=== PATIENT | male | born 1955 | race Caucasian/White ===

== ENCOUNTER 2019-10-07 18:09 | Emergency (ER) | payer MEDICARE, SELFPAY ==
[2019-10-07 18:10] VITALS: BP 146/77; PULSE 85; RESP 17; TEMP 36.9; O2SAT 100; BMI 33.9
--- NOTE | 2019-10-07 19:15 | CT_ITS ---
STUDY: CT ABDOMEN AND PELVIS WITHOUT CONTRAST REASON FOR EXAM: Male, 63 years old. RT FLANK/GROIN PAIN -- PRIOR CHOLECYSTECTOMY,HERNIA REPAIR -- HX:HTN RADIATION DOSAGE (If Supplied By Facility): CTDIvol = ( 14.45 ) mGy, DLP = ( 736.47 ) mGycm TECHNIQUE: Transaxial images were obtained from the dome of the diaphragm to the symphysis pubis without oral contrast, and without intravenous contrast. Sagittal and coronal images were reconstructed. Individualized dose optimization techniques were used for this CT. COMPARISON: 09/20/2015 FINDINGS: The visualized lung bases are unremarkable. The visualized portions of the heart are within normal limits. Normal liver. There is non-visualization of the gallbladder, which may be secondary to either contraction or a prior cholecystectomy. Normal spleen. Normal pancreas. Normal bilateral adrenal glands. Normal right kidney. Normal left kidney. There is a small hiatal hernia. Normal small intestine. There are multiple colonic diverticula consistent with diverticulosis. The appendix is visualized and appears normal. There is diffuse atherosclerotic calcification of the abdominal aorta, without a demonstrated aneurysm. Normal inferior vena cava. Normal retroperitoneum. Normal urinary bladder. There are prostatic calcifications. Small bilateral fat-containing inguinal hernias. Increased degenerative change as compared to exam from 2014 CT/Abdomen/Pelvis without Cont IMPRESSION: No acute findings. Unremarkable appendix. Mild chronic diverticulosis without evidence of acute diverticulitis. Electronically Signed: Charli Morgan DO at 20:23 EST Tel , Service support ,
[2019-10-07 19:34] LABS: Bacteria 0 SEEN /hpf (None Seen); Mucous, Urine 0 SEEN /hpf (<or=2+); Red Blood Cells-Urine 0 SEEN /hpf (0-5); White Blood Cells 0 SEEN /hpf (0-5)
[2019-10-07 19:36] LABS: Color, Urine Yellow (Yellow); Glucose, Dipstick Normal (Normal); Ketone-Dipstick Negative (Negative); Leukocyte Esterase-Dipstick Negative /ul (Negative); Nitrite-Dipstick Negative (Negative); Occult Blood-Urine Negative /ul (Negative); Protein-Dipstick Negative (Negative); Urine Bilirubin Dipstick Negative (Negative); Urine Clarity Sl. Cloudy (Clear); Urine Urobilinogen Normal (Normal)
[2019-10-07] MEDS: 0.9% Normal Saline 1,000 ML 1000 ML IV (19:44)
[2019-10-07] MEDS: Ketorolac 30 MG/ML Syringe IV (19:45)
[2019-10-07] MEDS: Ondansetron 4 MG/2 ML Vial IV (19:45)
[2019-10-07 19:46] LABS: Absolute Lymphocyte Count 1.39 X10^3/uL (0.83-4.51); Absolute Neutrophil Count 6.5 X10^3/uL (2.0-7.7); Basophil# 0.04 X10^3/uL; Basophil% 0.5 % (0-1); Eosinophils% 1.1 % (0-5); Hematocrit 36.8 % (40-54); Hemoglobin 12.7 g/dL (13.0-16.5); Lymphocyte # 1.39 X10^3/ul (4.0); Lymphocyte % 15.9 % (19-41); Mean Corp Hgb Conc 34.5 g/dL (32-36); Mean Corpuscular Hgb 31.8 pg (27.0-32.0); Monocyte# 0.62 X10^3/uL; Monocyte% 7.1 % (0-10); NRBC Flagged by Analyzer 0 % (0-5); Neutrophil # 6.54 X10^3/uL (2.7-7.7); Neutrophil % 75.1 % (47-70); Platelet Count 144 K/mm3 (150-450); RBC Distribution Width CV 11.9 % (11.6-14.6); RBC Distribution Width SD 40.4 fl (35.1-43.9); White Blood Count 8.7 K/mm3 (4.4-11.0)
[2019-10-07 19:59] LABS: Anion Gap 7 (5-15); BUN 28 mg/dL (7-18); Chloride 106 mmol/L (98-107); Creatinine, Serum 1.75 mg/dL (0.70-1.30); EST Glomerular Filtration Rate 42 mL/min (>60); Est Glom Filt Rate - Afr Amer 51 mL/min (>60); Estimated Creatinine Clearance 42.64 ml/min; Glucose 95 mg/dL (74-106); Potassium 3.9 mmol/L (3.5-5.1); Sodium Level 140 mmol/L (136-145)
[2019-10-07 20:08] LABS: Squamous Epithelial Cells - UA 0-5 SEEN /hpf (0-5)
--- NOTE | 2019-10-07 20:42 | ED.VISSUMM ---
- ER Visit Summary Date of Service: 10/07/19 Chief Complaint: Back pain History of Present Illness: The patient is a 63 M with right-sided back pain. The pain is in his lower back and radiates down into his groin. Nothing seemed to bring this on or set this off. It is worse with moving and sitting. Nothing seems to make it better. No associated symptoms like GI or symptoms. No fever or systemic symptoms. No history of this in the past. History of hernia surgery, cholecystectomy, and rectal abscess. Physical Examination: Afebrile and vital signs unremarkable. Heart regular. Lungs clear. Right lower quadrant tender to palpation. No guarding or rebound. Right CVA tender to palpation. Testicular exam unremarkable. Remainder of his exam is unremarkable. Normal testicular exam. No mass or hernia. No lesions. Normal cremasteric reflex. Normal lie. Nontender. Test Results: Hemoglobin 12.7 and platelets 144. BUN 28 and creatinine 1.75. Urinalysis normal. CT showed normal appendix and nothing acute. Emergency Department Course and Treatment: Patient was treated with fluids, Zofran, Toradol. He did have improvement of his symptoms. His work-up was unremarkable. I suspect this is myofascial pain. Will prescribe pain medicine and muscle relaxers. Follow-up with primary care for a recheck of symptoms and labs. Return for any new or worsening issues. Treatment Plan: As above Disposition: Discharge Impression: 1. Right flank pain This note was generated with [employer] dictation software. It may contain incorrect words, spelling, and punctuation that were not noted in review of the chart prior to signing ED Disposition - Plan for ED Patient: Instructions: FLANK PAIN, Uncertain Cause Prescriptions: cycloBENZAPRine HCl [Flexeril] 10 mg PO TID PRN #20 tab PRN Reason: Muscle Spasm Prescription Printed Naproxen [Naprosyn] 500 mg PO BID PRN #20 tab Prescription Printed Referrals: Valerio Babin III, MD [Primary Care Provider] -
--- NOTE | 2019-10-07 20:44 | ED.DEP ---
ED Disposition - Plan for ED Patient: Instructions: FLANK PAIN, Uncertain Cause Prescriptions: cycloBENZAPRine HCl [Flexeril] 10 mg PO TID PRN #20 tab PRN Reason: Muscle Spasm Prescription Printed Naproxen [Naprosyn] 500 mg PO BID PRN #20 tab Prescription Printed Referrals: Valerio Babin III, MD [Primary Care Provider] -
[2019-10-07 21:05] VITALS: BP 141/63; PULSE 80; RESP 19; O2SAT 98
== END 2019-10-07 21:06 | disposition home or self-care (01) ==
LOC: ED 19:41
PROVIDERS: Emergency Provider Emergency Medicine; Family Provider Family Medicine; PCP Family Medicine
DX: M54.5 Low back pain (principal); I10 Essential (primary) hypertension; Z90.49 Acquired absence of other specified parts of digestive tract; Z79.899 Other long term (current) drug therapy; F17.200 Nicotine dependence, unspecified, uncomplicated
CPT/HCPCS: 74176; 80048; 81001; 85025; 96361; 96374; 96375; 99282; J7030; A4216; J2405

== ENCOUNTER 2020-05-26 19:10 | Observation (INO) | payer MEDICARE, SELFPAY ==
[2020-05-26 19:11] VITALS: BP 138/88; PULSE 89; RESP 18; TEMP 36.7; O2SAT 97; BMI 32.7
--- NOTE | 2020-05-26 20:03 | EKG12_ITS ---
Test Reason : NUMB/TINGLING Blood Pressure : / mmHG Vent. Rate : 067 BPM Atrial Rate : 067 BPM P-R Int : 180 ms QRS Dur : 102 ms QT Int : 398 ms P-R-T Axes : 078 030 040 degrees QTc Int : 420 ms Normal sinus rhythm with sinus arrhythmia Normal ECG Confirmed by SHADI GARCIA, JOSE LUIS ([id number]), legal editor BHASKAR PEREZ ([id number]) on 06/03/2020 11:18:59 A M Referred By: JORJE Confirmed By:HARIKA HSU MD
--- NOTE | 2020-05-26 20:05 | CT_ITS ---
STUDY: CTA HEAD AND NECK WITH CONTRAST REASON FOR EXAM: Male, 64 years old. DIZZINESS,GAIT ISSUES AND NUMBNESS TO RT HAND WHEN LAYING DOWN X FEW WEEKS -- HX:HTN RADIATION DOSAGE (If Supplied By Facility): CTDIvol = ( 32.35 ) mGy, DLP = ( 1588.05 ) mGycm TECHNIQUE: CT angiography was performed with a multi-detector CT scanner. Data acquisition was obtained from the skull base through the vertex following intravenous administration of IV 100mL [id number]-370. MIP images were reconstructed from the axial data set. Post-processing of the angiographic images was performed, with multiplanar reformation and 3D reconstruction. Individualized dose optimization techniques were used for this CT. COMPARISON: No relevant priors. FINDINGS: Normal bilateral petrous carotid arteries. Normal right cavernous carotid artery with a normal supraclinoid bifurcation. Normal left cavernous carotid artery with a normal supraclinoid bifurcation. There is hypoplastic development of the right A1 segment of the anterior cerebral arteries with an atretic but intact artery. Normal left A1 segments of the anterior cerebral artery. Normal intact anterior communicating artery (ACOM). Normal bilateral A2 segments of the anterior cerebral arteries. Normal right M1 and M2 segments of the middle cerebral arteries, with a normal M1 bifurcation. Normal left M1 and M2 segments of the middle cerebral arteries, with a normal M1 bifurcation. Normal right posterior communicating artery (PCOM). There is non-visualization of the left posterior communicating artery (PCOM). Normal bilateral vertebral arteries. Normal basilar artery with a normal basilar bifurcation. The visualized bilateral superior cerebellar (SCA) arteries are normal. Normal bilateral P1, P2 and visualized P3 segments of the posterior cerebral arteries. There is no demonstrated aneurysm of the [place]. There is left occipital craniotomy with focal volume loss. There is cervical spondylosis. AORTIC ARCH: Normal visualized aortic arch. Normal origins of the brachiocephalic, left common carotid, and left subclavian arteries. RIGHT CAROTID ARTERIES: Normal right common carotid artery (CCA). Normal right common carotid bulb. Normal origin of the right internal carotid (ICA) artery without a hemodynamically significant stenosis. Normal visualized cervical portion of the right internal carotid artery. Normal origin of the right external carotid artery (ECA). LEFT CAROTID ARTERIES: Normal left common carotid artery (CCA). Normal left common carotid bulb. There is mild atherosclerotic plaque formation of the origin of the left internal carotid artery with less than 50% cross sectional diameter stenosis. Normal visualized cervical portion of the left internal carotid artery. Normal origin of the left external carotid artery (ECA). VERTEBRAL ARTERIES: Normal bilateral vertebral arteries. CT/CTA Head AND Neck W/ Contrast IMPRESSION: No aneurysm or high-grade narrowing. Electronically Signed: Jose Miguel Lombardi MD at 21:39 EDT , Service support ,
--- NOTE | 2020-05-26 20:10 | ED.DCSUM_ITS ---
History of Present Illness Chief Complaint: Numb/Ting Informant: Patient Onset: Weeks Current Severity: Mild Maximum Severity: Moderate Narrative: Patient presents secondary to intermittent tingling in his right hand and dragging of his right leg. He states he is noted his right hand will intermittently go numb affecting his thumb, index, long, and ring fingers. He states this usually happens when he is laying down. He is also noted problems with fine motor control such as writing and painting. He does also state that he has been intermittently dragging his right leg for the past couple of weeks. Today he did not seem to have symptoms affecting his leg. - Past Medical History (1) Hypertension Status: Chronic Past Medical History - Allergies and Home Meds Allergies/Adverse Reactions: Allergies No Known Allergies Allergy (Verified 05/26/20 19:14) Primary Care Physician: Valerio Babin III, MD [Primary Care Provider] - Prior records reviewed: Yes Surgical History: cholecystectomy Smoking Status: Current every day smoker Review of Systems General: Denies: Chills, Fever Eyes: Denies: Visual changes - bilaterally ENT: Denies: Bilateral ear pain Cardiovascular: Denies: Chest pain Respiratory: Denies: Dyspnea, Cough Gastrointestinal: Denies: Abdominal pain, Nausea, Vomiting, Diarrhea Musculoskeletal: Denies: Extremity Pain Skin: Denies: Rash Neurological: Reports: Weakness, Parasthesia, Numbness Hematologic: Denies: Easy bruising, Easy bleeding Allergy: Denies: Uticaria Physical Exam Vital Signs/Narrative: Vital Signs Temp Pulse Resp BP Pulse Ox 05/26/20 19:11 98.1 F 89 18 138/88 H 97 Inital Vital Signs reviewed: Yes General: Well nourished, Well developed Head: Normocephalic ENT: Moist mucous membranes, Nasal congestion Cardiovascular: Regular rate, Regular rhythm Respiratory: No distress, CTA bilaterally Abdomen: Soft, Nontender Extremities: Nontender Skin: Normal color Neurological: Alert, Oriented x3, Normal Strength, Normal Sensation, - - NIH e quals 0 at time of exam Psychological: Normal affect Diagnostic/Tx/Re-eval Impressions Head/Neck CTA 05/26/20 20:05 IMPRESSION: No aneurysm or high-grade narrowing. Electronically Signed: Jose Miguel Lombardi MD at 21:39 EDT , Service support , 05/26/20 20:05 CTA Head AND Neck W/ Contrast [CT] Stat Laboratory Results 05/26/20 05/26/20 05/26/20 19:35 19:35 19:35 WBC 7.4 RBC 3.56 L Hgb 11.5 L Hct 34.0 L MCV 95.5 H MCH 32.3 H MCHC 33.8 RDW Std Deviation 43.3 RDW Coeff of [place] 12.6 Plt Count 169 MPV 10.6 Immature Gran % (Auto) 0.300 Neut % (Auto) 66.1 Lymph % (Auto) 22.5 [place] % (Auto) 8.7 Eos % (Auto) 1.9 Baso % (Auto) 0.5 Absolute Neuts (auto) 4.9 Absolute Lymphs (auto) 1.66 Nucleated RBC % 0 PT 13.0 INR 1.0 APTT 34.5 Sodium 141 Potassium 3.5 Chloride 109 H Carbon Dioxide 26.0 Anion Gap 6 BUN 33 H Creatinine 1.44 H Estim Creat Clear Calc 51.14 Est GFR (MDRD) Af Amer 63 Est GFR (MDRD) Non-Af 52 L BUN/Creatinine Ratio 22.9 H Glucose 116 H Calcium 9.0 Troponin I < 0.015 - EKG Initial EKG Interpretation: Sinus Rhythm - Sinus at 67 with no acute ischemia. - Medical Decision Making Patient initially presents complaining of tingling in his hand when laying down. The patient does, however, also report episodes of dragging his right leg behind him and having it not work appropriately. This raises my concern for potential TIAs. At this time CTA is unremarkable. He is agreeable to stay for MRI in the morning and further evaluation. I will speak with the hospitalist. ED Disposition - Plan for ED Patient: Disposition: Acute Care Hospital [facility] Diagnosis: TIA (transient ischemic attack) Referrals: Valerio Babin III, MD [Primary Care Provider] -
[2020-05-26 20:20] LABS: Absolute Lymphocyte Count 1.66 X10^3/uL (0.83-4.51); Absolute Neutrophil Count 4.9 X10^3/uL (2.0-7.7); Basophil# 0.04 X10^3/uL; Basophil% 0.5 % (0-1); Eosinophil# 0.14 X10^3/uL; Eosinophils% 1.9 % (0-5); Hemoglobin 11.5 g/dL (13.0-16.5); Lymphocyte # 1.66 X10^3/ul (4.0); Lymphocyte % 22.5 % (19-41); Mean Corp Hgb Conc 33.8 g/dL (32-36); Mean Corpuscular Hgb 32.3 pg (27.0-32.0); Mean Corpuscular Volume 95.5 fL (80-94); Mean Platelet Vol. 10.6 fl (6.2-12.0); Monocyte# 0.64 X10^3/uL; Monocyte% 8.7 % (0-10); NRBC Flagged by Analyzer 0 % (0-5); Neutrophil # 4.88 X10^3/uL (2.7-7.7); Neutrophil % 66.1 % (47-70); Platelet Count 169 K/mm3 (150-450); RBC Distribution Width CV 12.6 % (11.6-14.6); RBC Distribution Width SD 43.3 fl (35.1-43.9); Red Blood Count 3.56 M/mm3 (4.6-6.2); White Blood Count 7.4 K/mm3 (4.4-11.0)
[2020-05-26 20:35] LABS: Partial Thromboplast Time 34.5 Seconds (24.1-36.2)
[2020-05-26 20:38] LABS: Anion Gap 6 (5-15); BUN 33 mg/dL (7-18); BUN/Creat Ratio 22.9 RATIO (10-20); Chloride 109 mmol/L (98-107); Creatinine, Serum 1.44 mg/dL (0.70-1.30); EST Glomerular Filtration Rate 52 mL/min (>60); Est Glom Filt Rate - Afr Amer 63 mL/min (>60); Estimated Creatinine Clearance 51.14 ml/min; Glucose 116 mg/dL (74-106); Potassium 3.5 mmol/L (3.5-5.1); Sodium Level 141 mmol/L (136-145)
[2020-05-26 22:16] VITALS: PULSE 60; RESP 16; O2SAT 97
--- NOTE | 2020-05-26 23:01 | PCM.HP.STD ---
Problem List (1) Stroke-like episode Status: Acute (2) Stroke-like symptoms Status: Acute (3) Hypertension Status: Chronic (4) TIA (transient ischemic attack) Status: Acute History of Present Illness Date of Admission: 05/26/20 Chief Complaint: numbness and tingling of fingers of right hand. The patient is a 64 year old M with a significant history of hypertension who presented with 2-week history of numbness and tingling of fingers of right hand. Fingers involved are his right thumb to his fourth finger. Associated with his symptoms is a tingling of the same fingers. Further he has a problem with fine motor activities and with eating with his right hand. Further he has been dragging his right feet. He denies any change in speech, or vision. Past Medical History Past Medical History (Chronic Problems): Chronic Problems Hypertension (Chronic) Allergies No Known Allergies Allergy (Verified 05/26/20 19:14) Home Medications: Ambulatory Orders Medication Instructions Recorded Bisoprol/Hydrochlorothiazide [Ziac 1 tab PO DAILY 09/17/13 5/6.25 MG Tablet] Multivitamins,Ther W-Minerals 1 tablet PO DAILY 09/17/13 [Multivitamin With Minerals ([facility])] [place]-3 Fatty Acids/Fish Oil [Fish 1 each PO DAILY 09/17/13 Oil 1,000 mg Capsule] Lisinopril 12.5 mg PO DAILY 09/20/15 Surgical History: cholecystectomy Smoking Status: Current every day smoker Tobacco Use: Cigarettes Alcohol: Occasional - *Family History Maternal History Items: Diabetes Paternal History Items: Heart Disease Review of Systems Constitutional: Denies: Chills, Fever, Weight Change HEENT: Denies: Head Aches, Sinus Congestion, Sinus Drainage Cardiovascular: Denies: Chest Pain, Palpitations Respiratory: Denies: Cough, Shortness of breath at rest, Sputum production Gastrointestinal: Denies: Abdominal Pain, Nausea, Vomiting Genitourinary: Denies: Dysuria Musculoskeletal: Denies: Joint Pain, Joint Tenderness Skin: Denies: Rash, Wounds Neurological: Reports: Focal weakness, Numbness, Tingling Psychiatric: Denies: Anxiety, Depression, Homicidal Ideations, Suicidal Ideations Hematologic/ Lymphatic: Denies: Easy Bruising, Easy Bleeding VTE Information - Inpt Only VTE Present on Admission: No VTE Mechan Device Prophylaxis: None VTE Pharm Prophylaxis ordered?: Yes Patient Problems: Active and Suspected Problems TIA (transient ischemic attack) (Acute) Stroke-like episode (Acute) Stroke-like symptoms (Acute) - Physical Exam Vitals/I&O's: Vital Signs Temp Pulse Resp BP Pulse Ox 98.1 F 60 16 138/88 H 97 05/26/20 19:11 05/26/20 22:16 05/26/20 22:16 05/26/20 19:11 05/26/20 22:16 Oxygen Delivery Method Room Air Weight: 100.5 kg Body Mass Index (BMI) 32.7 General: Alert, Oriented x3, Cooperative HEENT: Atraumatic, PERRLA, EOMI, Normocephalic Neck: Supple, No JVD, Negative Carotid Bruits Lungs: Clear to auscultation, Normal air movement Cardiovascular: Regular rate, Normal S1, Normal S2, No murmurs Abdomen: Bowel Sounds Present, Soft, Non Tender Extremities: No edema, Capillary Refill Less than 3 Seconds Skin: No rashes, No breakdown Musculoskeletal: No Tenderness to Palpation of Joints or Extremities Neurological: Cranial nerves II-XII grossly intact, Deep Tendon Reflexes 2+/4 and Symmetrical, Muscle tone normal, - - No dysmetria. Gait was not assessed. Psych/Mental Status: Normal Affect, Appropriate Laboratory Results 05/26/20 19:35: WBC 7.4, RBC 3.56 L, Hgb 11.5 L, Hct 34.0 L, MCV 95.5 H, MCH 32.3 H, MCHC 33.8, RDW Std Deviation 43.3, RDW Coeff of [place] 12.6, Plt Count 169, MPV 10.6, Immature Gran % (Auto) 0.300, Neut % (Auto) 66.1, Lymph % (Auto) 22.5, [place] % (Auto) 8.7, Eos % (Auto) 1.9, Baso % (Auto) 0.5, Absolute Neuts (auto) 4.9, Absolute Lymphs (auto) 1.66, Nucleated RBC % 0 05/26/20 19:35: PT 13.0, INR 1.0, APTT 34.5 05/26/20 19:35: Sodium 141, Potassium 3.5, Chloride 109 H, Carbon Dioxide 26.0, Anion Gap 6, BUN 33 H, Creatinine 1.44 H, Estim Creat Clear Calc 51.14, Est GFR (MDRD) Af Amer 63, Est GFR (MDRD) Non-Af 52 L, BUN/Creatinine Ratio 22.9 H, Glucose 116 H, Calcium 9.0, Troponin I < 0.015 Current Medications Iopamidol (Contrast Allergy Check) 0 ml IV X1 NESS Assessment/Plan All Active Problems TIA (transient ischemic attack) (Acute) Stroke-like episode (Acute) Stroke-like symptoms (Acute) The patient is a 64 year old M with a significant history of hypertension who presented with 2-week history of numbness and tingling of fingers of right hand; motor activities of his right hand; and a weakness of his right leg. Strokelike symptoms Different diagnoses include cervical pathology. NINDS NIH Scale at the emergency department was . CT a head and neck was not revealing -Check Hba1c, Lipid level Physical therapy, and occupational therapy to work with patient. Patient passed speech evaluation in the emergency department. Daily aspirin ordered High intensity statin ordered.. Lipid profile and A1c ordered. Patient is outside window of permissive hypertension. MRI brain ordered Echocardiogram ordered. Different diagnoses include cervical spine pathology will order MRI of cervical spine. Hypertension On presentation blood pressure was now within goal On home bisoprolol/hydrochlorothiazide, continued On home lisinopril; continued. CKD stage III Stable Gentle IV hydration in view of patient receiving IV contrast. Tobacco abuse Counseled Declined nicotine patch. DVT prophylaxis Subcutaneous Lovenox. OBSV E&M: 31205 Initial observation care L3
[2020-05-26 23:19] VITALS: BP 126/74; PULSE 72; RESP 14; TEMP 36.3; O2SAT 98
[2020-05-27] VITALS (8 sets, daily range): BP systolic 102–121; BP diastolic 54–74; PULSE 60–74; RESP 14–17; TEMP 36.4–36.7; O2SAT 94–100; BMI 32.5; BMI 32.6
--- NOTE | 2020-05-27 00:17 | ECHOCS_ITS ---
Reason For Study: TIA/CVA Procedure This was a 2D Doppler, Color Flow transthoracic echocardiogram. Contrast injection was performed. Exam performed portable in patient room. Left Ventricle Normal LV size. The estimated ejection fraction is 65 %. No evidence for diastolic dysfunction. No regional wall motion abnormalities noted. Right Ventricle Normal RV size. Normal systolic function. Atria Normal left atrium. Normal right atrium. No doppler evidence for ASD. Bubble contrast study negative for right to left interatrial shunt. Mitral Valve There is no mitral valve stenosis. Trivial mitral valve insufficiency. Tricuspid Valve There is no tricuspid stenosis. Trivial tricuspid valve insufficiency. Unable to estimate RV systolic pressure due to insufficient tricuspid regurgitant envelope. Aortic Valve Trisinus/trileaflet aortic valve. Mild diffuse aortic valve thickening. There is no aortic stenosis. No aortic valve insufficiency. Pulmonic Valve There is no pulmonic valvular stenosis. No pulmonic valve insufficiency. Great Vessels Normal aortic root. Pericardium/Pleural No pericardial effusion. Medication Diluted definity 2ml given slow IV push to enhance endocardial definition. Performed a rapid injection of agitated mix of 9 cc saline and 1cc air to assess for atrial septal defect. MMode/2D Measurements & Calculations LVIDd: 4.8 cm IVSd: 1.1 cm Ao root diam: 3.4 cm LVIDs: 2.6 cm LVPWd: 1.2 cm LA dimension: 3.7 cm RVDd: 3.8 cm FS: 45.4 % LAV(MOD-bp): 64.0 ml LA A4 area: 21.1 cm2 RA A4 area: 16.2 cm2 LAV(MOD-bp) Indexed: 29.7 ml/m2 LAV(MOD-sp2): 59.2 ml LAV(MOD-sp4): 63.3 ml Time Measurements MV dec time: 0.24 sec Doppler Measurements & Calculations MV E max rhett: 86.9 cm/sec Lat Peak E' Rhett: 8.6 cm/sec Med Peak E' Rhett: 8.4 cm/sec MV A max rhett: 65.9 cm/sec E/E' lat: 10.0 E/E' med: 10.4 MV E/A: 1.3 MV V2 max: 83.8 cm/sec MV P1/2t max rhett: 81.9 cm/sec Ao V2 max: 131.4 cm/sec MV max P.8 mmHg MV P1/2t: 83.4 msec Ao max P.9 mmHg MV V2 mean: 45.2 cm/sec MV dec slope: 287.6 cm/sec2 MV mean P.96 mmHg MV V2 VTI: 32.7 cm MVA(P1/2t): 2.6 cm2 LV V1 max: 114.6 cm/sec PA V2 max: 84.7 cm/sec LV V1 max P.3 mmHg Interpretation Summary The estimated ejection fraction is 65 %. No evidence for diastolic dysfunction. Trivial mitral valve insufficiency. Bubble contrast study negative for right to left interatrial shunt. The study was technically difficult. Contrast injection was performed. Ordering Physician: Robin Rodriguez Referring Physician: KAYLEN Babin M.D. Performed By: Jeet Keating RCS
--- NOTE | 2020-05-27 00:17 | MRI_ITS ---
STUDY: MRI CERVICAL SPINE WITHOUT CONTRAST REASON FOR EXAM: Male, 64 years old. spinal stenosis, numbness and tingling TECHNIQUE: Standardized fat and water weighted pulse sequences were obtained in the sagittal and axial planes. COMPARISON: None FINDINGS: Normal foramen magnum and brainstem-cervical cord junction. Normal craniovertebral junction. There are degenerative changes of the anterior atlantoaxial articulation. Normal odontoid process. There is straightening of the normal cervical lordosis. Grade 1 retrolisthesis at C4-5. There is no acute fracture. Normal vertebral bodies and posterior osseous elements. C2-3: Normal endplates. Normal disc height, signal and morphology. Normal central canal and intervertebral neural foramina. Facet spurring on the right more than the left. C3-4: Disc space narrowing. Disc bulge and spurring to the right. Moderate canal stenosis. Neural foramina are patent. C4-5: Disc space narrowing. Disc bulge and spurring. Moderate canal stenosis. Facet spurring. Uncovertebral spurring with left greater than right foraminal narrowing. C5-6: Disc space narrowing. Disc bulge and spurring to the right. Moderate canal stenosis. Facet spurring. Uncovertebral spurring with right greater than left foraminal narrowing. C6-7: Disc bulge and spurring to the left. Mild facet spurring. Moderate canal stenosis. Uncovertebral spurring with left foraminal narrowing. C7-T1: Disc space narrowing. Disc bulge and spurring. Facet spurring. Uncovertebral spurring with right greater than left foraminal narrowing. Normal cervical cord. Normal visualized soft tissue structures. MRI/Spine Cervical (Routine) IMPRESSION: Multilevel degenerative changes, as described above. Electronically Signed: Jose Miguel Lombardi MD at 9:41 EDT , Service support ,
--- NOTE | 2020-05-27 00:17 | MRI_ITS ---
STUDY: MRI BRAIN WITHOUT CONTRAST REASON FOR EXAM: Male, 64 years old. cva, numbness and tingling X 1 week TECHNIQUE: Standardized multiplanar fat and water weighted pulse sequences were obtained. COMPARISON: CT . FINDINGS: Normal size of the ventricles and extra-axial spaces for the patient''s age. Normal white matter tracts of the supratentorial brain. There is left posterior occipital volume loss and encephalomalacia. There is adjacent craniotomy. There is no evidence for recent intracranial ischemia or other cause of cytotoxic edema on diffusion weighted imaging (DWI). Normal T2* images of the brain without demonstrated susceptibility artifact. There is no demonstrated hemosiderin stain. Normal bilateral basal ganglia. Normal thalami. There is no extra-axial fluid accumulation. Normal flow voids within the major intracranial circulation suggesting patency by spin echo criteria. Normal sella turcica, pituitary gland, infundibular stalk, optic chiasm and hypothalamus. Normal tectal plate and pineal gland. Normal midbrain, kavya and medulla. Normal cerebellum. Normal basal cisterns. 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 Normal bilateral internal auditory canals. No demonstrated orbital abnormality, within the constraints of a routine brain study. Normal visualized paranasal sinuses. Normal calvarium and skull base. Normal visualized soft tissue structures. Normal visualized upper cervical spine. MRI/Brain without Contrast IMPRESSION: Stable left occipital encephalomalacia and postoperative change. No acute intracranial abnormality. No hemorrhage. Electronically Signed: Jose Miguel Lombardi MD at 9:03 EDT , Service support ,
[2020-05-27] MEDS: 0.9% Normal Saline 1,000 ML 100 ML IV (00:46)
[2020-05-27] MEDS: 0.9% Saline Lock 10 ML Syringe IV (00:46)
[2020-05-27 01:01] LABS: Hemoglobin A1c 5.5 % (3.8-5.6)
[2020-05-27] MEDS: Atorvastatin Calcium 40 MG Tablet PO (01:54)
[2020-05-27 06:51] LABS: Cholesterol 118 mg/dL (200); High Density Lipoprotein 34 mg/dL; Triglycerides 159 mg/dL; Very Low Density Lipoprotein 32 mg/dL (5-40)
[2020-05-27] MEDS: Aspirin 81 MG TAB.CHEW PO (09:44)
[2020-05-27] MEDS: Omega-3 Acid Ethyl Esters 1 GM Capsule PO (09:45)
[2020-05-27] MEDS: Lisinopril 5 MG Tablet 12.5 MG PO (09:45)
[2020-05-27] MEDS: Multivitamins,Ther W-Minerals Tablet 1 TABLET PO (09:45)
--- NOTE | 2020-05-27 13:59 | PCM.DC ---
- Discharge Diagnoses Current Active Problems: Current Active and Chronic Problems Hypertension (Chronic) TIA (transient ischemic attack) (Acute) Stroke-like episode (Acute) Stroke-like symptoms (Acute) You will use the following diet at home:: Calorie/Carbohydrate Controlled (specify 1200, 1400, etc) - 2000 Your food should be the consistency of: Regular Your liquids should be the consistency of: Regular/Thin Discharge Activity: Return to Normal Activity Call your doctor if you observe: Fever of 101 or Higher, Shortness of breath, Dizziness, Fainting spells, Swelling in the ankles, Chest pain, Increased palpitations (irregular heartbeat) Allergies/Adverse Reactions: Allergies No Known Allergies Allergy (Verified 05/26/20 19:14) Medications to take at Discharge Multivitamins,Ther W-Minerals [Multivitamin With Minerals (BKC)] 1 tablet PO DAILY 09/17/13 [place]-3 Fatty Acids/Fish Oil [Fish Oil 1,000 mg Capsule] 1 each PO DAILY 09/17/13 Lisinopril 12.5 mg PO DAILY 09/20/15 Aspirin [Aspirin, Baby] 81 mg PO DAILY@0800 #0 tab.chew 05/27/20 Cider Vinegar [Apple Cider Vinegar] 600 mg PO DAILY 05/27/20 Primary Care Physician: Valerio Babin III, MD [Primary Care Provider] - Please follow up with your Primary Care Physician in: 3-5 days Test Results: Test results from this visit will be discussed in further detail at your follow-up appointment, if applicable.
--- NOTE | 2020-05-27 14:04 | PCM.DC.SUM ---
Discharge Date and Diagnosis - Problem List Patient Problems: Active and Suspected Problems TIA (transient ischemic attack) (Acute) Stroke-like episode (Acute) Stroke-like symptoms (Acute) Date of Admission: 05/26/20 Date of Discharge: 05/27/20 - Primary Discharge Diagnosis Acute Problems: Active Problems TIA (transient ischemic attack) (Acute) Stroke-like episode (Acute) Stroke-like symptoms (Acute) - Secondary Discharge Diagnosis Chronic Problems: Chronic Problems Hypertension (Chronic) Hospital Course and Treatment Imaging Results: Clinical Impression(s) from Imaging Studies Head/Neck CTA 05/26/20 20:05 IMPRESSION: No aneurysm or high-grade narrowing. Electronically Signed: Jose Miguel Lombardi MD at 21:39 EDT , Service support , Brain MRI 05/27/20 00:17 IMPRESSION: Stable left occipital encephalomalacia and postoperative change. No acute intracranial abnormality. No hemorrhage. Electronically Signed: Jose Miguel Lombardi MD at 9:03 EDT , Service support , Cervical Spine MRI 05/27/20 00:17 FINDINGS: Normal foramen magnum and brainstem-cervical cord junction. Normal craniovertebral junction. There are degenerative changes of the anterior atlantoaxial articulation. Normal odontoid process. There is straightening of the normal cervical lordosis. Grade 1 retrolisthesis at C4-5. There is no acute fracture. Normal vertebral bodies and posterior osseous elements. C2-3: Normal endplates. Normal disc height, signal and morphology. Normal central canal and intervertebral neural foramina. Facet spurring on the right more than the left. C3-4: Disc space narrowing. Disc bulge and spurring to the right. Moderate canal stenosis. Neural foramina are patent. C4-5: Disc space narrowing. Disc bulge and spurring. Moderate canal stenosis. Facet spurring. Uncovertebral spurring with left greater than right foraminal narrowing. C5-6: Disc space narrowing. Disc bulge and spurring to the right. Moderate canal stenosis. Facet spurring. Uncovertebral spurring with right greater than left foraminal narrowing. C6-7: Disc bulge and spurring to the left. Mild facet spurring. Moderate canal stenosis. Uncovertebral spurring with left foraminal narrowing. C7-T1: Disc space narrowing. Disc bulge and spurring. Facet spurring. Uncovertebral spurring with right greater than left foraminal narrowing. Normal cervical cord. Normal visualized soft tissue structures. IMPRESSION: Multilevel degenerative changes, as described above. Electronically Signed: Jose Miguel Lombardi MD at 9:41 EDT , Service support , Echo: Interpretation Summary The estimated ejection fraction is 65 %. No evidence for diastolic dysfunction. Trivial mitral valve insufficiency. Bubble contrast study negative for right to left interatrial shunt. The study was technically difficult. Contrast injection was performed. Consults: None Operations: None Procedures: None Summary of Care Provided: Per HPI: The patient is a 64 year old M with a significant history of hypertension who presented with 2-week history of numbness and tingling of fingers of right hand. Fingers involved are his right thumb to his fourth finger. Associated with his symptoms is a tingling of the same fingers. Further he has a problem with fine motor activities and with eating with his right hand. Further he has been dragging his right feet. He denies any change in speech, or vision. Hospital Course: 1. Cervical spine radiculopathy versus CVA/LPX-89-xhss-old male presented to the hospital with a two-week history of numbness and tingling of the fingers of his right hand as well as some motor weakness in his right hand and some weakness of his right leg. This is all been intermittent. Initially on NIH was 0 and remained 0 during his hospitalization. He did have an MRI of his brain which was unremarkable. However the MRI of his neck demonstrated right disc bulging consistent with numbness and tingling as well as weakness for his right hand. I recommend that he follow-up with a spine surgeon for evaluation. In the meantime he was started on aspirin, however his lipid panel was unremarkable with an LDL of 52 therefore I decided against sending him home on a statin at this is likely not a CVA or a TIA and most likely cervical spine radiculopathy. An echo was obtained which was unremarkable, and I discussed the plan for discharge with the patient and his who both expressed understanding of the risks and benefits of going home today. 2. Hypertension, hyperlipidemia, CKD 3 are all chronic conditions which complicate his care. His home medications were continued where appropriate Patient Problems: Active and Suspected Problems TIA (transient ischemic attack) (Acute) Stroke-like episode (Acute) Stroke-like symptoms (Acute) - Physical Exam Vitals/I&O's: Vital Signs Temp Pulse Resp BP Pulse Ox 97.9 F 63 16 110/54 L 99 05/27/20 07:50 05/27/20 07:50 05/27/20 07:50 05/27/20 07:50 05/27/20 07:50 Oxygen Delivery Method Room Air Weight: 220 lb 10.923 oz Body Mass Index (BMI) 32.5 Intake and Output for Last 24 Hours 05/25/20 05/26/20 05/27/20 23:59 23:59 23:59 Intake Total 958.33 / 958.33 Balance 958.33 / 958.33 General: Alert, Oriented x3, Cooperative, No apparent distress HEENT: Atraumatic, PERRLA, EOMI, Normocephalic Oral: Moist Mucosa Neck: Supple, No JVD Lungs: Clear to auscultation, Normal air movement, No rhonchi, No wheeze, No rales, Diminished Cardiovascular: Regular rate, Regular Rhythm, Normal S1, Normal S2, No murmurs Abdomen: Soft, Non Tender, Non-Distended, No Hepato-splenomegaly Extremities: No edema, Capillary Refill Less than 3 Seconds Skin: No rashes, No breakdown Neurological: Cranial nerves II-XII grossly intact, Deep Tendon Reflexes 2+/4 and Symmetrical, Neuro grossly intact, Motor Exam 5/5 strength throughout, Sensory exam intact to light touch and pain Psych/Mental Status: Normal Affect, Appropriate Laboratory Results 05/26/20 19:35: WBC 7.4, RBC 3.56 L, Hgb 11.5 L, Hct 34.0 L, MCV 95.5 H, MCH 32.3 H, MCHC 33.8, RDW Std Deviation 43.3, RDW Coeff of Diego 12.6, Plt Count 169, MPV 10.6, Immature Gran % (Auto) 0.300, Neut % (Auto) 66.1, Lymph % (Auto) 22.5, Dougherty % (Auto) 8.7, Eos % (Auto) 1.9, Baso % (Auto) 0.5, Absolute Neuts (auto) 4.9, Absolute Lymphs (auto) 1.66, Nucleated RBC % 0 05/26/20 19:35: PT 13.0, INR 1.0, APTT 34.5 05/26/20 19:35: Sodium 141, Potassium 3.5, Chloride 109 H, Carbon Dioxide 26.0, Anion Gap 6, BUN 33 H, Creatinine 1.44 H, Estim Creat Clear Calc 51.14, Est GFR (MDRD) Af Amer 63, Est GFR (MDRD) Non-Af 52 L, BUN/Creatinine Ratio 22.9 H, Glucose 116 H, Calcium 9.0, Troponin I < 0.015 05/26/20 19:35: Hemoglobin A1c 5.5 05/27/20 05:53: Triglycerides 159, Cholesterol 118, LDL Cholesterol 52, VLDL Cholesterol 32, HDL Cholesterol 34 L Current Medications Acetaminophen (Tylenol) 650 mg PO Q6H PRN PRN PRN Reason: Pain Score 1-10/Temp > 100.7 F Aspirin (Aspirin, Baby) 81 mg PO DAILY@0800 [facility] Last Admin: 05/27/20 09:44 Dose: 81 mg Documented by: Atorvastatin Calcium (Lipitor) 40 mg PO QHS [facility] Last Admin: 05/27/20 01:54 Dose: 40 mg Documented by: Enoxaparin Sodium (Lovenox) 40 mg SC DAILY [facility] Last Admin: 05/27/20 11:39 Dose: Not Given Documented by: Lisinopril (Zestril) 12.5 mg PO DAILY [facility] Last Admin: 05/27/20 09:45 Dose: 12.5 mg Documented by: Melatonin (Melatonin) 3 mg PO QHS PRN PRN PRN Reason: INSOMNIA Multivitamins/Minerals ([facility]it[facility] With [facility] ([facility])) [facility] Admin: 05/27/20 09:45 Dose: 1 tablet Documented by: [id number] Ethyl Esters (Lovaza) 1 gm PO DAILY [facility] Last Admin: 05/27/20 09:45 Dose: 1 gm Documented by: Ondansetron HCl (Zofran) 4 mg IV Q8H PRN PRN PRN Reason: NAUSEA/VOMITING Sodium Chloride () 10 - 40 ml IV UD PRN PRN Reason: SALINE FLUSH Last Admin: 05/27/20 00:46 Dose: 10 ml Documented by: Discharge Activity: Return to Normal Activity Call your doctor if you observe: Fever of 101 or Higher, Shortness of breath, Dizziness, Fainting spells, Swelling in the ankles, Chest pain, Increased palpitations (irregular heartbeat) Home Medications: Medications to take at Discharge Multivitamins,Ther W-Minerals [Multivitamin With Minerals (BKC)] 1 tablet PO DAILY 09/17/13 [place]-3 Fatty Acids/Fish Oil [Fish Oil 1,000 mg Capsule] 1 each PO DAILY 09/17/13 Lisinopril 12.5 mg PO DAILY 09/20/15 Aspirin [Aspirin, Baby] 81 mg PO DAILY@0800 #0 tab.chew 05/27/20 Cider Vinegar [Apple Cider Vinegar] 600 mg PO DAILY 05/27/20 Primary Care Physician: Valerio Babin III, MD [Primary Care Provider] - Please follow up with your Primary Care Physician in: 3-5 days Disposition: Home Minutes spent on discharge:: 35 Patient Condition:: Stable Medical Necessity - Tobacco Use Smoking Status: Current every day smoker Tobacco Use: Cigarettes Meaningful Use Info Meaningful Use Diagnoses (Choose all that apply): None applicable OBSV E&M: 27696 Observation care discharge
== END 2020-05-27 14:02 | disposition home or self-care (01) ==
LOC: ED 22:59 → PCU 23:35
PROVIDERS: Admitting Provider Hospitalist; Emergency Provider Emergency Medicine; PCP Family Medicine; Visit Provider Family Medicine
DX: G45.9 Transient cerebral ischemic attack, unspecified (principal); I12.9 Hypertensive chronic kidney disease with stage 1 through stage 4 chronic kidney disease, or unspecified chronic kidney disease; E78.5 Hyperlipidemia, unspecified; N18.3 Chronic kidney disease, stage 3 (moderate); F17.210 Nicotine dependence, cigarettes, uncomplicated; R29.700 NIHSS score 0; Z79.899 Other long term (current) drug therapy
CPT/HCPCS: 36415; 70496; 70498; 70551; 72141; 80048; 80061; 83036; 84484; 85025; 85610; 85730; 93005; 93306; 94762; 96360; 96361; 99218; 99285; 99406; J7030; Q9957; Q9967; A4216; C8929; G0378

== ENCOUNTER 2020-07-18 20:37 | Emergency (ER) | payer MEDICARE, SELFPAY ==
[2020-05-27 00:24] VITALS: BMI 32.5
[2020-07-18 20:37] VITALS: BP 121/92; PULSE 94; RESP 18; TEMP 36.3; O2SAT 98; BMI 30.4
--- NOTE | 2020-07-18 20:46 | RAD_ITS ---
STUDY: X-RAY - NASAL BONES REASON FOR EXAM: Male, 64 years old. FALL, DEVIATED NOSE STATUS POST BLUNT TRAUMA TECHNIQUE: 3 view(s) of the nasal bones. COMPARISON: None. FINDINGS: Normal nasal bones. Normal anterior nasal spine. There is no demonstrated soft tissue swelling. The remaining visualized osseous structures are normal. Normal visualized paranasal sinuses. RAD/Nasal Bones min 3 Views IMPRESSION: Normal x-ray examination of the nasal bones. Electronically Signed: Fuentes Leong DO at 21:29 EDT Tel [phone], Service support ,
--- NOTE | 2020-07-18 20:50 | RAD_ITS ---
STUDY: X-RAY - RIGHT HAND, ATTENTION 4TH FINGER REASON FOR EXAM: Male, 64 years old. FALL, RIGHT RING FINGER PAIN AND SWELLING TECHNIQUE: 3 view(s) of the finger were obtained. COMPARISON: None. FINDINGS: Normal metacarpal head. Normal metacarpophalangeal joint. Normal proximal phalanx. There is a fracture at the base of the middle phalanx. Normal distal phalanx. Normal proximal interphalangeal joint. Normal distal interphalangeal joint. Soft tissue swelling of the finger. RAD/Finger(s) Min 2 Views IMPRESSION: Fracture at the base of the middle phalanx. Electronically Signed: Fuentes Leong DO at 21:26 EDT Tel [phone], Service support ,
--- NOTE | 2020-07-18 21:33 | ED.VIS.INJ ---
History of Present Illness Chief Complaint: Fall Informant: Patient Onset: Today, Hours Mechanism/Context: Blunt Injury, Fall Quality of Pain: Aching, Burning Location: Right ring finger and nose Current Severity: Mild Maximum Severity: Severe Worsened by: Using a powerhouse mechanic apprentice Relieved by: Last Associated Symptoms: Loss of function - Right ring finger. Patient states the finger was deformed and he straightened it out.. Negative for: Parasthesias, Weakness, Inability to ambulate, Loss of consciousness, Amnesia Narrative: Since a 64-year-old male with history of essential hypertension who presents with blunt facial trauma. Denies loss of conscious. Not amnestic. He is not on an anticoagulant or antiplatelet medicine. He denies double vision, blurred vision loss of vision. Denies numbness of his face or teeth. He denies neck pain. He denies paresthesia, anesthesia motor is present time of the injury. He denies cardiac respiratory symptoms. He denies GI symptoms. Tetanus is up-to-date. Tetanus Immunization: 5-10 years Prior similar symptoms: No Recent Illness/Hospitalization: No - Past Medical History (1) TIA (transient ischemic attack) Status: Acute (2) Hypertension Status: Chronic Past Medical History - Allergies and Home Meds Allergies/Adverse Reactions: Allergies No Known Allergies Allergy (Verified 05/26/20 19:14) Primary Care Physician: Valerio Babin III, MD [Primary Care Provider] - Prior records reviewed: Yes Surgical History: cholecystectomy Lives: Alone Smoking Status: Never smoker Alcohol: None Drugs: None - Family History Maternal Family History: Reports: Diabetes Paternal Family History: Reports: Heart Disease Review of Systems General: Denies: Fever, Malaise Eyes: Denies: Visual changes - bilaterally, Blurred Vision - bilaterally ENT: Reports: - - Denies epistaxis. He denies muffled hearing, ringing in his ears or drainage from his ears. Has difficulty breathing from his nose.. Denies: Rhinorrhea, Sore throat Cardiovascular: Denies: Chest pain, Palpitations Respiratory: Denies: Dyspnea, Dyspnea on exertion Gastrointestinal: Denies: Nausea, Vomiting Musculoskeletal: Reports: Swelling, Extremity Pain - Right ring finger. Denies: Myalgias, Arthralgias, Neck pain, Back pain Skin: Reports: Abrasions - Forehead and face. Denies: Rash, Abscess Neurological: Denies: Headache, Weakness, Parasthesia Hematologic: Denies: Easy bruising Allergy: Denies: Uticaria Physical Exam Vital Signs/Narrative: Vital Signs Temp Pulse Resp BP Pulse Ox 07/18/20 20:37 97.4 F L 94 18 121/92 H 98 General: Well nourished, Well developed Head: Normocephalic, Atraumatic, - - Clinical findings of basilar skull fracture. Eyes: Perrl, EOMI, - - No subconjunctival hemorrhage. There is no hypoesthesia the infraorbital nerve. There is no deformity to palpation infraorbital rim. There is no evidence of entrapment. ENT: TM's clear, No hemotympanum or drainage, No trauma, Nasal trauma, - - Nose is swollen and appears deformed. There is no obvious septal deviation.. Negative for: Nasal septal hematoma Neck: Nontender, Full ROM, - - Spine cleared per Nexus criteria.. Negative for: Spinal Tenderness, Paraspinal Tenderness Cardiovascular: Regular rate, Regular rhythm, No murmurs, Normal S1, Normal S2 Respiratory: No distress, CTA bilaterally, Chest nontender Abdomen: Soft, Nontender, Nondistended, Normal bowel sounds, - - No pain palpation of the pelvis. Back: Nontender. Negative for: CVA Tenderness - Right, CVA Tenderness - Left, Spinal Tenderness Extremeties: There is soft tissue swelling with discoloration of the right ring finger. There is laxity of the collateral ligament on the radial side. He is able to extend and the flexor digitorum superficialis and flexor digitorum profundus are intact. There is no subungual hematoma noted. Capillary refill is normal. Sensation is normal. Concern patient has a fracture or tear of his collateral ligament PIP joint. Skin: Normal color, No rash, Trauma - Previously described Neurological: Alert, Oriented x3, Cranial nerves II-XII grossly intact, Normal Strength, Normal Sensation, Normal Gait Psychological: Normal affect - Glascow Coma Scale Eye Opening: Spontaneous Motor: Obeys Commands Verbal: Oriented Coma Scale Total: 15 Diagnostic/Tx/Re-eval Chest X-Ray - ED: Read by ED Physician 3 view x-ray of the nose reveals no evidence of fracture or septal deviation 3 view x-ray of the hand reveals an avulsion fracture of the radial condyle middle phalanx. There is an avulsion type fracture and would explain the laxity of the medial collateral ligament. Patient was treated with aluminum splint and referred to Dr. Prince since he will need surgical repair to prevent swan-neck/boutonniere deformity and loss of use. - Medical Decision Making X-ray to evaluate for nasal fracture and x-ray of the hand to rule out fracture versus ligament injury right ring finger. ED Disposition - Plan for ED Patient: Disposition: Home or Assisted Living Diagnosis: Contusion of face, Facial abrasion, Closed fracture of middle phalanx of right ring finger Instructions: ED CONTUSION Face No Wake Up], ED Fx Hand Closed Referrals: Valerio Babin III, MD [Primary Care Provider] - Fortino Prince MD [STAFF PHYSICIAN] - As soon as possible
== END 2020-07-18 21:50 | disposition home or self-care (01) ==
PROVIDERS: Emergency Provider Emergency Medicine; PCP Family Medicine
DX: S62.624A Displaced fracture of middle phalanx of right ring finger, initial encounter for closed fracture (principal); S00.83XA Contusion of other part of head, initial encounter; S00.81XA Abrasion of other part of head, initial encounter; W19.XXXA Unspecified fall, initial encounter; Y93.9 Activity, unspecified; Y92.9 Unspecified place or not applicable; Y99.9 Unspecified external cause status; I10 Essential (primary) hypertension; Z86.73 Personal history of transient ischemic attack (TIA), and cerebral infarction without residual deficits
CPT/HCPCS: 70160; 73140; 99281; 99283

== ENCOUNTER 2020-10-18 20:28 | Emergency (ER) | payer MEDICARE, SELFPAY ==
[2020-10-18 20:29] VITALS: BP 153/105; PULSE 86; RESP 16; TEMP 36.8; O2SAT 100; BMI 30.5
--- NOTE | 2020-10-18 21:36 | ED.VIS.GEN ---
History of Present Illness Chief Complaint: Back Narrative: This patient is a 65-year-old male who presents with lower back pain. He was taking off his pants. He stated he felt something catch and had a sudden pain in his lower back. He also has some pain in his right groin. He was able to ambulate with assistance. The pain does not radiate further into his legs he has no numbness tingling or weakness. No abdominal pain. No urinary retention or fecal incontinence. No back surgeries. He otherwise has recently been well. Past Medical History - Allergies and Home Meds Allergies/Adverse Reactions: Allergies No Known Allergies Allergy (Verified 10/18/20 20:30) Primary Care Physician: Valerio Babin III, MD [Primary Care Provider] - Past Medical History: - - Hypertension Surgical History: cholecystectomy Smoking Status: Current every day smoker - Family History Paternal Family History: Reports: Heart Disease Maternal Family History: Reports: Diabetes Review of Systems All systems negative except as indicated General: Denies: Fever Eyes: Denies: Visual changes - bilaterally Cardiovascular: Denies: Chest pain Respiratory: Denies: Dyspnea Gastrointestinal: Denies: Abdominal pain Musculoskeletal: Reports: Back pain Skin: Denies: Rash Neurological: Denies: Headache Hematologic: Denies: Easy bruising Physical Exam Vital Signs/Narrative: Vital Signs Temp Pulse Resp BP Pulse Ox 10/18/20 20:29 98.3 F 86 16 153/105 H 100 Inital Vital Signs reviewed: Yes General: Well nourished Head: Normocephalic Eyes: EOMI ENT: Moist mucous membranes Neck: Supple Cardiovascular: Regular rate Respiratory: No distress Abdomen: Soft Back: - - Patient does have paraspinal lumbar tenderness which is worse on the right he does not have midline tenderness Extremities: - - Normal strength and sensation of the lower extremities no pain with passive range of motion of the hips he has 5 out of 5 dorsiflexion and plantarflexion he has brisk capillary refill and normal sensation Skin: Normal color Neurological: Alert Psychological: Normal affect Diagnostic/Tx/Re-eval - Medical Decision Making Patient was given naproxen and Flexeril here. 2 view x-ray of the lumbar spine was obtained. On my interpretation it shows loss of height of T12 possible compression fracture. 1 view pelvis x-ray was obtained. On my interpretation no obvious acute fracture. We will await formal radiology read prior to discharge. Patient signed out to the oncoming physician to follow-up on official report to make final disposition. ED Disposition - Plan for ED Patient: Referrals: Valerio Babin III, MD [Primary Care Provider] -
--- NOTE | 2020-10-18 21:52 | RAD_ITS ---
STUDY: X-RAY - PELVIS REASON FOR EXAM: Male, 65 years old. Right groin pain after bending over to put on pants. TECHNIQUE: One view of the pelvis was obtained. COMPARISON: CT abdomen and pelvis October 07, 2019. FINDINGS: There is a non-specific bowel gas pattern. Normal visualized soft tissue structures. Normal bilateral iliac wings, sacroiliac joints and visualized sacrum. Normal visualized bilateral superior and inferior pubic rami. Normal pubic symphysis. Normal ischial tuberosities. Normal visualized right femoral head. Normal right acetabulum. Normal right hip joint. Normal visualized left femoral head. Normal left acetabulum. Normal left hip joint. Mild degenerative changes of the lower lumbar spine which have remained stable. Multiple calcifications in the pelvis probably represent phleboliths. RAD/Pelvis 1 or 2 Views IMPRESSION: No acute findings in the pelvis. Mild degenerative changes of the lower lumbar spine. Electronically Signed: Rodrick Mistry MD at 23:28 EST , Service support ,
--- NOTE | 2020-10-18 21:52 | RAD_ITS ---
STUDY: X-RAY - LUMBAR SPINE REASON FOR EXAM: Male, 65 years old. Back pain, right-sided groin pain. TECHNIQUE: 2 view(s) of the lumbar spine were obtained. COMPARISON: CT abdomen and pelvis October 07, 2019. FINDINGS: Normal lumbar lordosis. There is no substantial scoliosis. There is a normal alignment of the vertebrae. Normal vertebral bodies. Multilevel disc space narrowing with small marginal osteophytes without significant change. L5-S1 is normal. The soft tissue structures are unremarkable. Calcifications in the pelvis likely representing incidental phleboliths. RAD/Lumbar Spine 2 or 3 Views IMPRESSION: Stable multilevel degenerative changes of the lumbar spine. Electronically Signed: Rodrick Mistry MD at 23:32 EST , Service support ,
[2020-10-18] MEDS: cycloBENZAPRine HCl 10 MG Tablet PO (22:02)
[2020-10-18] MEDS: Naproxen 500 MG Tablet PO (22:02)
--- NOTE | 2020-10-18 23:37 | ED.DEP ---
ED Disposition - Plan for ED Patient: Disposition: Home or Assisted Living Instructions: ED Back Pain (Acute or Chronic) Prescriptions: traMADol [Ultram] 50 mg PO Q4H PRN PRN 3 Days #8 tab PRN Reason: Pain Prescription Printed Referrals: Valerio Babin III, MD [Primary Care Provider] -
[2020-10-18 23:46] VITALS: BP 150/94; PULSE 77; RESP 16; O2SAT 100
== END 2020-10-18 23:49 | disposition home or self-care (01) ==
PROVIDERS: Emergency Provider Emergency Medicine; PCP Family Medicine
DX: M54.5 Low back pain (principal); I10 Essential (primary) hypertension; F17.200 Nicotine dependence, unspecified, uncomplicated
CPT/HCPCS: 72100; 72170; 99283

== ENCOUNTER 2021-02-14 12:30 | Outpatient (RCR) | payer MEDICARE, SELFPAY ==
--- NOTE | 2020-08-25 16:01 | HP.OTEVAL_ITS ---
Patient's Visit Information CHEKO COLEMAN is a 64 year old M, referred to Occupational Therapy by Dr. Constance Cardenas MD, with a diagnosis of Right RF fracture of Middle phalanx. Date of Evaluation: 08/22/20 Occupational Therapist: Alexia Kenney, OTR/L, CHT - Subjective This 64 year old male was seen for OT eval with dx of right finger fx.pt had fall 2019. pt states he went to [facility]- Aug.09 was sx and has soft sx splint off and orthosis diana. pt arrives with orthosis on right hand no need of adj. pt states he is limited with all ADLs and IADLS at this time. He would like to return to PLOF. - Pain right hand 0 Pain Intensity Range: 1, 4 - ROM MP: right IF 50, MF 50, RF 35, LF 20 PIP: Right IF 70, MF 60, RF 65, LF 45 DIP: Right IF 45, MF 35, RF, 15, LF 25 ROM Comments: pt currently demo limited ROM of all digits increasing need of assist with ADLs. left hand demo the ability to form full comoposite fist - Strength Strength Comments: will test later date - Edema PIP: right MF 8 left MF 7.0 - Sensation Sensation Comments: denies - Quick DASH-Disab of Arm,Shoulder& Hand Quick DASH Score: 78.3325 - Goals Goal:: will initiate goal when pt cleared Goal:: Pt will demo a increase in the ability to form a composite fist to increase his ind. with ADls and IADLs tasks. Pt will demo right PIP flex at 85* to increase pts functional use of right hand with ADLs and IADLs Goal:: pt will demo understanding of edema mtg by end of 2nd session Goal:: pt will demo understanding of scar mtg by end of 2nd session to decrease risk of scar adhesions. Goal:: pt will demo understanding of orthosis use, skin care and precautions and notify therapist to allow for adj. by end of 1st session. - Rehabilitation General Assessment: Pt currently 13 days s/p open reduction interanl fixation of right RF intraarticular fracture with repair of collateral ligament. Pt limited with use of his right hand for ADls and IADLs and would benefit from skilled OT services 1-2x week for 6 weeks to return pt to PLOF. Dr. parikh has cleared pt initiate PIP flexion of right RF. NO EXTENSION, NO ULNAR DEVIATION AT PIP OF RF. Therapy will progress pt as able and request of services. Rehabilitation Potential: Good - Anticipated Interventions A/AAROM/PROM, Strengthening, Edema Control, Triggerpoint Release, Desensitization, Sensory Retraining, Modalities, Orthoses, Joint Protection/Energy Conservation, Ergonomic Education - Visit Plan Frequency: 1-2x /Week General Plan: Oder allowing to start flexion. NO EXTENSION . NO UNLANR DEVIATION AT PIUP OF RF. TEXT: Thank you for the opportunity to evaluate your patient. For Medicare and Medicare HMO plans, please review the plan of care and approve it. It will need to be FAXED BACK to us at [phone] for Medicare purposes. Please let me know if there are questions or concerns regarding this plan of care. Physician Signature: Date:
--- NOTE | 2020-08-29 15:07 | HP.OTREVAL ---
Dr. Constance Cardenas MD, It has been my pleasure to treat CHEKO COLEMAN over the last 3 visits for Right RF fracture of Middle phalanx. Please see the progress note below for an update on the occupational therapy plan of care! Subjective: pt arrives states he is feeling well- denies pain- reports he is preforming his ROM and edema control - ready to have pins out Objective/Function: right RF PIP 75 flexion. DIP 30 flexion. pt is making gains with ROM - orthosis is fitting pt denies needing adj- therapist ed. on strapping behind PIP (proximal) pt demo understanding Plan Frequency: 1-2x /Week Plan: cont POC as indicates Goals - Goals Patient Goals: Regain Mobility, Use Hand/Wrist/Arm Normally Again Goal:: will initiate goal when pt cleared Goal:: Pt will demo a increase in the ability to form a composite fist to increase his ind. with ADls and IADLs tasks. Pt will demo right PIP flex at 85* to increase pts functional use of right hand with ADLs and IADLs Goal:: pt will demo understanding of edema mtg by end of 2nd session Goal:: pt will demo understanding of scar mtg by end of 2nd session to decrease risk of scar adhesions. Goal:: pt will demo understanding of orthosis use, skin care and precautions and notify therapist to allow for adj. by end of 1st session. Anticipated Interventions Anticipated Interventions: A/AAROM/PROM, Strengthening, Edema Control, Triggerpoint Release, Desensitization, Sensory Retraining, Modalities, Orthoses, Joint Protection/Energy Conservation, Ergonomic Education Please do not hesitate to contact me at [phone] by phone or if you have questions or concerns regarding this new plan of care! Sincerely, Alexia Kenney, OTR/L, CHT
--- NOTE | 2020-08-29 15:09 | HP.OTREVAL ---
Dr. Constance Cardenas MD, It has been my pleasure to treat CHEKO COLEMAN over the last 3 visits for Right RF fracture of Middle phalanx. Please see the progress note below for an update on the occupational therapy plan of care! Subjective: pt arrives states he is feeling well- denies pain- reports he is preforming his ROM and edema control - ready to have pins out Objective/Function: right RF PIP 75 flexion. DIP 30 flexion. pt is making gains with ROM - orthosis is fitting pt denies needing adj- therapist ed. on strapping behind PIP (proximal) pt demo understanding Plan Frequency: 1-2x /Week Plan: cont POC as indicates. Order allowing to start flexion. NO EXTENSION . NO UNLANR DEVIATION AT PIP OF RF. Goals - Goals Patient Goals: Regain Mobility, Use Hand/Wrist/Arm Normally Again Goal:: will initiate goal when pt cleared Goal:: Pt will demo a increase in the ability to form a composite fist to increase his ind. with ADls and IADLs tasks. Pt will demo right PIP flex at 85* to increase pts functional use of right hand with ADLs and IADLs Goal:: pt will demo understanding of edema mtg by end of 2nd session Goal:: pt will demo understanding of scar mtg by end of 2nd session to decrease risk of scar adhesions. Goal:: pt will demo understanding of orthosis use, skin care and precautions and notify therapist to allow for adj. by end of 1st session. Anticipated Interventions Anticipated Interventions: A/AAROM/PROM, Strengthening, Edema Control, Triggerpoint Release, Desensitization, Sensory Retraining, Modalities, Orthoses, Joint Protection/Energy Conservation, Ergonomic Education Please do not hesitate to contact me at [phone] by phone or if you have questions or concerns regarding this new plan of care! Sincerely, Alexia Kenney OTR/L, CHT
--- NOTE | 2020-09-19 14:57 | HP.OTREVAL ---
Dr. Constance Cardenas MD, It has been my pleasure to treat CHEKO COLEMAN over the last 9 visits for Right RF fracture of Middle phalanx. Please see the progress note below for an update on the occupational therapy plan of care! Subjective: Pt arrived early wearing splint, pt is 5 weeks 6 days , pt still struggling to tie shoes. and demo with limited composite fist and limited PIP ext. Objective/Function: Right. RF PIP 87*. Ribht RF Ext -34*. pt making gains- min. to no pain and using toby straps daily with ex. Therapy will cont to work on gaining ROM-. Do you feel a relative motion orthosis could be used to gain more ext. at this time? please advise Plan Frequency: 1-2x /Week Plan: cont POC, toby tape Goals - Goals Patient Goals: Regain Mobility, Use Hand/Wrist/Arm Normally Again Goal:: will initiate goal when pt cleared Goal:: Pt will demo a increase in the ability to form a composite fist to increase his ind. with ADls and IADLs tasks. Pt will demo right PIP flex at 85* to increase pts functional use of right hand with ADLs and IADLs Goal:: pt will demo understanding of edema mtg by end of 2nd session Goal:: pt will demo understanding of scar mtg by end of 2nd session to decrease risk of scar adhesions. Goal:: pt will demo understanding of orthosis use, skin care and precautions and notify therapist to allow for adj. by end of 1st session. Anticipated Interventions Anticipated Interventions: A/AAROM/PROM, Strengthening, Edema Control, Triggerpoint Release, Desensitization, Sensory Retraining, Modalities, Orthoses, Joint Protection/Energy Conservation, Ergonomic Education Please do not hesitate to contact me at [phone] by phone or if you have questions or concerns regarding this new plan of care! Sincerely, Alexia Kenney, OTR/L, CHT
--- NOTE | 2020-10-24 10:40 | HP.OTREVAL ---
Dr. Constance Cardenas MD, It has been my pleasure to treat CHEKO COLEMAN over the last 18 visits for Right RF fracture of Middle phalanx. Please see the progress note below for an update on the occupational therapy plan of care! Subjective: pt arrives to session- had a fall last week and went to hospital with back pain- pt was unable to perform hand ex or keep serial cast on- during this time. Objective/Function: Right RF PIP extension -52 before treatment week prior to fall pt was at -30/ pt not making sig. gains. pt demo with all digits limited with PIP ext and limited composite fist- possible to do fall pt has had set-back in progress- pt's uninvoled fingers are becoming stiff due to MF being in serial cast- question if should d/c serial cast as this is limiting pts from using his hand with ADls and IADLs. please advise- Plan Frequency: 1-2x /Week Plan: cont POC to gain incrase in ROM-. PB/ PROM blocking, reverese blocking serival casting Goals - Goals Patient Goals: Regain Mobility, Use Hand/Wrist/Arm Normally Again Goal:: will initiate goal when pt cleared Goal:: Pt will demo a increase in the ability to form a composite fist to increase his ind. with ADls and IADLs tasks. Pt will demo right PIP flex at 85* to increase pts functional use of right hand with ADLs and IADLs Goal:: pt will demo understanding of edema mtg by end of 2nd session Goal:: pt will demo understanding of scar mtg by end of 2nd session to decrease risk of scar adhesions. Goal:: pt will demo understanding of orthosis use, skin care and precautions and notify therapist to allow for adj. by end of 1st session. Anticipated Interventions Anticipated Interventions: A/AAROM/PROM, Strengthening, Edema Control, Triggerpoint Release, Desensitization, Sensory Retraining, Modalities, Orthoses, Joint Protection/Energy Conservation, Ergonomic Education Please do not hesitate to contact me at [phone] by phone or if you have questions or concerns regarding this new plan of care! Sincerely, Alexia Kenney, OTR/L, CHT
--- NOTE | 2020-11-18 12:19 | HP.PTEVAL_ITS ---
Patient's Visit Information CHEKO COLEMAN is a 65 year old M referred to Physical Therapy by Dr. Constance Cardenas MD with a diagnosis of chronic R knee pain. Date of Evaluation: 11/18/20 Physical Therapist: ELIAN Haider - Visit Plan Frequency: 2-3x /Week Duration: 4-6 Months Plan: 2-3X/ week for 12 visits for R LE stretching (especially gastroc), R hip, knee and ankle strengthening, gait training, balance activities, with HEP - Subjective Pt was in the ER 11-18-20 for his back pain. His R knee buckled and went to the ground the day after. Pt feels that there is something wrong with his R knee. He feels that he drags his R leg when he walks. His girfriend tells him that he walks with his leg swinging outward. He is also having rouble with is R arm as well. thinks that there might be a pinched nerve in his neck but not doing something about it for his R arm. Occ he has to carry a cane with him. He reports that pain is not the problem, it is weakness. Stairs: going up and down the steps he holds onto the handrail and goes one step at a time. He fell and hit his head in Jul and broke his finger and he feels that he has gotten worse since them. He thinks that they may have missed something. They thought he had a stroke in May but he did not. He wants to do some exercises cause he is getting weaker. - Pain R knee pain Pain Intensity (Out of 10): 0 Pain Intensity Range: 7 Comment: only occ - Objective Gait: walks with asteppage gait on the R and decreased R toe clearence (decreased DF),. Patellar DTR's B 3+/3. Achilees DTR's B 3+/3. Tight B HS and gastroc complex B. R knee AROM: flexion 105 degrees, -5 degrees from full extension. L knee AROM: flexion 115 degrees and -5 degrees from full extension. R ankle DF -15 degrees from neutral. L ankle DF to neutral. Pt is able to to do heel and toe raises with UE support but does not have even close to full DF on the R. R LE MMT: hip flexion 3+/5, knee flex 4-/5, knee ext 3-/4, Hip abd 4-/5, DF 3-/4, INV/EV 4-/5. FGA 12. Stairs: first time pt put R foot on the step to ascend the stair with a railing his R knee buckled on him and he caught himself with his hip against the railing and using his arm. He was then able to ascend recip with 2 hand rails... heavy on the arms. - Balance Scores Functional Gait Assessment Score: 12 % Disability: 60.0000 - Goals Goal 1:: I HEP Goal Time Frame: 4-6 Weeks Goal 2:: Increase FGA by 5 points to decrease fall risk Goal Time Frame: 4-6 Weeks Goal 3:: Increase R LE strength by 1/2 muscle grade in hip, knee and ankle (at time of eval:R LE MMT: hip flexion 3+/5, knee flex 4-/5, knee ext 3-/4, Hip abd 4-/5, DF 3-/4, INV/EV 4-/5)/ Goal Time Frame: 4-6 Weeks Goal 4:: Increase R gastroc/DF AROM to neutral to equal that of the L Goal Time Frame: 4-6 Weeks - Rehabilitation Potential Rehabilitation Potential: Good - Anticipated Interventions Patient/Client Instruction: Educate patient on: Condition, Plan of Care For the Purpose of:: To decrease pain, To increase ROM, To improve nutrient delivery to tissue, To improve muscle performance and motor function, To improve ability to perform ADL's, To increase tolerance to activity/condition/position, To improve performance and independence with ADL's, To decrease level of supervision to perform tasks, To improve ability of physical actions for home/community/work/leisure, To improve gait and locomotor functions, To improve health of tissue, To decrease soft tissue restriction, To increase flexibility/ROM, To improve endurance, To improve balance, To improve safety with gait Therapeutic Exercise to Include: Strength training, Endurance training, Balance training, Flexibilty training, Gait and locomotor training, Neuromotor development, Passive ROM, Active ROM, Dynamic Lumbar Stabilization For the Purpose of:: To decrease pain, To decrease swelling/inflammation, To i ncrease ROM, To improve nutrient delivery to tissue, To increase oxygenation perfusion, To improve muscle performance and motor function, To improve ability to perform ADL's, To increase tolerance to activity/condition/position, To improve performance and independence with ADL's, To decrease level of supervision to perform tasks, To improve ability of physical actions for home/community/work/leisure, To improve gait and locomotor functions, To improve health of tissue, To decrease soft tissue restriction, To increase flexibility/ROM, To improve endurance, To improve balance, To improve safety with gait Functional Training to Include: Gait training For the Purpose of:: To increase ROM, To improve muscle performance and motor function, To improve ability to perform ADL's, To increase tolerance to activity/condition/position, To improve performance and independence with ADL's, To decrease level of supervision to perform tasks, To improve ability of physical actions for home/community/work/leisure, To improve gait and locomotor functions, To improve health of tissue, To decrease soft tissue restriction, To increase flexibility/ROM, To improve endurance, To improve balance, To improve safety with gait Manual Therapy Techniques to Include: Passive ROM For the Purpose of:: To increase ROM, To improve safety with gait Thank you for the opportunity to evaluate your patient. For Medicare and Medicare HMO plans, please review the plan of care and approve it. It will need to be FAXED BACK to us at [phone] for Medicare purposes. For Medicare only, by signing this I certify the plan of care. Please let me know if there are questions or concerns regarding this plan of care. Physician Signature: Date:
--- NOTE | 2021-02-14 13:07 | HP.PTDCSUM ---
It has been my pleasure to treat CHEKO COLEMAN referred by Dr. Constance Cardenas MD, with the diagnosis of chronic R knee pain for a total of 5 visit(s). Discharge Date: 02/14/21 Please see the following information for a summary of their discharge status. Subjective: Pt has to have surgery cause he has several pinched nerves in his neck that is pinching his spinal cord causing him to walk the way he is. He fell last week in the backyard and his sisters boyfriend picked him up. He has to have surgery on February 27 is his spine surgery and he might have to stay a day or two. He has days where he is able to walk ok and others he can not. He struggles with eating now with his hands. R knee pain Pain Intensity (Out of 10): 0 % Improvement: 50 Objective/Function: stairs: one railing and a cane recip going up and 2 handrails going down the steps. Gait with a rolling walker 250 feet... for which patient was much steadier and admitted that it was much easier for him to walk. Gait with a straight cane: very unsteady, veering, WBOS, running into mcginnis and does not have a good cane sequence Goal 1:: I HEP Goal Progress: Goal Met Goal 2:: Increase FGA by 5 points to decrease fall risk Goal Progress: Not Progressing Goal 3:: Increase R LE strength by 1/2 muscle grade in hip, knee and ankle (at time of eval:R LE MMT: hip flexion 3+/5, knee flex 4-/5, knee ext 3-/4, Hip abd 4-/5, DF 3-/4, INV/EV 4-/5)/ Goal Progress: Not Progressing Goal 4:: Increase R gastroc/DF AROM to neutral to equal that of the L Goal Progress: Not Progressing Plan: DC PT as pt will be having surgery on his c-spine. Discharge Comments: DC PT at this time until after surgery If there are questions or concerns regarding this patient's physical therapy, please feel free to call me at [phone]. Thank you for the referral of this patient. Sincerely, Melissa Ibarra, MPT
== END 2021-02-14 19:00 | disposition home or self-care (01) ==
LOC: PT 12:30
PROVIDERS: PCP Family Medicine; Referring Provider Orthopaedic Surgery Hand Surgery; Visit Provider Orthopaedic Surgery Hand Surgery
DX: S62.624D Displaced fracture of middle phalanx of right ring finger, subsequent encounter for fracture with routine healing (principal)
CPT/HCPCS: 97110; 97140; 97162; 97166; 97530; 97760

== ENCOUNTER → 2021-03-13 05:00 | Outpatient (REF) | payer MEDICARE, MEDICAID, SELFPAY ==
[2021-03-13 07:10] LABS: Hematocrit 29.7 % (40-54); Hemoglobin 10.1 g/dL (13.0-16.5); Mean Corpuscular Hgb 31.3 pg (27.0-32.0); Mean Platelet Vol. 9.8 fl (6.2-12.0); Platelet Count 217 K/mm3 (150-450); RBC Distribution Width CV 12.7 % (11.6-14.6); RBC Distribution Width SD 42.5 fl (35.1-43.9); Red Blood Count 3.23 M/mm3 (4.6-6.2); White Blood Count 7.5 K/mm3 (4.4-11.0)
[2021-03-13 07:16] LABS: Anion Gap 8 (5-15); BUN 18 mg/dL (7-18); Calcium,Total 8.7 mg/dL (8.5-10.1); Chloride 103 mmol/L (98-107); Creatinine, Serum 1.06 mg/dL (0.70-1.30); EST Glomerular Filtration Rate 74 mL/min (>60); Est Glom Filt Rate - Afr Amer 90 mL/min (>60); Glucose 98 mg/dL (74-106); Potassium 3.7 mmol/L (3.5-5.1); Sodium Level 139 mmol/L (136-145)
== END ==
LOC: OLS.WHLTCC 05:00
PROVIDERS: PCP Family Medicine; Visit Provider Family Medicine
DX: N18.30 Chronic kidney disease, stage 3 unspecified (principal); R19.7 Diarrhea, unspecified; R73.01 Impaired fasting glucose; T40.2X1A Poisoning by other opioids, accidental (unintentional), initial encounter; Z79.82 Long term (current) use of aspirin; Z29.8 Encounter for other specified prophylactic measures
CPT/HCPCS: 36415; 80048; 85027

== ENCOUNTER 2021-04-06 16:59 | Emergency (ER) | payer MEDICARE, SELFPAY ==
[2021-04-06 17:00] VITALS: BP 140/85; PULSE 88; RESP 14; TEMP 36.6; O2SAT 96; BMI 30.2
--- NOTE | 2021-04-06 18:16 | CT_ITS ---
We are attempting to reach an attending provider to discuss findings. An addendum with communication details will be sent when the communication is complete. HISTORY: Trauma, fall EXAMINATION: CT Spine Cervical W/O Contrast Injection TECHNIQUE: Helically acquired images were obtained of the cervical spine. 2D reformatted images were reviewed. A radiation dose optimization technique was used for this scan. IV Contrast dosage and agent: None. COMPARISON: MR cervical spine 05/27/20 FINDINGS: VERTEBRAE: Interval surgical change with left laminectomy and surgical hardware fixation C3-C6. Fractures of the right C4, C5 and C6 laminae anteriorly, no evidence of healing bone formation. No discrete lytic or blastic abnormality observed. Normal alignment. Normal craniocervical junction and cervicothoracic junction. DISCS and SPINAL CANAL: Degenerative discogenic changes are noted. No critical stenosis. NECK SOFT TISSUES: No prevertebral soft tissue swelling. LUNG APICES: Clear. CT/Spine Cervical without Contras IMPRESSION: Interval surgical laminectomies on the left with surgical hardware fixation C3-C6. Fractures of the right laminae at C4-C6, no evidence of early healing. Individualized dose optimization techniques were used for this CT. at 1911 Reported and signed by: Rodrick Tellez MD Electronically Signed: Rodrick Tellez MD at 19:09 EDT Tel , Service support ,
--- NOTE | 2021-04-06 18:16 | CT_ITS ---
HISTORY: Trauma, fall TECHNIQUE: Multiple axial images were obtained of the brain without intravenous contrast. A radiation dose optimization technique was used for this scan. IV Contrast dosage and agent: None. COMPARISON: Brain MRI 05/27/20 FINDINGS: # of images incl. paperwork: [phone] PARANASAL SINUSES AND MASTOID AIR CELLS: Clear. INTRACRANIAL HEMORRHAGE: None. BRAIN PARENCHYMA: No CT evidence of stroke. No intracranial masses. Small focus of left posterior occipital encephalomalacia subjacent to left occipital jessee hole. There is preservation of the montilla/white matter interface. Posterior fossa structures are unremarkable. CSF SPACES: Appropriate for age. There is no hydrocephalus. MASS EFFECT: None. CALVARIUM: No acute fracture. CT/Brain/Head without Contrast IMPRESSION: No acute intracranial findings. Individualized dose optimization techniques were used for this CT. at 1855 Reported and signed by: Rodrick Tellez MD Electronically Signed: Rodrick Tellez MD at 18:53 EDT Tel , Service support ,
--- NOTE | 2021-04-06 18:17 | ED.VIS.FALL ---
HPI HPI - Fall History of Present Illness Chief Complaint: Fall Informant: patient Occured/Mechanism Occurred: Today Pain/Injury Location: Head Current Severity: Mild Maximum Severity: Mild Narrative Narrative: Patient presents secondary to fall with head injury. Patient had neck surgery 5 weeks ago at the [facility]. Patient states he has chronic right-sided weakness secondary to a pinched nerve which was why he had the surgery. He was on the commode but his gripper socks slipped and he fell striking his head against the tub. He denies loss of consciousness. He is on baby aspirin but no other anticoagulants. He denies neck pain. [facility] Medical History (Updated 04/06/21 @ 19:[address] Melida Gutierrez MD) Hypertension TIA (transient ischemic attack) Home Medications Fish Oil 1 ea PO DAILY 09/17/13 [History Last Taken 05/26/20 08:00] Therems-M 1 tab PO DAILY 09/17/13 [History Last Taken 05/26/20 08:00] apple cider vinegar 600 mg PO DAILY 05/27/20 [History Last Taken 05/26/20 08:00] aspirin 81 mg PO DAILY@0800 #0 tab.chew 05/27/20 [Rx Last Taken Unknown] lisinopril-hydrochlorothiazide 1 ea PO DAILY 10/18/20 [History Last Taken Unknown] hydroxyzine HCl 50 mg PO QHS 04/06/21 [History Last Taken Unknown] Allergy/AdvReac Type Severity Reaction Status Date / Time No Known Allergies Allergy Verified 04/06/21 17:03 Surgical History H/O cervical spine surgery Social History Smoking Status: Former smoker ROS ROS ED Constitutional Constitutional ED: Denies chills or fever(s) Eyes Eyes: Denies change in vision ENT ENT ED: Denies sore throat Cardiovascular Cardiovascular: Denies chest pain Respiratory/Chest Respiratory/Chest: Denies cough or dyspnea Gastrointestinal Gastrointestinal: Denies abdominal pain, diarrhea, nausea or vomiting Genitourinary Genitourinary ED: Denies dysuria Musculoskeletal Musculoskeletal: Denies back pain Integumentary Denies rash Neurologic Neurologic: Denies headache(s) or weakness Psychiatric Psychiatric: Denies anxiety or depression Endocrine Endocrinology: Denies polydipsia or polyuria Allergic/Immunologic Allergic/Immunologic ED: Denies urticaria EXAM Physical Exam Const Vital Signs: 04/06/21 17:00 04/06/21 18:46 Temperature 97.8 F Temperature Source Temporal Pulse Rate 88 Respiratory Rate 14 Respiratory Effort Normal Non-Labored Respiratory Depth Normal Respiratory Pattern Normal Blood Pressure 140/85 H Blood Pressure Mean 103 Pulse Ox 96 Oxygen Delivery Method Room Air Room Air Positive well nourished and well developed General Appearance ED: well developed HEENT Reports normocephalic HEENT Narrative: Small hematoma just above the right eyebrow. No bony tenderness. Extraocular movements fully intact. Eyes PERRL and EOMs intact bilaterally Neck full ROM Neck Narrative: No reproducible C-spine tenderness. Well-healed surgical incision. Chest Wall inspection of chest normal and palpation of chest normal Resp normal respiratory effort and clear to auscultation bilaterally Cardio regular rate and regular rhythm GI non-tender Palpation: soft Extremity normal to inspection Neuro oriented x3 Sensorium / Orientation: alert Skin Skin Narrative: Hematoma as above MDM MDM MDM Narrative Medical decision making narrative: CT scan of the head and C-spine were ordered. Radiography Diagnostic Testing: Radiology Impression Brain CT 04/06/21 18:16 IMPRESSION: No acute intracranial findings. Individualized dose optimization techniques were used for this CT. at 1855 Reported and signed by: Rodrick Tellez MD Electronically Signed: Rodrick Tellez MD at 18:53 EDT Tel , Service support , Cervical Spine CT 04/06/21 18:16 IMPRESSION: Interval surgical laminectomies on the left with surgical hardware fixation C3-C6. Fractures of the right laminae at C4-C6, no evidence of early healing. Individualized dose optimization techniques were used for this CT. at 1911 Reported and signed by: Rodrick Tellez MD Electronically Signed: Rodrick Tellez MD at 19:09 EDT Tel , Service support , Treatment and Re-Evaluation Comments:: CT scans are reviewed. I was able to visualize the operative report from [facility]. Air drill was used to cut through the lamina at C4-C6 where they are seeing the current fractures. This is all postoperative from the procedure. At this time patient's exam is normal and he will be discharged home. Discharge Plan Triage Chief Complaint: Fall ED Provider: Melida Gutierrez Dx/Rx/DC Orders Clinical Impression: Closed head injury Instructions: ED Head Injury (Adult) Prescriptions: No Action Therems-M 1 TABLET tablet 1 tab PO DAILY RF: 0 Fish Oil 1 EACH capsule 1 ea PO DAILY RF: 0 apple cider vinegar 600 MG capsule 600 mg PO DAILY RF: 0 aspirin 81 MG tablet,chewable 81 mg PO DAILY@0800 Qty: 0 RF: 0 lisinopril-hydrochlorothiazide 1 EACH tablet 1 ea PO DAILY RF: 0 hydroxyzine HCl 50 mg tablet 50 mg PO QHS RF: 0 Primary Care Provider: Aldo Nielsen NP Referrals: Aldo Nielsen NP, [employer] [Primary Care Provider] - 1 Week if not improving Disposition Disposition: Home, Self Care
[2021-04-06 20:02] VITALS: BP 136/68; PULSE 78; RESP 18; O2SAT 98
== END 2021-04-06 20:02 | disposition home or self-care (01) ==
PROVIDERS: Emergency Provider Emergency Medicine; PCP Nurse Practitioner Family
DX: S09.90XA Unspecified injury of head, initial encounter (principal); I10 Essential (primary) hypertension; Z79.82 Long term (current) use of aspirin; Z87.891 Personal history of nicotine dependence; Z79.899 Other long term (current) drug therapy; W19.XXXA Unspecified fall, initial encounter
CPT/HCPCS: 70450; 72125; 99282

== ENCOUNTER 2021-05-24 11:00 | Outpatient (RCR) | payer MEDICARE, SELFPAY ==
--- NOTE | 2021-04-21 10:10 | HP.OTEVAL_ITS ---
Patient's Visit Information CHEKO COLEMAN is a 65 year old M, referred to Occupational Therapy by MELODY Chow, with a diagnosis of right hand pain. Date of Evaluation: 04/21/21 Occupational Therapist: Edith Núñez - Subjective Pt seen for initial occupational therapy evaluation for decreased functional use of his R hand and R hand pain. Pt had cervical spinal sx February 27, [address] [facility] then went to [facility] for 20 days for rehab, then returned home with home health therapy which ended 04/19/21. Pt had recent fall in bathroom. Pt lives with girl friend, 1 story house w/ basement, 4 steps to enter house 1 hand rail. AMB w/ WW. Pt requires assist w/ UB/LB dressing, toileting, bathing tasks, grooming, self feeding tasks. Pt states tub/shower w/ grab bar (prefers to stand, has shower stool). RTS w/ grab bar after fall in bathroom. Requires assist w/ IADL tasks. Since sx pt has demonstrated decreased strength and grasping skills of both his R and L hands. Prior to July independent with BADL's/IADLs, driving. Pt is R hand dominent. - Objective Pt demo increased fatigue to amb back to therapy area. He requires assist to get up/down from chairs. Pt demo decreased BUE strength, ROM and independence to grasp objects with his R hand. - ROM Shoulder: SHOULDER FLEXION R AROM 0'/30', R PROM 0/110', Elbow: R AROM -15'/115' R PROM -10/136', L AROM WFL Wrist: R AROM 0'/10', PROM 35'/50', L AROM 10'/50' ROM Comments: SHOULDER HOR ABDUCTION R AROM 0/20' R PROM 0/95 L AROM 0/75' PROM 0'/85'. Able to make light composite fist both hands - Strength Shoulder: R MMT 2-/5, L MMT 2-/5 Elbow: R MMT 3+/5, L MMT 3+/5 School Bus Driver/Custodian: R 0#, L 5# Lateral Pinch: R 0#, L 0# - Edema Other: no edema noted - Sensation Sensation Comments: when lying down will occassionally get numbness/tingling R digits 3,4,5. No numbness/tingling during evaluation. - Transfers Transfers: MIN to MOD assist to get up out of low chair. - Quick DASH-Disab of Arm,Shoulder& Hand Quick DASH Score: 72.7250 - Goals Goal:: Pt will progress w/ bilateral micro computer specialist strength by 15# to assist w/ BADL tasks by d/c from OT. Pt will progress w/ BUE strength to 4/5 to assist w/ functional transfers and BADL tasks by d/c from OT services. Goal:: Pt will progress w/ R shoulder AROM horizontal abd by 20' to assist w/ UB ADL tasks. Pt will progress w/ R wrist AROM flexion by 40' to assist w/ BADL tasks by d/c from OT. Goal:: Pt will be able to complete upper body dressing tasks set up level by d/c from OT. Pt will be able to complete toileting tasks [place] using adaptive techniques/equipment as needed by d/c from OT. Goal:: Pt will be educated on DME, compensatory strategies, adaptive techniques to assist w/ BADL/IADL tasks with good understanding and demo 100%x. Goal:: Pt will be educated on BUE HEP with good understanding and demo 100%x by d/c from OT services. - Rehabilitation General Assessment: Pt seen for initial occupational therapy evaluation for decreased functional use of his R hand and R hand pain. Pt had cervical spinal sx February 27, [address] [facility]. Pt demo decreased strength of both R and L UE with limited ROM. He demonstrates decreased independence with BADL tasks and ability to grasp objects with his R and L hand making it difficult to complete all BADL tasks independently. He would benefit from direct occupational therapy services to increase his BUE strength, ROM and independence with BADL tasks to return to PLOF 2-3x/wk x 4-6wks Rehabilitation Potential: Good - Anticipated Interventions A/AAROM/PROM, Strengthening, Massage, Triggerpoint Release, Modalities, Orthoses, Fine Motor Coord/Alcon, Neuro Reeducation, ADL Training, Education re assistive Equipment, Education re Diagnosis, Home Program - Visit Plan Frequency: 2-3x /Week Duration: 4-6 Weeks General Plan: Pt seen for initial occupational therapy evaluation for decreased functional use of his R hand and R hand pain. Pt had cervical spinal sx February 27, [address] [facility]. Pt demo decreased strength of both R and L UE with limited ROM. He demonstrates decreased independence with BADL tasks and ability to grasp objects with his R and L hand. He would benefit from direct occupational therapy services to increase his BUE strength, ROM and independence with BADL tasks to return to PLOF 2-3x/wk x 4-6wks TEXT: Thank you for the opportunity to evaluate your patient. For Medicare and Medicare HMO plans, please review the plan of care and approve it. It will need to be FAXED BACK to us at [phone] for Medicare purposes. Please let me know if there are questions or concerns regarding this plan of care. Physician Signature: Date:
--- NOTE | 2021-04-26 10:15 | HP.PTEVAL_ITS ---
Patient's Visit Information CHEKO COLEMAN is a 65 year old M referred to Physical Therapy by MELODY Chow with a diagnosis of RIGHT KNEE PAIN. Date of Evaluation: 04/26/21 Physical Therapist: Fortino Cooper, PT, Cert MDT, [facility] - Visit Plan Frequency: 2x /Week Duration: 6 Weeks Plan: S/P FUSION CERVICAL 8 WEEKS AGO. PT INTERVETIONS PROGRESSIVE GAIT TRAINING,BALANCE PROGRAM,ENDURANCE PROGRAN,PRE'S BLE AND FUNCTIONAL STRENGTHENING - Subjective This 65 y/o male presents to physical therapy with right knee pain. Patient had s/p cervical fusion 8 weeks ago at [facility] done by DR Martin . Patient had cervical spine diagnostics showed stenosis. Patient had prior physical before surgery due to falling and weakness in arms and legs. After [facility] at [facility]. Then [facility] up until 04/19/21. Patient had h/o falls prior to surgery and balance deficits. Patient had fall 3weeks ago feel in bathroom attempted to get of toilet. Patient has been using FWW prior to surgery and does have difficulty get up from chair with mod assist. Denies pain. Patient impairments with assist with ADL'S ,self hygiene with bathing ,dressing . Girlfriend assist with bathing and dressing and does all the cooking. Patient lives in 1 story home with basement 4steps to enter with one rail. DME : fww ,raised toilet, lift cushion ,grab bars in tub. Patient condition of weakness in leg right > left affects balance ,gait and ADL'S. Patient condition affects QOL. SOCIAL: . VOCATION: disablity - Objective POSTURE: rounded shoulders head forward mild forward trunk. NEURO: denies paresthesia/tingling , reflexes L3-4,L4-5,L5-S1 2/3 ,C5-6-7. PALAPTION: tender UT. GAIT: slow gina, drags right leg , decrease hip/knee flexion and heel strike right ankle poor stance time ,mild forward posture. TRANFERS: sit-stand with mod assist cues for hand placement. BALANCE: fair with FWW. FLEXABLITY: hams mod tight. MMT: quads/hams 3+/5 right, left 4-/5 hip flexion 3/5,hip abduction 3-/5.ankel 3-/5. AROM SHOULDER: shoulder right 40 degrees, left 95 degrees. BED MOBLITY: MIN A - Balance/Special Test Scores CATSIB Score (Max score 120 seconds): 5 - Goals Goal 1:: I with HEP Goal Time Frame: 4-6 Weeks Goal 2:: Improve quality of gait with fww community distances Goal Time Frame: 4-6 Weeks Goal 3:: Improve dynamic balance with fww fair+ Goal Time Frame: 4-6 Weeks Goal 4:: Patient to improve BLE strength to 4/5 quads/hams and hip 3+/5 to improve gait Goal Time Frame: 4-6 Weeks Goal 5:: Patient to improve CATSIB by 10 points or > to improve balance Goal Time Frame: 4-6 Weeks Goal 6:: Patient to improve LFES score by 5-10 points or >to improve function and QOL - Rehabilitation Potential Physical Therapy Diagnosis: Patient underwent cervical fusion 8 weeks ago with weakness BLE R>L ,decrease gait, balance and transfers causes deficits with ADLS and function Rehabilitation Potential: Good - Anticipated Interventions Patient/Client Instruction: Educate patient on: Condition, Plan of Care For the Purpose of:: To decrease pain, To improve muscle performance and motor function, To improve ability to perform ADL's, To increase tolerance to activity/condition/position, To improve performance and independence with ADL's, To improve ability of physical actions for home/community/work/leisure, To improve health of tissue, To decrease soft tissue restriction, To increase flexibility/ROM, To improve endurance, To improve balance, To improve safety with gait, To assume or resume ADL's, To improve safety, To improve ability to perform tasks related to life management, To improve tolerance to ADL's Therapeutic Exercise to Include: Strength training, Endurance training, Balance training, Flexibilty training, Gait and locomotor training, Active ROM Comment: BLE QUADS/HAMS/HIP For the Purpose of:: To decrease pain, To improve muscle performance and motor function, To improve ability to perform ADL's, To increase tolerance to activity/condition/position, To improve performance and independence with ADL's, To improve ability of physical actions for home/community/work/leisure, To improve gait and locomotor functions, To decrease soft tissue restriction, To increase flexibility/ROM, To improve endurance, To improve balance, To improve safety with gait, To assume or resume ADL's, To improve ability to perform tasks related to life management, To improve tolerance to ADL's Thank you for the opportunity to evaluate your patient. For Medicare and Medicare HMO plans, please review the plan of care and approve it. It will need to be FAXED BACK to us at [phone] for Medicare purposes. For Medicare only, by signing this I certify the plan of care. Please let me know if there are questions or concerns regarding this plan of care. Physician Signature: Date:
--- NOTE | 2021-04-26 12:41 | HP.PTEVAL_ITS ---
Patient's Visit Information CHEKO COLEMAN is a 65 year old M referred to Physical Therapy by MELODY Chow with a diagnosis of RIGHT KNEE PAIN. Date of Evaluation: 04/26/21 Physical Therapist: Fortino Cooper, PT, Cert MDT, [facility] - Visit Plan Frequency: 2x /Week Duration: 6 Weeks Plan: S/P FUSION CERVICAL 8 WEEKS AGO. PT INTERVETIONS PROGRESSIVE GAIT TRAINING,BALANCE PROGRAM,ENDURANCE PROGRAN,PRE'S BLE AND FUNCTIONAL STRENGTHENING - Subjective This 65 y/o male presents to physical therapy with right knee pain. Patient had s/p cervical fusion 8 weeks ago at [facility] done by DR Martin . Patient had cervical spine diagnostics showed stenosis. Patient had prior physical before surgery due to falling and weakness in arms and legs. After [facility] ended at March 22. Then [facility] up until 04/19/21. Patient had h/o falls prior to surgery and balance deficits. Patient had fall 3weeks ago feel in bathroom attempted to get of toilet. Patient has been using FWW prior to surgery and does have difficulty get up from chair with mod assist. Denies pain. Patient impairments with assist with ADL'S ,self hygiene with bathing ,dressing . Girlfriend assist with bathing and dressing and does all the cooking. Patient lives in 1 story home with basement 4steps to enter with one rail. DME : fww ,raised toilet, lift cushion ,grab bars in tub. Patient condition of weakness in leg right > left affects balance ,gait and ADL'S. Patient condition affects QOL. SOCIAL: . VOCATION: disablity - Objective POSTURE: rounded shoulders head forward mild forward trunk. NEURO: denies paresthesia/tingling , reflexes L3-4,L4-5,L5-S1 2/3 ,C5-6-7. PALAPTION: tender UT. GAIT: slow gina, drags right leg , decrease hip/knee flexion and heel strike right ankle poor stance time ,mild forward posture. TRANFERS: sit-stand with mod assist cues for hand placement. BALANCE: fair with FWW. FLEXABLITY: hams mod tight. MMT: quads/hams 3+/5 right, left 4-/5 hip flexion 3/5,hip abduction 3-/5.ankel 3-/5. AROM SHOULDER: shoulder right 40 degrees, left 95 degrees. BED MOBLITY: MIN A - Balance/Special Test Scores CATSIB Score (Max score 120 seconds): 5 - Goals Goal 1:: I with HEP Goal Time Frame: 4-6 Weeks Goal 2:: Improve quality of gait with fww community distances Goal Time Frame: 4-6 Weeks Goal 3:: Improve dynamic balance with fww fair+ Goal Time Frame: 4-6 Weeks Goal 4:: Patient to improve BLE strength to 4/5 quads/hams and hip 3+/5 to improve to improve transfers with mod I Goal Time Frame: 4-6 Weeks Goal 5:: Patient to improve CATSIB by 10 points or > to improve balance Goal Time Frame: 4-6 Weeks Goal 6:: Patient to improve LFES score by 5-10 points or >to improve function and QOL - Rehabilitation Potential Physical Therapy Diagnosis: Patient underwent cervical fusion 8 weeks ago with weakness BLE R>L ,decrease gait, balance and transfers causes deficits with ADLS and function Rehabilitation Potential: Good - Anticipated Interventions Patient/Client Instruction: Educate patient on: Condition, Plan of Care For the Purpose of:: To decrease pain, To improve muscle performance and motor function, To improve ability to perform ADL's, To increase tolerance to activity/condition/position, To improve performance and independence with ADL's, To improve ability of physical actions for home/community/work/leisure, To improve health of tissue, To decrease soft tissue restriction, To increase flexibility/ROM, To improve endurance, To improve balance, To improve safety with gait, To assume or resume ADL's, To improve safety, To improve ability to perform tasks related to life management, To improve tolerance to ADL's Therapeutic Exercise to Include: Strength training, Endurance training, Balance training, Flexibilty training, Gait and locomotor training, Active ROM Comment: BLE QUADS/HAMS/HIP For the Purpose of:: To decrease pain, To improve muscle performance and motor function, To improve ability to perform ADL's, To increase tolerance to activity/condition/position, To improve performance and independence with ADL's, To improve ability of physical actions for home/community/work/leisure, To improve gait and locomotor functions, To decrease soft tissue restriction, To increase flexibility/ROM, To improve endurance, To improve balance, To improve safety with gait, To assume or resume ADL's, To improve ability to perform tasks related to life management, To improve tolerance to ADL's Thank you for the opportunity to evaluate your patient. For Medicare and Medicare HMO plans, please review the plan of care and approve it. It will need to be FAXED BACK to us at [phone] for Medicare purposes. For Medicare only, by signing this I certify the plan of care. Please let me know if there are questions or concerns regarding this plan of care. Physician Signature: Date:
--- NOTE | 2021-10-23 10:50 | HP.PTDCSUM_ITS ---
It has been my pleasure to treat CHEKO COLEMAN referred by Aldo Nielsen, MAYURI- C, with the diagnosis of RIGHT KNEE PAIN for a total of 7 visit(s). Discharge Date: Please see the following information for a summary of their discharge status. Subjective: Doing okay % Improvement: 90 Objective/Function: MAX tx well with progression with strengthening and balance and function Goal 1:: I with HEP Goal 2:: Improve quality of gait with fww community distances Goal 3:: Improve dynamic balance with fww fair+ Goal 4:: Patient to improve BLE strength to 4/5 quads/hams and hip 3+/5 to improve to improve transfers with mod I Goal 5:: Patient to improve CATSIB by 10 points or > to improve balance Goal 6:: Patient to improve LFES score by 5-10 points or >to improve function and QOL Plan: S/P FUSION CERVICAL 8 WEEKS AGO. PT INTERVETIONS PROGRESSIVE GAIT TRAINING,BALANCE PROGRAM,ENDURANCE /PROGRAM,PRE'S BLE/ AND FUNCTIONAL STRENGTHENING If there are questions or concerns regarding this patient's physical therapy, please feel free to call me at [phone]. Thank you for the referral of this patient. Sincerely, Fortino Cooper, PT, Cert MDT, OCS Balance/Gait/Functional tests - Balance/Special Test Scores CATSIB Score (Max score 120 seconds): 5 Lower Extremity Functional Score: 61
== END 2021-05-24 19:00 | disposition home or self-care (01) ==
LOC: PT 11:00
PROVIDERS: PCP Nurse Practitioner Family; Referring Provider Nurse Practitioner Family; Visit Provider Nurse Practitioner Family
DX: M79.641 Pain in right hand (principal); M25.561 Pain in right knee
CPT/HCPCS: 97110; 97140; 97162; 97165; 97166; 97530

== ENCOUNTER 2021-06-08 12:10 | Observation (INO) | payer MEDICARE, MEDICAID, SELFPAY ==
[2021-06-08] VITALS (12 sets, daily range): BP systolic 83–119; BP diastolic 53–67; PULSE 62–85; RESP 16–19; TEMP 36.1–36.8; O2SAT 94–99; BMI 29.8; BMI 29.5
--- NOTE | 2021-06-08 12:42 | RAD_ITS ---
INDICATION: chest pain EXAMINATION/TECHNIQUE: X-RAY - XR Chest 1 View COMPARISON: None. FINDINGS: LINES/DEVICES: None. LUNGS: No consolidation, edema or effusion. No pneumothorax. MEDIASTINUM AND CARDIOVASCULAR STRUCTURES: Cardiac silhouette not enlarged. Central airways and mediastinal contour are unremarkable. BONES AND SOFT TISSUES: Unremarkable. RAD/Chest 1 View (Portable) IMPRESSION: No radiographic evidence of acute cardiopulmonary disease. Electronically Signed: Sang Sanchez MD at 13:57 EDT Tel , Service support ,
--- NOTE | 2021-06-08 12:42 | EKG12_ITS ---
Test Reason : CP Blood Pressure : / mmHG Vent. Rate : 086 BPM Atrial Rate : 086 BPM P-R Int : 148 ms QRS Dur : 098 ms QT Int : 356 ms P-R-T Axes : 054 009 042 degrees QTc Int : 426 ms Normal sinus rhythm Normal ECG Confirmed by SHADI GARCIA, JOSE LUIS ([id number]), features editor BHASKAR PEREZ ([id number]) on 06/13/2021 8:17:38 AM Referred By: CLARISA/MAURIZIO Confirmed By:HARIKA HSU MD
--- NOTE | 2021-06-08 13:07 | EDS_ITS ---
HPI History of Present Illness Chief Complaint: Chest Pain Informant: patient Onset/Context/Timing Onset: Today Activity at onset: sudden Timing: Intermittent and Lasts (5 minutes) Location: Substernal Worsened By: Nothing Relieved By: Nothing Associated Symptoms: Positive for Dyspnea; Negative for Nausea, Vomiting, Diaphoresis, Cough, Fever, Lightheadedness, Acid Reflux and Palpitations Narrative Narrative: Patient presents with chest pain that began today. Patient states it began suddenly while he was at rest. Patient states he was getting ready to take a nap and was putting on his CPAP machine. Patient states the pain is been intermittent. Patient states the pain last approximately 5 minutes. Patient states the pain is over the substernal area. Patient states nothing makes it better and nothing makes it worse. Patient admits to some lightheadedness. Patient admits to some shortness of breath. CVD Risk Factors: Positive for Hypertension and Smoking; Negative for Diabetes, Hypercholesterolemia and Family History 1' </=55 PE Risk Factors: Positive for Recent Travel/Surgery; Negative for Prior DVT or PE, Cancer and OCP + Smoking + >/=35 PFSH PFSH Medical History Hypertension TIA (transient ischemic attack) Home Medications Fish Oil 1 ea PO DAILY 09/17/13 [History Last Taken 05/26/20 08:00] Therems-M 1 tab PO DAILY 09/17/13 [History Last Taken 05/26/20 08:00] apple cider vinegar 600 mg PO DAILY 05/27/20 [History Last Taken 05/26/20 08:00] aspirin 81 mg PO DAILY@0800 #0 tab.chew 05/27/20 [Rx Last Taken Unknown] lisinopril-hydrochlorothiazide 1 ea PO DAILY 10/18/20 [History Last Taken Unknown] hydroxyzine HCl 50 mg PO QHS 04/06/21 [History Last Taken Unknown] tamsulosin 0.4 mg PO DAILY 06/08/21 [History Last Taken Unknown] Allergy/AdvReac Type Severity Reaction Status Date / Time No Known Allergies Allergy Verified 06/08/21 12:11 Surgical History H/O cervical spine surgery Social History Smoking Status: Former smoker ROS ROS ED Constitutional Constitutional ED: Denies chills or fever(s) Eyes Eyes: Denies blurry vision or change in vision ENT ENT ED: Denies rhinorrhea or sore throat Cardiovascular Cardiovascular: Reports chest pain; Denies palpitations Respiratory/Chest Respiratory/Chest: Reports dyspnea; Denies cough Gastrointestinal Gastrointestinal: Denies abdominal pain, nausea or vomiting Genitourinary Genitourinary ED: Denies dysuria or hematuria Musculoskeletal Musculoskeletal: Reports back pain and neck pain Integumentary Denies abscess or rash Neurologic Neurologic: Denies headache(s) or weakness Allergic/Immunologic Allergic/Immunologic ED: Denies mouth swelling or urticaria EXAM Physical Exam Const Vital Signs: 06/08/21 12:14 06/08/21 12:18 06/08/21 13:47 Temperature 98.2 F Temperature Source Oral Pulse Rate 85 Respiratory Rate 16 Blood Pressure 104/62 104/62 86/53 L Blood Pressure Mean 76 76 64 Pulse Ox 97 Oxygen Delivery Method Room Air 06/08/21 13:57 06/08/21 14:05 Temperature Temperature Source Pulse Rate 70 Respiratory Rate 18 Blood Pressure 83/55 L Blood Pressure Mean 64 Pulse Ox 97 Oxygen Delivery Method Room Air Room Air Positive well nourished and well developed General Appearance ED: well developed HEENT normocephalic and atraumatic Eyes PERRL and EOMs intact bilaterally Neck supple and no JVD Chest Wall palpation of chest normal Resp normal respiratory effort and clear to auscultation bilaterally Effort and Inspection: Negative for respiratory distress Cardio regular rate, regular rhythm and no murmurs GI normal to inspection, nondistended, normoactive bowel sounds, soft to palpation, non-tender and non-distended Extremity normal to inspection General Extremety ED: Negative for edema or tenderness General Extremity: Negative for edema Neuro oriented x3, CN's II-XII intact bilaterally and no sensory deficits noted Sensorium / Orientation: awake and alert Motor Exam: strength 5/5 throughout Psych mental status grossly normal Heart Score History: Moderately Suspicious ECG: Normal Age: >/= 65 years Risk Factors: 1 or 2 Risk Factors Troponin: </= Normal Limit Score: 4 MDM MDM MDM Narrative Medical decision making narrative: EKG was obtained. On my interpretation, it showed a normal sinus rhythm with a rate of 86. UT interval, QRS interval, and QTc intervals were all normal. Powell was normal. There are no acute ST or T wave changes. Portable 1 view chest x-ray was obtained. On my interpretation, lung mullins are clear. There is normal cardiac silhouette. Bony thorax is normal. There is no acute process noted. Radiologist also interpreted the x- ray and agrees. CBC and basic metabolic profile were obtained. Creatinine was slightly elevated at 1.71. BUN was 31. These were increased compared to most previous result 3 months ago. High-sensitivity troponin was normal. Patient has a HEART score of 4. Patient did have a hypotensive episode here. Patient was given IV fluids. Case was discussed with the hospitalist. She will admit the patient for observation. COVID-19 rapid antigen was obtained. 2-hour repeat high-sensitivity troponin was ordered. Patient understood and was agreeable with the plan. All questions were answered. Lab Data Attestation: I reviewed the patient's lab results. Labs: Laboratory Results - last 24 hr 06/08/21 06/08/21 13:40 13:40 WBC 6.0 RBC 3.76 L Hgb 12.1 L Hct 35.2 L MCV 93.6 MCH 32.2 H MCHC 34.4 RDW Std Deviation 42.2 RDW Coeff of Diego 12.2 Plt Count 149 L MPV 10.0 Immature Gran % (Auto) 0.300 Neut % (Auto) 73.3 H Lymph % (Auto) 16.9 L [place] % (Auto) 8.7 Eos % (Auto) 0.5 Baso % (Auto) 0.3 Absolute Neuts (auto) 4.4 Absolute Lymphs (auto) 1.01 Nucleated RBC % 0 Sodium 136 Potassium 4.4 Chloride 102 Carbon Dioxide 27.0 Anion Gap 7 BUN 31 H Creatinine 1.71 H Estim Creat Clear Calc 42.49 Est GFR (MDRD) Af Amer 52 L Est GFR (MDRD) Non-Af 43 L BUN/Creatinine Ratio 18.1 Glucose 92 Calcium 9.4 Troponin I High Sens 10 Radiography Chest X-Ray - ED: 1 View, Read by ED Physician, Read by Radiologist and Normal Diagnostic Testing: Radiology Impression Chest X-Ray 06/08/21 12:42 IMPRESSION: No radiographic evidence of acute cardiopulmonary disease. Electronically Signed: Sang Sanchez MD at 13:57 EDT Tel , Service support , EKG Initial EKG: Attestation: I personally reviewed and interpreted this EKG as follows: Interpretation: Sinus Rhythm (86) and No Acute Injury Pattern Prior EKG tracings: available for review Prior: Unchanged (05/26/2020) Treatment and Re-Evaluation Vital Sign Attestation:: Vital signs were reviewed prior to admission. Patient's blood pressure is improving. Remaining vital signs are stable. Discharge Plan Dx/Rx/DC Orders Clinical Impression: Chest pain, Acute kidney injury Disposition Disposition: Acute Care Hospital [facility]
[2021-06-08 13:52] LABS: Absolute Lymphocyte Count 1.01 X10^3/uL (0.83-4.51); Absolute Neutrophil Count 4.4 X10^3/uL (2.0-7.7); Basophil# 0.02 X10^3/uL; Basophil% 0.3 % (0-1); Eosinophil# 0.03 X10^3/uL; Eosinophils% 0.5 % (0-5); Hematocrit 35.2 % (40-54); Hemoglobin 12.1 g/dL (13.0-16.5); Lymphocyte # 1.01 X10^3/ul (0.83-4.51); Lymphocyte % 16.9 % (19-41); Mean Corp Hgb Conc 34.4 g/dL (32-36); Mean Corpuscular Hgb 32.2 pg (27.0-32.0); Mean Corpuscular Volume 93.6 fL (80-94); Monocyte# 0.52 X10^3/uL; Monocyte% 8.7 % (0-10); NRBC Flagged by Analyzer 0 % (0-5); Neutrophil # 4.36 X10^3/uL (2.7-7.7); Neutrophil % 73.3 % (47-70); Platelet Count 149 K/mm3 (150-450); RBC Distribution Width CV 12.2 % (11.6-14.6); RBC Distribution Width SD 42.2 fl (35.1-43.9); Red Blood Count 3.76 M/mm3 (4.6-6.2)
[2021-06-08] MEDS: 0.9% Normal Saline 1,000 ML 1000 ML IV (14:03)
[2021-06-08 14:11] LABS: Anion Gap 7 (5-15); BUN 31 mg/dL (7-18); BUN/Creat Ratio 18.1 RATIO (10-20); Calcium,Total 9.4 mg/dL (8.5-10.1); Chloride 102 mmol/L (98-107); Creatinine, Serum 1.71 mg/dL (0.70-1.30); EST Glomerular Filtration Rate 43 mL/min (>60); Est Glom Filt Rate - Afr Amer 52 mL/min (>60); Estimated Creatinine Clearance 42.49 ml/min; Glucose 92 mg/dL (74-106); Potassium 4.4 mmol/L (3.5-5.1); Sodium Level 136 mmol/L (136-145); Troponin-I HS 10 pg/mL (3.0-78.0)
--- NOTE | 2021-06-08 14:52 | NURSING ---
[address] HUANG
--- NOTE | 2021-06-08 15:06 | HP.PCM.HOS_ITS ---
HPI - General General Date of Admission: 06/08/21 HPI Narrative CHEKO COLEMAN, is a 65 M who presented to the emergency department [facility] on 06/08/2021 with a chief complaint of chest pain. His symptoms began earlier today and he reports that it occurred while he was getting ready to take a nap and was placing his CPAP machine in place. He reports that his pain has been intermittent today and lasts for approximately 5- minute when it occurs. The symptoms were substernal. He reports nothing really makes it better or worse when it occurs. He does report some associated lightheadedness and mild shortness of breath but no nausea diaphoresis or vomiting. He indicates he has had some back pain but has attributed this to his urinary issues that he has been having recently. He has a history of TIA, hypertension, and tobacco abuse. He quit smoking in December 2020. Overall in the emergency department his vital signs were stable. He did have a transient episo de of hypotension which resolved with no intervention. His CBC shows mild chronic anemia and mild thrombocytopenia with a platelet count of 149. His BMP shows an elevated BUN/creatinine with a serum creatinine of 1.71. His baseline serum creatinine is around 1. His high-sensitivity troponin was 10 on initial draw. His chest x-ray shows no acute cardiopulmonary process. His EKG was sinus with no acute ST-T wave changes indicative of ischemia. He will be admitted to PCU for further work-up. [facility] Medical History Hypertension TIA (transient ischemic attack) Home Medications Fish Oil 1 ea PO DAILY 09/17/13 [History Last Taken 06/07/21] apple cider vinegar 600 mg PO DAILY 05/27/20 [History Last Taken 2 Days Ago ~06/06/21] aspirin 81 mg PO DAILY@0800 #0 tab.chew 05/27/20 [Rx Last Taken 06/07/21] lisinopril-hydrochlorothiazide 1 tab PO DAILY 06/08/21 [History Last Taken 06/08/21] melatonin 10 mg PO QHS 06/08/21 [History Last Taken 06/07/21] ttiyetyv-gugg-YP-calcium-mins [Therems-M] 1 tab PO DAILY 06/08/21 [History Last Taken 06/07/21] sulfamethoxazole-trimethoprim 1 tab PO BID 06/08/21 [History Last Taken 06/08/21] tamsulosin 0.4 mg PO DAILY 06/08/21 [History Last Taken 06/07/21] Allergy/AdvReac Type Severity Reaction Status Date / Time No Known Allergies Allergy Verified 06/08/21 12:11 Family History (Updated 06/08/21 @ 15:[address] Araina Rogers DO) Mother Diabetes Surgical History (Updated 06/08/21 @ 15:[address] Ariana Rogers DO) H/O cervical spine surgery History of cholecystectomy Social History Smoking Status: Former smoker ROS Constitutional Constitutional: Denies anorexia, change in weight, chills, fatigue, fever(s), malaise, night sweats, weakness or other Eyes Eyes: Denies blurry vision, change in eye color, change in vision, discharge from eye(s), double vision, erythema, eye pain, loss of vision or other ENT HEENT: Denies abnormal hearing, dysphagia, ear pain, epistaxis, headache(s), h earing loss, nasal congestion, nasal discharge, post nasal drip, sinus pressure, sore throat or other Cardiovascular Cardiovascular: Reports chest pain and dyspnea on exertion; Denies claudication, edema, lightheadedness, orthopnea, palpitations, paroxysmal nocturnal dyspnea, rapid heart rate, syncope or other Respiratory/Chest Respiratory/Chest: Denies cough, dyspnea, excessive phlegm production, hemoptysis, productive cough, shortness of breath at rest, shortness of breath with exertion, wheezing or other Gastrointestinal Gastrointestinal: Denies abdominal pain, coffee ground emesis, constipation, diarrhea, dyspepsia, hematemesis, hematochezia, loose stools, melena, nausea, vomiting or other Genitourinary Genitourinary: Reports difficulty urinating, nocturia, urinary frequency and urinary hesitancy; Denies burning urination, dysuria, hematuria, urinary incontinence, urinary urgency or other Musculoskeletal Musculoskeletal: Reports joint pain and joint stiffness; Denies arthralgias, back pain, joint swelling, myalgias, neck pain or other Neurologic Neurologic: Denies abnormal gait, abnormal speech, confusion, disequilibrium, dizziness, focal weakness, headache(s), numbness, paresthesias, seizure-like activity, seizures, syncope, tingling, tremor(s) or other Psychiatric Psychiatric: Denies anxiety, depression, homicidal ideation, suicidal ideation or other Endocrine Endocrinology: Denies change in body appearance, cold intolerance, excessive sweating, heat intolerance, polydipsia, polyuria or other Hematologic/Lymphatic Hematologic/Lymphatic: Denies anemia, easy bleeding, easy bruising, lymphadenopathy or other Allergic/Immunologic Allergic/Immunologic: Denies rhinitis, hives, eczemia, asthma or other Vital Signs Vital Signs Vital Signs: 06/08/21 12:14 06/08/21 12:18 06/08/21 13:47 Temperature 98.2 F Temperature Source Oral Pulse Rate 85 Respiratory Rate 16 Blood Pressure 104/62 104/62 86/53 L Blood Pressure Mean 76 76 64 Pulse Ox 97 Oxygen Delivery Method Room Air 06/08/21 13:57 06/08/21 14:05 Temperature Temperature Source Pulse Rate 70 Respiratory Rate 18 Blood Pressure 83/55 L Blood Pressure Mean 64 Pulse Ox 97 Oxygen Delivery Method Room Air Room Air Weight Weight: 91.7 kg Body Mass Index (BMI) 29.8 Physical Exam Const alert, oriented x3 and no apparent distress Constitutional Narrative: Overweight upper middle-aged white male lying in bed, appears comfortable, nontoxic appearing, pleasant General Appearance: cooperative HEENT normocephalic, head/scalp atraumatic, hearing grossly normal bilaterally and moist oral mucous membranes HEENT Narrative: Dentition fair, Mallampati 2-3, no thrush Eyes PERRL, EOMs intact bilaterally and conjunctivae normal Neck no lymphadenopathy, supple, no JVD and no carotid bruits Neck Narrative: Trachea midline, no thyromegaly noted Resp normal respiratory effort, no retractions, no use of accessory muscles and clear to auscultation bilaterally Resp Narrative: Slightly diminished but clear diffusely Auscultation: Negative for crackles, rales, rhonchi or wheezes Cardio regular rate, regular rhythm, S1 normal heart sound, S2 normal heart sound, no murmurs, no rub, no gallops, no clicks and no JVD GI normal to inspection, nondistended, normoactive bowel sounds, soft to palpation, non-tender and non-distended Extremity normal to inspection and no clubbing, cyanosis or edema Peripheral Pulses: Yes pulses 2+ throughout Skin no rashes or lesions noted, no wounds, skin turgor normal, no jaundice, no petechiae and no mottling Neuro oriented x3, CN's II-XII intact bilaterally and moves all extremities Sensorium / Orientation: awake and alert Speech: speech normal Motor Exam: strength 5/5 throughout Psych affect normal Psych Narrative: Very pleasant Results Lab / Micro Data Attestation: I reviewed the patient's lab results. Result Diagrams: 06/08/21 13:40 06/08/21 13:40 Labs: Laboratory Results - last 24 hr 06/08/21 13:40: WBC 6.0, RBC 3.76 L, Hgb 12.1 L, Hct 35.2 L, MCV 93.6, MCH 32.2 H, MCHC 34.4, RDW Std Deviation 42.2, RDW Coeff of [place] 12.2, Plt Count 149 L, M PV 10.0, Immature Gran % (Auto) 0.300, Neut % (Auto) 73.3 H, Lymph % (Auto) 16.9 L, [place] % (Auto) 8.7, Eos % (Auto) 0.5, Baso % (Auto) 0.3, Absolute Neuts (auto) 4.4, Absolute Lymphs (auto) 1.01, Nucleated RBC % 0 06/08/21 13:40: Sodium 136, Potassium 4.4, Chloride 102, Carbon Dioxide 27.0, Anion Gap 7, BUN 31 H, Creatinine 1.71 H, Estim Creat Clear Calc 42.49, Est GFR (MDRD) Af Amer 52 L, Est GFR (MDRD) Non-Af 43 L, BUN/Creatinine Ratio 18.1, Glucose 92, Calcium 9.4, Troponin I High Sens 10 Radiology Impression Chest X-Ray 06/08/21 12:42 IMPRESSION: No radiographic evidence of acute cardiopulmonary disease. Electronically Signed: Sang Sanchez MD at 13:57 EDT Tel , Service support , Assessment & Plan Assessment/Plan (1) Acute kidney injury: (2) Chest pain: (3) Hypotension: (4) Chronic anemia: (5) Thrombocytopenia: PLAN: Chest pain -Symptoms have now resolved -Cycle cardiac enzymes -Check a.m. lipids -Stress test in a.m. -We will use as needed beta-johnny for systolic greater than 160 is patient's blood pressures in the emergency department were borderline -High intensity of statin with Lipitor 80 mg daily -Continue home aspirin--> full dose aspirin given in the emergency department [facility] -Could be post renal given the fact the patient is complaining of some urinary retention intermittently -If renal function does not improve with IV fluids would consider placing a Hatch in the next 24 hours or sooner -Patient is also been on Bactrim so could be related to this as well -Hold Bactrim -IV fluids with normal saline at 75 cc/h -Hold Bactrim, lisinopril, HCTZ -1.0-1.1 -Current serum creatinine is 1.71 -It appears the patient has had some fluctuations recently Hypertension -Patient had some borderline hypotensive numbers in the emergency department but was asymptomatic -We will hold home lisinopril, hydrochlorothiazide -As needed labetalol is ordered for systolic blood pressure greater than 160 -If blood pressure improves would consider scheduled metoprolol given chest pain Chronic anemia -Hemoglobin is relatively stable when compared to previous lab -Anemia is normocytic -Etiology at this time is unknown -Consider outpatient work-up Thrombocytopenia -Very mild with a count of 149 normal being 150 -Repeat CBC in a.m LUIS ALBERTO -Patient wears 9 cmH2O on CPAP at at bedtime -Order in place BPH -Continue Flomax History of tobacco abuse -Patient quit smoking in December 2020 -Encourage continued cessation DVT prophylaxis -SCDs -Lovenox CODE STATUS -Full code
--- NOTE | 2021-06-08 16:00 | EKG12_ITS ---
Test Reason : AM EKG Blood Pressure : / mmHG Vent. Rate : 065 BPM Atrial Rate : 065 BPM P-R Int : 170 ms QRS Dur : 104 ms QT Int : 392 ms P-R-T Axes : 049 050 049 degrees QTc Int : 407 ms Normal sinus rhythm with sinus arrhythmia Low voltage QRS (Limb Leads) Borderline ECG Confirmed by TINY GARCIA, TOM ([id number]), book editor BHASKAR PEREZ ([id number]) on 06/14/2021 9:37:06 AM Referred By: SAL Confirmed By:TOM FRANKS MD
[2021-06-08] MEDS: 0.9% Saline Lock 10 ML Syringe IV (16:29)
[2021-06-08] MEDS: 0.9% Normal Saline 1,000 ML 50 ML IV (16:29)
[2021-06-08 17:22] LABS: Troponin-I HS 10 pg/mL (3.0-78.0)
[2021-06-08 19:09] LABS: Troponin-I HS 10 pg/mL (3.0-78.0)
[2021-06-08] MEDS: hydrOXYzine PAM 25 MG Capsule 50 MG PO (21:16)
[2021-06-08] MEDS: Atorvastatin Calcium 80 MG Tablet PO (21:16)
[2021-06-08 22:55] LABS: Troponin-I HS 10 pg/mL (3.0-78.0)
[2021-06-08] MEDS: Pramipexole Di-HCl 0.125 MG Tablet PO (23:08)
[2021-06-09] VITALS (7 sets, daily range): BP systolic 105–109; BP diastolic 61–71; PULSE 71–84; RESP 16–18; TEMP 36.6–36.8; O2SAT 97–98
[2021-06-09 01:27] LABS: Bacteria 0 SEEN /hpf (None Seen); Glucose, Dipstick Normal (Normal); Ketone-Dipstick Negative (Negative); Leukocyte Esterase-Dipstick Negative /ul (Negative); Mucous, Urine 0 SEEN /hpf (<or=2+); Nitrite-Dipstick Negative (Negative); Occult Blood-Urine Negative /ul (Negative); Protein-Dipstick Negative (Negative); Red Blood Cells-Urine 0 SEEN /hpf (0-5); Specific Gravity, Urine 1.015 (1.002-1.030); Squamous Epithelial Cells - UA 0 SEEN /hpf (0-5); Urine Bilirubin Dipstick Negative (Negative); Urine Urobilinogen Normal (Normal); White Blood Cells 0 SEEN /hpf (0-5)
[2021-06-09 01:28] LABS: Color, Urine YELLOW (Yellow); Urine Clarity Clear (Clear)
[2021-06-09] MEDS: Acetaminophen 325 MG Tablet 650 MG PO (02:48)
[2021-06-09 05:28] LABS: Absolute Lymphocyte Count 1.19 X10^3/uL (0.83-4.51); Absolute Neutrophil Count 3.8 X10^3/uL (2.0-7.7); Basophil# 0.03 X10^3/uL; Basophil% 0.5 % (0-1); Eosinophil# 0.09 X10^3/uL; Eosinophils% 1.6 % (0-5); Hematocrit 31.7 % (40-54); Hemoglobin 10.6 g/dL (13.0-16.5); Lymphocyte # 1.19 X10^3/ul (0.83-4.51); Lymphocyte % 21.4 % (19-41); Mean Corp Hgb Conc 33.4 g/dL (32-36); Mean Corpuscular Hgb 31.9 pg (27.0-32.0); Mean Corpuscular Volume 95.5 fL (80-94); Mean Platelet Vol. 10.5 fl (6.2-12.0); Monocyte# 0.47 X10^3/uL; Monocyte% 8.5 % (0-10); NRBC Flagged by Analyzer 0 % (0-5); Neutrophil # 3.75 X10^3/uL (2.7-7.7); Neutrophil % 67.6 % (47-70); Platelet Count 128 K/mm3 (150-450); RBC Distribution Width CV 12.4 % (11.6-14.6); RBC Distribution Width SD 43.3 fl (35.1-43.9); Red Blood Count 3.32 M/mm3 (4.6-6.2); White Blood Count 5.6 K/mm3 (4.4-11.0)
--- NOTE | 2021-06-09 05:55 | EKG12_ITS ---
Test Reason : CP ADMIN Blood Pressure : / mmHG Vent. Rate : 071 BPM Atrial Rate : 071 BPM P-R Int : 170 ms QRS Dur : 106 ms QT Int : 400 ms P-R-T Axes : 047 034 042 degrees QTc Int : 434 ms Normal sinus rhythm with sinus arrhythmia Normal ECG Confirmed by TINY GARCIA, TOM ([id number]), production editor BHASKAR PEREZ ([id number]) on 06/14/2021 9:37:19 AM Referred By: SAL Confirmed By:TOM FRANKS MD
[2021-06-09 06:09] LABS: AST(SGOT) 23 U/L (15-37); Alanine Aminotransfer ALT/SGPT 31 U/L (16-61); Albumin, Serum 3.1 g/dL (3.2-5.0); Alkaline Phosphatase 63 U/L (45-117); Anion Gap 8 (5-15); BUN 29 mg/dL (7-18); BUN/Creat Ratio 19.1 RATIO (10-20); Calcium,Total 8.6 mg/dL (8.5-10.1); Chloride 106 mmol/L (98-107); Cholesterol 105 mg/dL (200); Creatinine, Serum 1.52 mg/dL (0.70-1.30); EST Glomerular Filtration Rate 49 mL/min (>60); Est Glom Filt Rate - Afr Amer 59 mL/min (>60); Estimated Creatinine Clearance 46.25 ml/min; Globulin 3.2 g/dL (2.2-4.2); Glucose 89 mg/dL (74-106); High Density Lipoprotein 45 mg/dL; Phosphorus 3.5 mg/dL (2.5-4.9); Protein, Total 6.3 g/dL (6.4-8.2); Sodium Level 137 mmol/L (136-145); Thyroid Stim Hormone (TSH) 1.18 uIU/mL (0.358-3.74); Triglycerides 73 mg/dL; Very Low Density Lipoprotein 15 mg/dL (5-40)
[2021-06-09] MEDS: Aspirin 81 MG TAB.CHEW PO (06:17)
--- NOTE | 2021-06-09 07:19 | PCS.PANDOC ---
PANDEMIC DOCUMENTATION INITIATED: Date: 06/09/2021 Time: 1197
[2021-06-09] MEDS: Tamsulosin HCl 0.4 MG Capsule PO (10:00)
[2021-06-09] MEDS: Multivitamins,Ther W-Minerals Tablet 1 TABLET PO (10:00)
[2021-06-09] MEDS: Omega-3 Acid Ethyl Esters 1 GM Capsule PO (10:00)
--- NOTE | 2021-06-09 11:28 | DCINST_ITS ---
Discharge Instructions Diet Discharge Diet: No restrictions Activity Discharge Activity: Return to Normal Activity Weight Bearing Status: Weight bearing as tolerated Dressing / Incision Call your doctor if you observe: Fever of 101 or Higher, Numbness or Tingling, Shortness of breath, Dizziness, Chest pain, Increased palpitations (irregular heartbeat) and Calf discomfort Follow Up Care Please Follow Up With: Primary care provider When: Within the next two weeks. Test Results: Test results from this visit will be discussed in further detail at your follow-up appointment, if applicable. Discharge Plan Admission Admit Date/Time: 06/08/21 15:05 Primary Reason for Your Visit: Chest pain Attending Provider: Joelle Lee Primary Care Provider: Aldo Nielsen NP Instructions Patient Instructions: ED Chest Pain, Noncardiac Discharge Orders/Prescriptions Prescriptions: Continued Fish Oil 1 EACH capsule 1 ea PO DAILY RF: 0 apple cider vinegar 600 MG capsule 600 mg PO DAILY RF: 0 aspirin 81 MG tablet,chewable 81 mg PO DAILY@0800 Qty: 0 RF: 0 tamsulosin 0.4 mg capsule 0.4 mg PO DAILY RF: 0 lisinopril-hydrochlorothiazide 20-12.5 mg tablet 1 tab PO DAILY RF: 0 sulfamethoxazole-trimethoprim 800-160 mg tablet 1 tab PO BID RF: 0 Therems-M 9 mg iron-400 mcg Tablet 1 tab PO DAILY RF: 0 melatonin 10 mg Tablet 10 mg PO QHS RF: 0 Referrals / Follow Up: Aldo Nielsen NP, [employer] [Primary Care Provider] - Within 2 Weeks Disposition Disposition (needs filled in before D/C Order can be placed): Home, Self Care
--- NOTE | 2021-06-09 11:29 | STRESSREP_ITS ---
Stress Test Report Date: 06/09/2021 Procedure: Pharmacologic stress nuclear imaging study Indications: Chest pain Consent: Per the patient Procedure: The patient underwent pharmacologic (Regadenoson) evaluation with a peak heart rate of 98 beats per minute (63%predicted maximal heart rate) and a peak blood pressure of 117/62 mmHg. The baseline ECG demonstrated normal sinus rhythm. EKG during lexiscan infusion revealed no significant ischemic changes. EKG post infusion revealed no significant ischemic changes [There were no cardiac dysrhythmias pretest, during pharmacologic infusion, or recovery]. [There was no complaint of chest discomfort during pharmacologic infusion or recovery]. The examination was discontinued secondary to completion of protocol. Impression: 1. Lexiscan stress test test is negative for Lexiscan infusion induced EKG changes of ischemia. 2. Lexiscan stress test test is negative for Lexiscan infusion induced chest pain. 3. Results of the nuclear portion of the test is as below Myocardial perfusion imaging study: Technique: The patient was injected with 13.2 millicuries of technetium 99m Cardiolite and subsequently rest SPECT Cardiolite nuclear imaging was obtained in the horizontal long, vertical long, and short axis views. The patient underwent pharmacologic [Regadenoson 0.4mg] evaluation. Please see above for details. The patient was injected with 43.8 millicuries of technetium 99m Cardiolite and subsequently stress SPECT Cardiolite nuclear imaging was obtained in the horizontal long, vertical long, and short axis views. A gated Cardiolite study at peak stress was obtained. Interpretation: Rest and stress SPECT Cardiolite nuclear imaging status post realignment, normalization, and attenuation correction demonstrate normal myocardial radioisotope uptake. Gated images reveal no significant regional wall motion abnormalities. The reported LVEF is greater than 70%. Impression: 1. There is no evidence of significant ischemia or infarction. 2. Estimated ejection fraction is greater than 70%. This note was generated with [employer] software. It may contain incorrect words, spelling, and punctuation that were not noted in checking the note before signing.
--- NOTE | 2021-06-09 12:17 | CASEMGMT ---
Addendum entered by Africa Youngblood 06/09/21 13:57: Per therapy, pt is not safe to go home and pt is agreeable to SNF for further rehab now at this time. Elzbieta ALLISON updated, voices understanding. Letty LEIVA CM Original Note: Per Dr. Lee, pt is interested in HHC at discharge. This RN CM to room and after discussing with pt/daughter, pt declines HHC at this time. Pt states is already active with OP therapy at [facility] and he would like to continue that. Pt states already established with [facility] and they are working on getting him aides for 3hours/day. Pt was already provided a list of HHC providers including quality and resource use data and consistent with the patient?s preferred geographic region, medical needs, and insurance network. This RN CM did ask pt if he is able to go home at discharge and pt states plan is to go home. Pt/daughter voice no further questions/concerns/needs. Marina Mario PA-C into room to speak with pt/daughter. CM to follow for PT/OT milla. Letty LEIVA CM
--- NOTE | 2021-06-09 12:17 | CASEMGMT ---
Per Dr. Lee, pt is interested in HHC at discharge. This RN CM to room and after discussing with pt/daughter, pt declines HHC at this time. Pt states is already active with OP therapy at [facility] and he would like to continue that. Pt states already established with [facility] and they are working on getting him aides for 3hours/day. Pt was already provided a list of HHC providers including quality and resource use data and consistent with the patient?s preferred geographic region, medical needs, and insurance network. Pt/daughter voice no further questions/concerns/needs. Marina Mario PA-C into room to speak with pt/daughter. Letty LEIVA CM
--- NOTE | 2021-06-09 12:33 | DS.PCM_ITS ---
Documented by User: Julio TEE 06/09/21 12:41 Providers Date of Admission: 06/08/21 Primary Care Physician: MELODY Chow Reason For Visit: CHEST PAIN Diagnosis Discharge Diagnosis (1) Acute kidney injury: Status: Acute Code(s): N17.9 - Acute kidney failure, unspecified (2) Chest pain: Status: Acute Code(s): R07.9 - Chest pain, unspecified (3) Hypotension: Status: Acute Code(s): I95.9 - Hypotension, unspecified (4) Chronic anemia: Status: Chronic Code(s): D64.9 - Anemia, unspecified (5) Thrombocytopenia: Status: Acute Code(s): D69.6 - Thrombocytopenia, unspecified Medications at Discharge Home Medications Fish Oil 1 ea PO DAILY 09/17/13 apple cider vinegar 600 mg PO DAILY 05/27/20 aspirin 81 mg PO DAILY@0800 #0 tab.chew 05/27/20 Therems-M 1 tab PO DAILY 06/08/21 lisinopril-hydrochlorothiazide 1 tab PO DAILY 06/08/21 melatonin 10 mg PO QHS 06/08/21 sulfamethoxazole-trimethoprim 1 tab PO BID 06/08/21 tamsulosin 0.4 mg PO DAILY 06/08/21 Hospital Course Procedures Stress test Summary of Care Provided Minutes Spent on Discharge: 35 Hospital Course: Disposition: Patient to discharge home. [facility], no additional therapies needed. 1) chest pain/ACS rule out Stress test does not demonstrate any evidence of ischemia or infarction. Ejec tion fraction is 70%, within normal limits. High-sensitivity troponin not elevated. Lipid panel is within normal limits. Plan; discharge home, follow-up with primary care provider within the next 2 weeks. 2) HTN Continue home BP regimen. 3) BPH Continue Flomax. 4) LUIS ALBERTO Continue CPAP at home. 5) chronic anemia Stable. 6) thrombocytopenia Stable. Patient seen by Julio Mario PA-C, under the supervision of Dr. Lee. Physical Exam Narrative Patient is a 65-year-old male comfortably resting in bed, alert and orient x3. Patient reports resolution of chest pain from admission. Denies any development of new symptoms since admission. Denies chest pain, shortness of breath, palpitations, hemoptysis, sputum production, fever, chills, N/V/D. Const alert, oriented x3 and no apparent distress HEENT normocephalic, head/scalp atraumatic and hearing grossly normal bilaterally Eyes PERRL, EOMs intact bilaterally and conjunctivae normal Neck no lymphadenopathy, supple and no JVD Resp normal respiratory effort, no retractions, no use of accessory muscles and clear to auscultation bilaterally Cardio regular rate, regular rhythm, no murmurs and no JVD GI normal to inspection, nondistended, normoactive bowel sounds, soft to palpation and non-tender Extremity normal to inspection, full ROM and no clubbing, cyanosis or edema Skin no rashes or lesions noted, no wounds and skin turgor normal Neuro CN's II-XII intact bilaterally Psych affect normal Weight / BMI Weight Weight: 199 lb 4.766 oz Body Mass Index (BMI) 29.5 ABG / Lab / Microbiology Data Result Diagrams: 06/09/21 04:43 06/09/21 04:43 Laboratory: Laboratory Results - last 24 hr 06/08/21 13:40: WBC 6.0, RBC 3.76 L, Hgb 12.1 L, Hct 35.2 L, MCV 93.6, MCH 32.2 H, MCHC 34.4, RDW Std Deviation 42.2, RDW Coeff of Diego 12.2, Plt Count 149 L, MPV 10.0, Immature Gran % (Auto) 0.300, Neut % (Auto) 73.3 H, Lymph % (Auto) 16.9 L, Tate % (Auto) 8.7, Eos % (Auto) 0.5, Baso % (Auto) 0.3, Absolute Neuts (auto) 4.4, Absolute Lymphs (auto) 1.01, Nucleated RBC % 0 06/08/21 13:40: Sodium 136, Potassium 4.4, Chloride 102, Carbon Dioxide 27.0, Anion Gap 7, BUN 31 H, Creatinine 1.71 H, Estim Creat Clear Calc 42.49, Est GFR (MDRD) Af Amer 52 L, Est GFR (MDRD) Non-Af 43 L, BUN/Creatinine Ratio 18.1, Glucose 92, Calcium 9.4, Troponin I High Sens 10 06/08/21 16:30: Troponin I High Sens 06/08/21 18:40: Troponin I High Sens 10 06/08/21 22:28: Troponin I High Sens 10 06/09/21 01:10: Urine Color YELLOW, Urine Clarity Clear, Urine pH 6.0, Ur Specific Redby 1.015, Urine Protein Negative, Urine Glucose (UA) Normal, Urine Ketones Negative, Urine Occult Blood Negative, Urine Nitrite Negative, Urine Bilirubin Negative, Urine Urobilinogen Normal, Ur Leukocyte Esterase Negative, Urine RBC 0 SEEN, Urine WBC 0 SEEN, Ur Squamous Epith Cells 0 SEEN, Urine Bacteria 0 SEEN, Urine Mucus 0 SEEN 06/09/21 04:43: WBC 5.6, RBC 3.32 L, Hgb 10.6 L, Hct 31.7 L, MCV 95.5 H, MCH 31.9, MCHC 33.4, RDW Std Deviation 43.3, RDW Coeff of Diego 12.4, Plt Count 128 L, MPV 10.5, Immature Gran % (Auto) 0.400, Neut % (Auto) 67.6, Lymph % (Auto) 21.4, Tate % (Auto) 8.5, Eos % (Auto) 1.6, Baso % (Auto) 0.5, Absolute Neuts (auto) 3.8, Absolute Lymphs (auto) 1.19, Nucleated RBC % 0 06/09/21 04:43: Sodium 137, Potassium 4.0, Chloride 106, Carbon Dioxide 23.0, Anion Gap 8, BUN 29 H, Creatinine 1.52 H, Estim Creat Clear Calc 46.25, Est GFR (MDRD) Af Amer 59 L, Est GFR (MDRD) Non-Af 49 L, BUN/Creatinine Ratio 19.1, Glucose 89, Calcium 8.6, Phosphorus 3.5, Magnesium 2.0, Total Bilirubin 0.50, AST 23, ALT 31, Alkaline Phosphatase 63, Total Protein 6.3 L, Albumin 3.1 L, Globulin 3.2, Albumin/Globulin Ratio 1.0, Triglycerides 73, Cholesterol 105, LDL Cholesterol 45, VLDL Cholesterol 15, HDL Cholesterol 45, TSH 1.18 Microbiology: Microbiology 06/08/21 15:25 Nasal Secretion SARS-CoV-2 Antigen (Rapid) - Final Radiography Diagnostic Testing: Radiology Impression Chest X-Ray 06/08/21 12:42 IMPRESSION: No radiographic evidence of acute cardiopulmonary disease. Electronically Signed: Sang Sanchez MD at 13:57 EDT Tel , Service support , D/C Instructions Discharge Diet: No restrictions Weight Bearing Status: Weight bearing as tolerated Call your doctor if you observe: Fever of 101 or Higher, Numbness or Tingling, Shortness of breath, Dizziness, Chest pain, Increased palpitations (irregular heartbeat) and Calf discomfort Please Follow Up With: Primary care provider When: Within the next two weeks. Meaningful Use Info Meaningful Use Diagnoses (Choose all that apply): None applicable Discharge Plan Admission Admit Date/Time: 06/08/21 15:05 Primary Reason for Your Visit: Chest pain Attending Provider: Joelle Lee Primary Care Provider: Aldo Nielsen NP Instructions Patient Instructions: ED Chest Pain, Noncardiac Discharge Orders/Prescriptions Prescriptions: Continued Fish Oil 1 EACH capsule 1 ea PO DAILY RF: 0 apple cider vinegar 600 MG capsule 600 mg PO DAILY RF: 0 aspirin 81 MG tablet,chewable 81 mg PO DAILY@0800 Qty: 0 RF: 0 tamsulosin 0.4 mg capsule 0.4 mg PO DAILY RF: 0 lisinopril-hydrochlorothiazide 20-12.5 mg tablet 1 tab PO DAILY RF: 0 sulfamethoxazole-trimethoprim 800-160 mg tablet 1 tab PO BID RF: 0 Therems-M 9 mg iron-400 mcg Tablet 1 tab PO DAILY RF: 0 melatonin 10 mg Tablet 10 mg PO QHS RF: 0 Referrals / Follow Up: Aldo Nielsen MATERIAL CONTROLLER, MATERIAL CONTROLLER-C [Primary Care Provider] - Within 2 Weeks Disposition Disposition (needs filled in before D/C Order can be placed): Home, Self Care Documented by User: Dr. Joelle Lee MD 06/09/21 13:35 Providers Date of Admission: 06/08/21 Date of Discharge: 06/09/21 Reason For Visit: CHEST PAIN Medications at Discharge Home Medications Fish Oil 1 ea PO DAILY 09/17/13 apple cider vinegar 600 mg PO DAILY 05/27/20 aspirin 81 mg PO DAILY@0800 #0 tab.chew 05/27/20 Therems-M 1 tab PO DAILY 06/08/21 lisinopril-hydrochlorothiazide 1 tab PO DAILY 06/08/21 melatonin 10 mg PO QHS 06/08/21 sulfamethoxazole-trimethoprim 1 tab PO BID 06/08/21 tamsulosin 0.4 mg PO DAILY 06/08/21 ABG / Lab / Microbiology Data Result Diagrams: 06/09/21 04:43 06/09/21 04:43 Discharge Plan Admission Admit Date/Time: 06/08/21 15:05 Primary Reason for Your Visit: Chest pain Attending Provider: Joelle Lee Primary Care Provider: Aldo Nielsen NP Instructions Patient Instructions: ED Chest Pain, Noncardiac Discharge Orders/Prescriptions Prescriptions: Continued Fish Oil 1 EACH capsule 1 ea PO DAILY RF: 0 apple cider vinegar 600 MG capsule 600 mg PO DAILY RF: 0 aspirin 81 MG tablet,chewable 81 mg PO DAILY@0800 Qty: 0 RF: 0 tamsulosin 0.4 mg capsule 0.4 mg PO DAILY RF: 0 lisinopril-hydrochlorothiazide 20-12.5 mg tablet 1 tab PO DAILY RF: 0 sulfamethoxazole-trimethoprim 800-160 mg tablet 1 tab PO BID RF: 0 Therems-M 9 mg iron-400 mcg Tablet 1 tab PO DAILY RF: 0 melatonin 10 mg Tablet 10 mg PO QHS RF: 0 Referrals / Follow Up: Aldo Nielsen NP, [employer]ER-C [Primary Care Provider] - Within 2 Weeks Disposition Disposition (needs filled in before D/C Order can be placed): Home, Self Care Charges/Coding Addendum Addendum: This patient was seen in conjunction with NAY Camarillo. I have independently interviewed and examined the patient and reviewed pertinent historical, laboratory, and other data. Please refer to NAY Camarillo's note for his patient's presentation, findings, and recommendations. I have reviewed and his note and concur with his documentation 65-year-old male who comes in with complaints of chest pain. Patient had multiple comorbidities. Was admitted to the ED. He was monitored in the hospital no acute event. He underwent nuclear stress test that was unremarkable. Patient was seen and examined. No acute events. Physical Exam: Gen: Comfortable, not pale, not jaundiced CVS:HS I +II, regular, no murmurs RESP: CTA GI: BS present and normal, soft, nontender, no palpable organs EXT:No edema Visit Charges OBSV E&M: 45610 Observation care discharge
--- NOTE | 2021-06-09 14:13 | CASEMGMT ---
Addendum entered by Corrine Lewis 06/09/21 15:42: All discharge paperwork faxed to TCU. No further needs, pt to TCU today. ANNABELLE Gaspar Original Note: SW spoke w/PT and OT, pt is not moving well, they are recommending SNF or rehab. Pt's insurance may cover SNF level of care, pt had expressed being agreeable to TCU or rehab. SW called Patrica, pt would be able to go to TCU. SW spoke w/pt, significant other, and daughter in room. Pt lives home w/significant other and is normally able to manage at home, but is having a tough time since being here in the hospital. Pt uses a walker and chair lift at his baseline. SW explained that pt would not qualify for rehab, but would qualify for SNF level of care. SW provided list of long term facilities in pt's preferred geographic area, complete w/quality and resource use data and that takes Medicare. Pt and family would like pt to go to TCU. SW spoke w/Patrica, precert is waived at this time. SW let pt and family know, and pt can go to TCU today. ANNABELLE Gaspar
--- NOTE | 2021-06-09 14:16 | PCM.TXEXTCAR ---
Diet 06/09/21 12:05 Diet: Cardiac - Heart Healthy Is pt able to select menu?: Yes Routine Orders/Code Status Keep PO Greater than or Equal to (%): 94 Routine Lab Work: CBC (within 3 days) and BMP (within 3 days) Code Status: Full Code Therapies Weight Bearing: Weight bearing as tolerated Physical Therapy: Eval and Treat Occupational Therapy: Eval and Treat Problem/Diagnosis (1) Acute kidney injury: Status: Acute (2) Chest pain: Status: Acute (3) Hypotension: Status: Acute (4) Chronic anemia: Status: Chronic (5) Thrombocytopenia: Status: Acute Allergies/Procedures Done in Hospital Allergies No Known Allergies Allergy (Verified 06/08/21 12:11) Procedures: Stress Test Type of Care/Length of Stay Estimated LOS: Convalescent Care Less Than 30 days Type of Care Needed: Skilled Rehab Potential: Good Prognosis: Good Additional Orders/Day of Discharge Day of Discharge: 06/09/21 Follow Up Care Please follow up with your Primary Care Physician in: within 1-2 weeks of discharge Please Follow Up With: Primary care provider Discharge Plan Admission Admit Date/Time: 06/08/21 15:05 Primary Reason for Your Visit: Chest pain Attending Provider: Joelle Lee Primary Care Provider: Aldo Nielsen NP Instructions Patient Instructions: ED Chest Pain, Noncardiac Discharge Orders/Prescriptions Prescriptions: Continued Fish Oil 1 EACH capsule 1 ea PO DAILY RF: 0 apple cider vinegar 600 MG capsule 600 mg PO DAILY RF: 0 aspirin 81 MG tablet,chewable 81 mg PO DAILY@0800 Qty: 0 RF: 0 tamsulosin 0.4 mg capsule 0.4 mg PO DAILY RF: 0 lisinopril-hydrochlorothiazide 20-12.5 mg tablet 1 tab PO DAILY RF: 0 sulfamethoxazole-trimethoprim 800-160 mg tablet 1 tab PO BID RF: 0 Therems-M 9 mg iron-400 mcg Tablet 1 tab PO DAILY RF: 0 melatonin 10 mg Tablet 10 mg PO QHS RF: 0 Referrals / Follow Up: Aldo Nielsen NP, FISHER QUAHOG-C [Primary Care Provider] - Within 2 Weeks Disposition Disposition (needs filled in before D/C Order can be placed): Home, Self Care
--- NOTE | 2021-06-09 16:37 | NURSING ---
Report called to Jacqueline sanchez in TCU.
== END 2021-06-09 11:38 | disposition skilled nursing facility (03) ==
LOC: ED 14:52 → PCU 15:33
PROVIDERS: Admitting Provider Internal Medicine; Emergency Provider Emergency Medicine; PCP Nurse Practitioner Family; Visit Provider Internal Medicine
DX: R07.89 Other chest pain (principal); N17.9 Acute kidney failure, unspecified; I10 Essential (primary) hypertension; R06.02 Shortness of breath; I95.9 Hypotension, unspecified; D69.6 Thrombocytopenia, unspecified; D64.9 Anemia, unspecified; Z86.73 Personal history of transient ischemic attack (TIA), and cerebral infarction without residual deficits; Z79.899 Other long term (current) drug therapy; Z79.82 Long term (current) use of aspirin; Z87.891 Personal history of nicotine dependence; G47.33 Obstructive sleep apnea (adult) (pediatric); N40.1 Benign prostatic hyperplasia with lower urinary tract symptoms; R33.8 Other retention of urine
CPT/HCPCS: 36415; 71045; 78452; 80048; 80053; 80061; 81001; 83735; 84100; 84443; 84484; 85025; 87426; 93005; 93017; 94660; 96360; 96361; 97163; 97167; 99218; 99251; 99285; 99406; A9500; J7030; A4216; G0378; G0463; J2785

== ENCOUNTER 2021-06-09 17:55 | Inpatient (IN) | payer MEDICARE, MEDICAID, SELFPAY ==
[2021-06-09 18:07] VITALS: BP 115/65; PULSE 78; RESP 18; RESP 20; TEMP 36.5; O2SAT 97; BMI 29.8
--- NOTE | 2021-06-09 19:59 | HP.PCM_ITS ---
HPI - General General Date of Admission: 06/09/21 HPI Narrative 06/08/2021 CHEKO COLEMAN, is a 65 Male who presented to [facility] Emergency Department with chest pain. Chest pain x 1 day, sudden while at rest, putting on CPAP mask. Substernal chest pain, shortness of breath. EKG okay, Chest X-ray okay. Creatinine 1.71, high sensitivity troponin normal. Hypotensive, IV Fluids given. 06/08/2021 Admit to Hospital. Chest pain resolved. Cycle cardiac enzymes, beta johnny for elevated blood pressure, high intensity statin, Aspirin. Stress test in AM. 06/09/2021 Pharmacologic stress test negative, EF > 70%. Patient not moving well. He uses walker, chair lift at baseline. PT/OT recommends TCU. 06/09/2021 Admit to TCU with debility, here for rehabilitation, strengthening, prior to discharge home with girlfriend. [facility] Medical History Hypertension TIA (transient ischemic attack) Home Medications Fish Oil 1 ea PO DAILY 09/17/13 [History Last Taken 06/07/21] apple cider vinegar 600 mg PO DAILY 05/27/20 [History Last Taken 2 Days Ago ~06/06/21] Therems-M 1 tab PO DAILY 06/08/21 [History Last Taken 06/07/21] lisinopril-hydrochlorothiazide 1 tab PO DAILY 06/08/21 [History Last Taken 06/08/21] melatonin 10 mg PO QHS 06/08/21 [History Last Taken 06/07/21] sulfamethoxazole-trimethoprim 1 tab PO BID 06/08/21 [History Last Taken 06/08/21] tamsulosin 0.4 mg PO DAILY 06/08/21 [History Last Taken 06/07/21] aspirin 81 mg PO DAILY@0800 06/09/21 [History Last Taken Unknown] Allergy/AdvReac Type Severity Reaction Status Date / Time No Known Allergies Allergy Verified 06/08/21 12:11 Family History Mother Diabetes Surgical History H/O cervical spine surgery History of cholecystectomy Social History (Updated 06/09/21 @ 20:[address] Jacky Webb MD) household members: significant other Smoking Status: Former smoker ROS Constitutional Constitutional: Denies chills, fever(s) or weight gain ENT HEENT: Denies headache(s), nasal congestion or nasal discharge Cardiovascular Cardiovascular: Denies chest pain or palpitations Respiratory/Chest Respiratory/Chest: Denies cough, excessive phlegm production or shortness of breath with exertion Gastrointestinal Gastrointestinal: Denies abdominal pain, nausea or vomiting Genitourinary Genitourinary: Denies dysuria Musculoskeletal Musculoskeletal: Denies joint pain or joint swelling Integumentary Integumentary: Denies rash or wounds Neurologic Neurologic: Denies focal weakness, numbness or tingling Psychiatric Psychiatric: Reports auditory hallucinations; Denies anxiety, depression, homicidal ideation or suicidal ideation Vital Signs Vital Signs Vital Signs: 06/09/21 18:07 Temperature 97.7 F L Temperature Source Temporal Pulse Rate 78 Respiratory Rate 18 Blood Pressure 115/65 Blood Pressure Mean 81 Blood Pressure Source Monitor Blood Pressure Position Semi-Fowlers Blood Pressure Location Left Arm Pulse Ox 97 Oxygen Delivery Method Room Air Weight Weight: 88.989 kg Body Mass Index (BMI) 29.8 Physical Exam Const alert and oriented x3 General Appearance: cooperative HEENT normocephalic Eyes PERRL and EOMs intact bilaterally Neck supple, no JVD and no carotid bruits Resp normal respiratory effort, normal air movement and clear to auscultation bilaterally Cardio regular rate and regular rhythm GI normal to inspection, nondistended, normoactive bowel sounds, non-tender and non-distended Extremity normal capillary refill General Extremity: Negative for edema Skin no rashes or lesions noted General Skin Exam: no breakdown Psych affect normal Appearance: appropriate Assessment & Plan Assessment/Plan (1) Debility: (2) Chest pain: (3) Sleep apnea: (4) Hypertension: (5) Tobacco abuse: (6) Transient ischemic attack: (7) Insomnia: (8) Benign prostate hyperplasia: PLAN: 65 year old male with below past medical history hospitalized for chest pain, ruled out for myocardial infarction, negative stress test, admitted to TCU with debility, here for rehabilitation, strengthening, prior to discharge home with girlfriend. * Debility - PT/OT. * Pain - Tylenol 1000mg Q6H prn pain (1-10). * Bowel - Miralax 17gm daily, Senna/colace 1 tablet twice daily, Dulcolax 10mg daily prn. * Adult immunization - Administer prevnar 13, pneumovax 23, fluvax, covid19 vaccine as appropriate. * DVT prophylaxis - Lovenox 30mg sc daily. * TIA - Aspirin 81mg daily. * Hypertension - Lisinopril 20mg daily, HCTZ 12.5mg daily. * Insomnia - Melatonin 10mg QHS. * Nutrition - MVI 1 tablet daily. * UTI - Bactrim DS 1 tablet twice daily x 7 days.
[2021-06-09] MEDS: MELATONIN 10 MG TABLET PO (22:01)
[2021-06-09] MEDS: Tamsulosin HCl 0.4 MG Capsule PO (22:07)
--- NOTE | 2021-06-09 23:22 | CPS ---
Patient did wear CPAP 8 25% hospital machine in PCU. Does wear a machine at home. Machine brought into room tonight, but patient refused. CRIMINAL LAWYER told patient that if possible, it may be more beneficial to bring in home machine for nightly usage. Hospital machine left in room at this time just in case patient changes his mind for tonight.
[2021-06-10 04:48] VITALS: BP 125/68; PULSE 72; RESP 18; TEMP 36.1; O2SAT 99
[2021-06-10] MEDS: Enoxaparin 30 MG/0.3 ML Syringe SC (04:57)
[2021-06-10] MEDS: Lisinopril 20 MG Tablet PO (04:57)
[2021-06-10] MEDS: hydroCHLOROthiazide 12.5mg 12.5 MG PO (04:57)
[2021-06-10 07:34] LABS: Absolute Lymphocyte Count 1.02 X10^3/uL (0.83-4.51); Absolute Neutrophil Count 3.2 X10^3/uL (2.0-7.7); Basophil# 0.02 X10^3/uL; Basophil% 0.4 % (0-1); Eosinophil# 0.09 X10^3/uL; Eosinophils% 1.9 % (0-5); Hemoglobin 11.2 g/dL (13.0-16.5); Lymphocyte # 1.02 X10^3/ul (0.83-4.51); Lymphocyte % 21.2 % (19-41); Mean Corpuscular Hgb 32.3 pg (27.0-32.0); Mean Corpuscular Volume 92.2 fL (80-94); Mean Platelet Vol. 10.3 fl (6.2-12.0); Monocyte# 0.43 X10^3/uL; Monocyte% 8.9 % (0-10); NRBC Flagged by Analyzer 0 % (0-5); Neutrophil # 3.24 X10^3/uL (2.7-7.7); Neutrophil % 67.4 % (47-70); Platelet Count 120 K/mm3 (150-450); RBC Distribution Width CV 12.1 % (11.6-14.6); RBC Distribution Width SD 41.1 fl (35.1-43.9); Red Blood Count 3.47 M/mm3 (4.6-6.2); White Blood Count 4.8 K/mm3 (4.4-11.0)
[2021-06-10 08:04] LABS: Anion Gap 5 (5-15); BUN 26 mg/dL (7-18); Calcium,Total 8.9 mg/dL (8.5-10.1); Chloride 106 mmol/L (98-107); EST Glomerular Filtration Rate 59 mL/min (>60); Est Glom Filt Rate - Afr Amer 71 mL/min (>60); Estimated Creatinine Clearance 54.08 ml/min; Glucose 96 mg/dL (74-106); Potassium 3.9 mmol/L (3.5-5.1); Sodium Level 137 mmol/L (136-145)
[2021-06-10] MEDS: Smz/Tmp Ds Tablet 1 TABLET PO ×2 (08:31→16:07)
[2021-06-10] MEDS: Multivitamins,Ther W-Minerals Tablet 1 TABLET PO (08:31)
[2021-06-10] MEDS: Aspirin 81 MG TAB.CHEW PO (08:31)
[2021-06-10] MEDS: Tuberculin,Purif.prot.deriv. 50 TU/ML Vial 0.1 ML ID (10:05)
[2021-06-10 17:01] VITALS: BP 109/57; PULSE 67; RESP 16; TEMP 36.4; O2SAT 96
--- NOTE | 2021-06-10 17:41 | NURSING ---
Per patient, oxygen is new to wear during the day. Patient on NC 3L O2, stating at 96%. RN decrease O2 2L 93%. I.S. provided and encouraged.
--- NOTE | 2021-06-10 18:16 | NURSING ---
Patient noted to voided frequently during shift. Patient feels urge to void and urinates about 200cc at a time.
--- NOTE | 2021-06-10 18:18 | NURSING ---
RN in patient's room with patient's sister. Patient sister inquiring about patient's health. Sister is wondering why patient is on oxygen, SPO2 explained. Sister questioning patient's blood pressure and medications. Patient's sister has asked to have a neurologist and urologist consulted. Will update Dr. Webb.
[2021-06-10] MEDS: Acetaminophen 500 MG Tablet 1000 MG PO (20:47)
[2021-06-10] MEDS: Tamsulosin HCl 0.4 MG Capsule PO (20:47)
[2021-06-10] MEDS: MELATONIN 10 MG TABLET PO (20:48)
[2021-06-10 22:45] VITALS: PULSE 70; RESP 14
[2021-06-10 23:20] VITALS: PULSE 67; RESP 16; O2SAT 96
[2021-06-11 03:10] VITALS: PULSE 62; RESP 15; O2SAT 95
[2021-06-11] MEDS: Enoxaparin 30 MG/0.3 ML Syringe SC (05:15)
[2021-06-11] MEDS: hydroCHLOROthiazide 12.5mg 12.5 MG PO (05:15)
[2021-06-11] MEDS: Lisinopril 20 MG Tablet PO (05:16)
[2021-06-11 05:30] VITALS: PULSE 79; RESP 15; O2SAT 97
[2021-06-11] MEDS: Multivitamins,Ther W-Minerals Tablet 1 TABLET PO (09:43)
[2021-06-11] MEDS: Smz/Tmp Ds Tablet 1 TABLET PO ×2 (09:43→17:33)
[2021-06-11] MEDS: Aspirin 81 MG TAB.CHEW PO (09:43)
--- NOTE | 2021-06-11 12:02 | NURSING ---
Patient has $20 bill for haircut, placed in lock box in room.
--- NOTE | 2021-06-11 13:17 | NURSING ---
Notified Dr Webb of family request for neurologist and urologist consult. Dr. Webb stated pt can follow-up with his PCP after discharge for requested consults.
--- NOTE | 2021-06-11 13:22 | NURSING ---
Notified Dr. Webb of patient's request to take Magnesium as he reports taking this at home. Received order for Magnesium cloride 128 mg qday. Order repeated back.
[2021-06-11 14:47] VITALS: BP 122/71; PULSE 84; RESP 20; TEMP 36; O2SAT 99
[2021-06-11] MEDS: Tamsulosin HCl 0.4 MG Capsule PO (21:25)
[2021-06-11] MEDS: MELATONIN 10 MG TABLET PO (21:25)
[2021-06-11] MEDS: Magnesium Chloride 64 MG Delay Rel.Tablet 128 MG PO (21:39)
[2021-06-12 04:50] VITALS: BP 119/65; PULSE 77
[2021-06-12] MEDS: hydroCHLOROthiazide 12.5mg 12.5 MG PO (04:54)
[2021-06-12] MEDS: Lisinopril 20 MG Tablet PO (04:54)
[2021-06-12] MEDS: Enoxaparin 30 MG/0.3 ML Syringe SC (04:54)
[2021-06-12] MEDS: Acetaminophen 500 MG Tablet 1000 MG PO ×2 (04:57→15:25)
[2021-06-12] MEDS: Smz/Tmp Ds Tablet 1 TABLET PO ×2 (08:08→18:00)
[2021-06-12] MEDS: Aspirin 81 MG TAB.CHEW PO (08:08)
[2021-06-12] MEDS: Multivitamins,Ther W-Minerals Tablet 1 TABLET PO (08:08)
--- NOTE | 2021-06-12 11:33 | NURSING ---
$20 DOLLARS THAT WAS IN PT MED BOX WAS GIVEN BACK TO GIRL FRIEND DUE TO PT IN QUARANTINE AND CANT HAVE HAIR CUT.
[2021-06-12 13:44] VITALS: BP 123/64; PULSE 86; RESP 16; TEMP 36.1; O2SAT 98
--- NOTE | 2021-06-12 14:26 | NURSING ---
ORDER PUT IN FOR BUILD UP UTENSILS.
[2021-06-12] MEDS: MELATONIN 10 MG TABLET PO (20:20)
[2021-06-12] MEDS: Tamsulosin HCl 0.4 MG Capsule PO (20:20)
[2021-06-12] MEDS: Magnesium Chloride 64 MG Delay Rel.Tablet 128 MG PO (20:20)
--- NOTE | 2021-06-12 21:19 | NURSING ---
Spoke w/ Dr. Webb regarding pt's request to take own supply of MagSRT 240 mg caps, 4 po at hs for muscle cramps and restless legs. He would like this nurse to consult with pharmacy to determine if dose of home supplement is equivalent to current ordered dose at hs. Plan to send supply of pt's medications to the pharmacy sometime this shift.
[2021-06-13] MEDS: Acetaminophen 500 MG Tablet 1000 MG PO ×2 (03:19→21:12)
[2021-06-13] MEDS: Enoxaparin 30 MG/0.3 ML Syringe SC (04:11)
[2021-06-13] MEDS: Lisinopril 20 MG Tablet PO (04:13)
[2021-06-13] MEDS: Senna/Docusate Sodium 1 Tablet PO (04:13)
[2021-06-13] MEDS: hydroCHLOROthiazide 12.5mg 12.5 MG PO (04:14)
[2021-06-13 04:17] VITALS: BP 106/57; PULSE 78; RESP 16
[2021-06-13] MEDS: Multivitamins,Ther W-Minerals Tablet 1 TABLET PO (08:34)
[2021-06-13] MEDS: Aspirin 81 MG TAB.CHEW PO (08:34)
[2021-06-13] MEDS: Smz/Tmp Ds Tablet 1 TABLET PO ×2 (08:34→17:18)
--- NOTE | 2021-06-13 13:49 | PCM.PN.RX ---
Progress Note - Pharmacy Subjective: TCU Admission Objective: Allergies No Known Allergies Allergy (Verified 06/08/21 12:11) Current Medications Generic Name Dose Route Start Last Admin Trade Name Berkley PRN Reason Stop Dose Admin Acetaminophen 1,000 mg 06/09/21 20:22 06/13/21 03:19 Acetaminophen 500 Mg Tablet PO 1,000 mg Q6H PRN PRN Administration Pain Score 1-10 Aspirin 81 mg 06/10/21 08:00 06/13/21 08:34 Aspirin 81 Mg Tab.Chew PO 81 mg 0800 NESS Administration Bisacodyl 10 mg 06/09/21 20:22 Bisacodyl 5 Mg Tablet PO DAILY PRN Constipation Enoxaparin Sodium 30 mg 06/10/21 06:00 06/13/21 04:11 Enoxaparin 30 Mg/0.3 Ml Syringe SC 30 mg DAILY@0600 NESS Administration Hydrochlorothiazide 12.5 mg 06/10/21 06:00 06/13/21 04:14 Hydrochlorothiazide 12.5mg PO 12.5 mg DAILY NESS Administration Lisinopril 20 mg 06/10/21 06:00 06/13/21 04:13 Lisinopril 20 Mg Tablet PO 20 mg DAILY NESS Administration Magnesium Chloride 128 mg 06/11/21 22:00 06/12/21 20:20 Magnesium Chloride 64 Mg Delay Rel.Tablet PO 128 mg QHS NESS Administration Melatonin 10 mg 06/09/21 22:00 06/12/21 20:20 Melatonin 10 Mg Tablet PO 10 mg QHS NESS Administration Multivitamins/Minerals 1 tablet 06/10/21 08:00 06/13/21 08:34 Multivitamins,Ther W-Minerals Tablet PO 1 tablet BREAKFAST NESS Administration Polyethylene Glycol 17 gm 06/10/21 06:00 06/13/21 04:14 Polyethylene Glycol 3350 17 Gm Packet PO Not Given DAILY NESS Senna/Docusate Sodium 1 tablet 06/09/21 20:30 06/13/21 04:13 Senna/Docusate Sodium 1 Tablet PO 1 tablet BID NESS Administration Tamsulosin HCl 0.4 mg 06/10/21 22:00 06/12/21 20:20 Tamsulosin Hcl 0.4 Mg Capsule PO 0.4 mg QHS NESS Administration Trimethoprim/Sulfamethoxazole 1 tablet 06/10/21 08:00 06/13/21 08:34 Smz/Tmp Ds Tablet PO 06/17/21 08:01 1 tablet 0800,1700 NESS Administration Tuberculin PPD 0.1 ml 06/17/21 10:00 Tuberculin,Purif.Prot.Deriv. 50 Tu/Ml Vial ID 06/17/21 10:01 X1 ONE Problem List (Last Reviewed 06/09/21 @ 20:[address] Jacky Webb MD) Benign prostate hyperplasia (Acute) Insomnia (Acute) Transient ischemic attack (Acute) Tobacco abuse (Acute) Hypertension (Chronic) Sleep apnea (Acute) Chest pain (Acute) Debility (Acute) Vital Signs Temp Pulse Resp BP Pulse Ox 96.9 F L 78 16 106/57 L 98 06/12/21 13:44 06/13/21 04:17 06/13/21 04:17 06/13/21 04:17 06/12/21 13:44 Oxygen Flow Rate (L/min) 2 Oxygen Delivery Method Room Air Weight: 88.989 kg Body Mass Index (BMI) 29.8 Sodium 137 mmol/L (136-145) 06/10/21 07:18 Potassium 3.9 mmol/L (3.5-5.1) 06/10/21 07:18 Chloride 106 mmol/L (98-107) 06/10/21 07:18 Carbon Dioxide 26.0 mmol/L (21.0-32.0) 06/10/21 07:18 Anion Gap 5 (5-15) 06/10/21 07:18 BUN 26 mg/dL (7-18) H 06/10/21 07:18 Creatinine 1.30 mg/dL (0.70-1.30) 06/10/21 07:18 Est GFR (MDRD) Af Amer 71 mL/min (>60) 06/10/21 07:18 Est GFR (MDRD) Non-Af 59 mL/min (>60) L 06/10/21 07:18 BUN/Creatinine Ratio 20.0 RATIO (10-20) 06/10/21 07:18 Glucose 96 mg/dL (74-106) 06/10/21 07:18 Assessment/Plan: 1. Pain: acetaminophen 1000mg PO Q6H PRN pain 1-10. Please continue to monitor for increased pain. 2. DVT prophylaxis: enoxaparin 40mg SC daily. Dose increased to 40mg based on CrCl >30ml/min. Please continue to monitor for S/S of bleeding, hemoglobin (last 11.2g/dL), platelets (last 120,000) and renal function. 3. UTI: Bactrim DS 1T PO BID thru 06/17/21. Please continue to monitor for S/S of infection, renal function, diarrhea and potassium (last 3.9mmol/L). 4. TIA: aspirin 81mg PO daily. Please continue to monitor for S/S of bleeding and hemoglobin (last 11.2g/dL). 5. Hypertension: lisinopril 20mg PO daily and hydrochlorothiazide 12.5mg PO daily. Please continue to monitor for renal function, BP (last 106/57), potassium, cough, sodium (last 137mmol/L). 6. Insomnia: melatonin 10mg PO QHS. Please continue to monitor for excessive drowsiness. 7. Nutrition: multivitamin with minerals 1T PO breakfast. Please continue to monitor. Psychotropic Medications: None *Unnecessary Medications: magnesium chloride 128mg PO QHS and tamsulosin 0.4 mg PO QHS. I did not see a documented indication for these medication. Please consider adding indications or stopping medications as clinically appropriate. Please continue to monitor magnesium levels (last 2 mg/dL) and BP (last 106/57). *Bowel Regimen: Miralax 17gm PO daily, senna/docusate 1T PO BID and bisacodyl 10mg PO daily PRN constipation. Patient has refused 4/4 doses of Miralax and 7/8 doses of senna/docusate. Please consider changing Miralax and senna/docusate from scheduled to PRN. Thanks. Please continue to monitor for constipation. Date of Note:: 06/13/21
[2021-06-13 13:55] VITALS: BP 110/64; PULSE 94; RESP 16; TEMP 36.8; O2SAT 100
--- NOTE | 2021-06-13 16:33 | CASEMGMT ---
Social Work See attached assessment for complete details. Unable to complete MOLST with patient as patient is unable to sign. Patient verbally expressing Full Code as code status, patient chart does reflect this. Patient plans to return to home with significant other. This geriatric social work professor educated patient on insurance update process and next insurance update being on 06/15/2021. Will continue to follow. Rafi HEALY, TATUM-S
[2021-06-13] MEDS: Tamsulosin HCl 0.4 MG Capsule PO (21:11)
[2021-06-13] MEDS: Magnesium Chloride 64 MG Delay Rel.Tablet 128 MG PO (21:11)
[2021-06-13] MEDS: MELATONIN 10 MG TABLET PO (21:11)
[2021-06-14] MEDS: Acetaminophen 500 MG Tablet 1000 MG PO ×3 (03:36→21:08)
[2021-06-14] MEDS: Enoxaparin 40 MG/0.4 ML Syringe SC (06:06)
--- NOTE | 2021-06-14 06:29 | CPS ---
pt did not wear bipap last night-did wear 2 l/m via nc
[2021-06-14 06:38] VITALS: O2SAT 93
[2021-06-14] MEDS: Aspirin 81 MG TAB.CHEW PO (08:18)
[2021-06-14] MEDS: Multivitamins,Ther W-Minerals Tablet 1 TABLET PO (08:18)
--- NOTE | 2021-06-14 08:43 | NURSING ---
Resident educated on the COVID 19 Vaccine and does not want to receive it.
--- NOTE | 2021-06-14 09:31 | CASEMGMT ---
Social Work Plan of Care meeting held. Patient present as well as patient girlfriend, Aura. Patient plans to discharge to home with girlfriend at time of discharge. Patient with insurance update due on 06/15/2021. This social service technician educated patient and Aura on insurance approval process and that continued stay approval is not guaranteed. Patient goals are to be able to manage own ADL's and wipe myself. Patient is currently needing assistance for ADL's and is not able to manage toileting hygiene. Team recommending for patient to continue with care and treatment on the Transitional Care Unit. Will continue to follow. Rafi HEALY, TATUM-S
--- NOTE | 2021-06-14 09:57 | NURSING ---
Pt ringing out approx Q30m to void inhibiting adequate sleep, Dr. smith updated and new order to increase flomax to 0.8mg, and male purewick QHS. Pt updated and expressed concern that his sister asked for his blood pressure medication to be discontinued yesterday stating my sister over steps and thinks she is a doctor or something and I am really worried about my blood pressure now. I wish she would stay out of it. This nurse reassured patient that we would monitor his blood pressure and could restart the medications if they are deemed necessary, pt thanked this nurse for listening to his concerns.
[2021-06-14 10:45] VITALS: PULSE 81; RESP 18; O2SAT 97
[2021-06-14 16:39] VITALS: BP 118/82; PULSE 96; RESP 16; TEMP 36.2; O2SAT 95
--- NOTE | 2021-06-14 20:35 | NURSING ---
Pt assisted to BR,voided in toilet then asked to get ready for bed, refused offer to get washed up, stated I washed up this morning and I'll get a shower in the morning. Assisted to change into gown, pt requested purewick be placed for the night. When this nurse helped him take his underwear off he stated that's rape you know.and laughed. Then he stated I'm just kidding, I have to give you nurses a hard time. Assisted to place purewick, extra pillow given and fresh water given per request, call light in place.
[2021-06-14] MEDS: Tamsulosin HCl 0.4 MG Capsule 0.8 MG PO (21:07)
[2021-06-14] MEDS: Magnesium Chloride 64 MG Delay Rel.Tablet 128 MG PO (21:07)
[2021-06-14] MEDS: MELATONIN 10 MG TABLET PO (21:07)
[2021-06-15] MEDS: Acetaminophen 500 MG Tablet 1000 MG PO ×2 (05:36→21:33)
[2021-06-15] MEDS: Enoxaparin 40 MG/0.4 ML Syringe SC (05:39)
[2021-06-15] MEDS: Multivitamins,Ther W-Minerals Tablet 1 TABLET PO (08:31)
[2021-06-15] MEDS: Aspirin 81 MG TAB.CHEW PO (08:31)
--- NOTE | 2021-06-15 09:49 | CASEMGMT ---
Social Work Brief interview for mental status (BIMS) and resident mood assessment (PHQ-9) completed on this day. BIMS score . PHQ-9 score 12/31 Rafi HEALY, MONAS
--- NOTE | 2021-06-15 13:54 | MDS.RN ---
Completed pain interview for JEFF 06/16/21
[2021-06-15 14:14] VITALS: BP 121/69; PULSE 81; RESP 18; TEMP 36.6; O2SAT 97
--- NOTE | 2021-06-15 15:36 | CASEMGMT ---
Social Work Met with patient in room. This social media job titles updated patient that continued stay was approved with next update due on 06/22/2021 and projected discharge of 06/25/2021, patient voiced understanding. Will continue to follow. Rafi HEALY, TATUM-S
[2021-06-15] MEDS: Senna/Docusate Sodium 1 Tablet PO (17:11)
--- NOTE | 2021-06-15 18:59 | NURSING ---
AT 12:30PM PT REQUESTING SCHEDULED TYLENOL AND SOME THING FOR HIS RESTLESS LEGS. RN AWARE AND NOTE LEFT FOR .
[2021-06-15] MEDS: MELATONIN 10 MG TABLET PO (21:33)
[2021-06-15] MEDS: Tamsulosin HCl 0.4 MG Capsule 0.8 MG PO (21:33)
[2021-06-15] MEDS: Magnesium Chloride 64 MG Delay Rel.Tablet 128 MG PO (21:33)
[2021-06-15] MEDS: traMADol 50 MG Tablet PO (21:34)
[2021-06-16] MEDS: Enoxaparin 40 MG/0.4 ML Syringe SC (05:49)
[2021-06-16] MEDS: Senna/Docusate Sodium 1 Tablet PO ×2 (05:49→17:41)
[2021-06-16 07:44] VITALS: O2SAT 92
[2021-06-16] MEDS: Aspirin 81 MG TAB.CHEW PO (08:11)
[2021-06-16] MEDS: Multivitamins,Ther W-Minerals Tablet 1 TABLET PO (08:11)
[2021-06-16] MEDS: Acetaminophen 500 MG Tablet 1000 MG PO (08:22)
[2021-06-16 11:44] VITALS: BP 129/62; PULSE 93; RESP 16; TEMP 36.3; O2SAT 96
[2021-06-16 20:29] VITALS: PULSE 74; RESP 16; O2SAT 96
[2021-06-16] MEDS: Tamsulosin HCl 0.4 MG Capsule 0.8 MG PO (20:30)
[2021-06-16] MEDS: traMADol 50 MG Tablet PO (20:30)
[2021-06-16] MEDS: Baclofen 10 MG Tablet PO (20:30)
[2021-06-16] MEDS: MELATONIN 10 MG TABLET PO (20:30)
[2021-06-16] MEDS: Magnesium Chloride 64 MG Delay Rel.Tablet 128 MG PO (20:30)
[2021-06-17] MEDS: Enoxaparin 40 MG/0.4 ML Syringe SC (06:45)
[2021-06-17 08:25] VITALS: O2SAT 96
[2021-06-17 08:31] LABS: Absolute Lymphocyte Count 0.95 X10^3/uL (0.83-4.51); Basophil# 0.03 X10^3/uL; Basophil% 0.5 % (0-1); Eosinophil# 0.12 X10^3/uL; Eosinophils% 2.2 % (0-5); Hematocrit 33.8 % (40-54); Hemoglobin 11.5 g/dL (13.0-16.5); Lymphocyte # 0.95 X10^3/ul (0.83-4.51); Lymphocyte % 17.2 % (19-41); Mean Corpuscular Hgb 32.1 pg (27.0-32.0); Mean Corpuscular Volume 94.4 fL (80-94); Monocyte# 0.47 X10^3/uL; Monocyte% 8.5 % (0-10); NRBC Flagged by Analyzer 0 % (0-5); Neutrophil # 3.95 X10^3/uL (2.7-7.7); Neutrophil % 71.4 % (47-70); Platelet Count 137 K/mm3 (150-450); RBC Distribution Width SD 41.8 fl (35.1-43.9); Red Blood Count 3.58 M/mm3 (4.6-6.2); White Blood Count 5.5 K/mm3 (4.4-11.0)
[2021-06-17] MEDS: Senna/Docusate Sodium 1 Tablet PO ×2 (08:46→17:49)
[2021-06-17] MEDS: Multivitamins,Ther W-Minerals Tablet 1 TABLET PO (08:47)
[2021-06-17] MEDS: Aspirin 81 MG TAB.CHEW PO (08:47)
[2021-06-17 09:00] VITALS: PULSE 102; RESP 18; O2SAT 97
[2021-06-17 09:01] LABS: Anion Gap 6 (5-15); BUN 34 mg/dL (7-18); BUN/Creat Ratio 30.6 RATIO (10-20); Calcium,Total 9.3 mg/dL (8.5-10.1); Chloride 102 mmol/L (98-107); Creatinine, Serum 1.11 mg/dL (0.70-1.30); EST Glomerular Filtration Rate 70 mL/min (>60); Est Glom Filt Rate - Afr Amer 85 mL/min (>60); Estimated Creatinine Clearance 63.33 ml/min; Glucose 95 mg/dL (74-106); Potassium 4.5 mmol/L (3.5-5.1); Sodium Level 134 mmol/L (136-145)
[2021-06-17] MEDS: Tuberculin,Purif.prot.deriv. 50 TU/ML Vial 0.1 ML ID (13:05)
[2021-06-17 16:32] VITALS: BP 111/60; PULSE 89; RESP 18; TEMP 36; O2SAT 97
[2021-06-17] MEDS: Acetaminophen 500 MG Tablet 1000 MG PO (17:51)
[2021-06-17] MEDS: Baclofen 10 MG Tablet PO (22:06)
[2021-06-17] MEDS: traMADol 50 MG Tablet PO (22:06)
[2021-06-17] MEDS: Tamsulosin HCl 0.4 MG Capsule 0.8 MG PO (22:07)
[2021-06-17] MEDS: Magnesium Chloride 64 MG Delay Rel.Tablet 128 MG PO (22:07)
[2021-06-17] MEDS: MELATONIN 10 MG TABLET PO (22:07)
[2021-06-18] MEDS: Enoxaparin 40 MG/0.4 ML Syringe SC (06:04)
[2021-06-18] MEDS: Multivitamins,Ther W-Minerals Tablet 1 TABLET PO (08:41)
[2021-06-18] MEDS: Aspirin 81 MG TAB.CHEW PO (08:41)
[2021-06-18 12:35] VITALS: O2SAT 95
[2021-06-18 14:03] VITALS: BP 140/65; PULSE 90; RESP 18; TEMP 36; O2SAT 97
[2021-06-18 14:05] VITALS: PULSE 92; RESP 18; O2SAT 96
[2021-06-18] MEDS: Senna/Docusate Sodium 1 Tablet PO (16:32)
[2021-06-18] MEDS: Baclofen 10 MG Tablet PO (21:31)
[2021-06-18] MEDS: traMADol 50 MG Tablet PO (21:31)
[2021-06-18] MEDS: Tamsulosin HCl 0.4 MG Capsule 0.8 MG PO (21:32)
[2021-06-18] MEDS: Magnesium Chloride 64 MG Delay Rel.Tablet 128 MG PO (21:32)
[2021-06-18] MEDS: MELATONIN 10 MG TABLET PO (21:32)
[2021-06-19] MEDS: Enoxaparin 40 MG/0.4 ML Syringe SC (05:02)
[2021-06-19] MEDS: Acetaminophen 500 MG Tablet 1000 MG PO (07:45)
[2021-06-19] MEDS: Multivitamins,Ther W-Minerals Tablet 1 TABLET PO (07:45)
[2021-06-19] MEDS: Aspirin 81 MG TAB.CHEW PO (07:45)
[2021-06-19] MEDS: traMADol 50 MG Tablet PO (13:10)
[2021-06-19 16:00] VITALS: BP 147/85; PULSE 85; RESP 18; TEMP 36; O2SAT 98
[2021-06-19] MEDS: Senna/Docusate Sodium 1 Tablet PO (16:44)
[2021-06-19] MEDS: Tamsulosin HCl 0.4 MG Capsule 0.8 MG PO (21:03)
[2021-06-19] MEDS: Magnesium Chloride 64 MG Delay Rel.Tablet 128 MG PO (21:04)
[2021-06-19] MEDS: MELATONIN 10 MG TABLET PO (21:04)
[2021-06-19] MEDS: Baclofen 10 MG Tablet PO (21:06)
[2021-06-20] MEDS: Senna/Docusate Sodium 1 Tablet PO ×2 (06:34→17:17)
[2021-06-20] MEDS: Enoxaparin 40 MG/0.4 ML Syringe SC (06:34)
[2021-06-20] MEDS: Acetaminophen 500 MG Tablet 1000 MG PO ×2 (06:57→14:36)
[2021-06-20 07:33] VITALS: O2SAT 98
[2021-06-20] MEDS: Aspirin 81 MG TAB.CHEW PO (08:09)
[2021-06-20] MEDS: Multivitamins,Ther W-Minerals Tablet 1 TABLET PO (08:09)
--- NOTE | 2021-06-20 10:16 | MDS.RN ---
Information for the mds was obtained from review of the clinical record, interview of resident, staff, and direct observation of resident' care.
[2021-06-20 14:09] VITALS: BP 128/81; PULSE 87; RESP 19; TEMP 36.3; O2SAT 96
[2021-06-20] MEDS: Tamsulosin HCl 0.4 MG Capsule 0.8 MG PO (20:38)
[2021-06-20] MEDS: MELATONIN 10 MG TABLET PO (20:39)
[2021-06-20] MEDS: Baclofen 10 MG Tablet PO (20:48)
[2021-06-20] MEDS: Magnesium Chloride 64 MG Delay Rel.Tablet 128 MG PO (20:48)
[2021-06-21] MEDS: Enoxaparin 40 MG/0.4 ML Syringe SC (06:09)
[2021-06-21] MEDS: Acetaminophen 500 MG Tablet 1000 MG PO (06:11)
[2021-06-21 07:29] VITALS: O2SAT 95
[2021-06-21] MEDS: Aspirin 81 MG TAB.CHEW PO (07:47)
[2021-06-21] MEDS: Multivitamins,Ther W-Minerals Tablet 1 TABLET PO (07:47)
[2021-06-21 15:40] VITALS: BP 123/87; PULSE 77; RESP 18; TEMP 36.3; O2SAT 96
[2021-06-21] MEDS: MELATONIN 10 MG TABLET PO (21:22)
[2021-06-21] MEDS: Tamsulosin HCl 0.4 MG Capsule 0.8 MG PO (21:22)
[2021-06-21] MEDS: Baclofen 10 MG Tablet PO (21:22)
[2021-06-21] MEDS: traMADol 50 MG Tablet PO (21:25)
[2021-06-22] MEDS: Enoxaparin 40 MG/0.4 ML Syringe SC (05:30)
[2021-06-22 08:32] VITALS: O2SAT 93
[2021-06-22] MEDS: Aspirin 81 MG TAB.CHEW PO (09:09)
[2021-06-22] MEDS: Multivitamins,Ther W-Minerals Tablet 1 TABLET PO (09:09)
[2021-06-22 09:30] VITALS: PULSE 93; RESP 18; O2SAT 96
[2021-06-22] MEDS: Acetaminophen 500 MG Tablet 1000 MG PO (13:49)
[2021-06-22 14:10] VITALS: BP 125/69; PULSE 77; RESP 14; TEMP 36.7; O2SAT 96
[2021-06-22] MEDS: Senna/Docusate Sodium 1 Tablet PO (17:51)
[2021-06-22] MEDS: traMADol 50 MG Tablet PO (20:26)
[2021-06-22] MEDS: Baclofen 10 MG Tablet PO (20:27)
[2021-06-22] MEDS: MELATONIN 10 MG TABLET PO (20:27)
[2021-06-22] MEDS: Tamsulosin HCl 0.4 MG Capsule 0.8 MG PO (20:27)
[2021-06-22] MEDS: Magnesium Chloride 64 MG Delay Rel.Tablet 128 MG PO (20:29)
[2021-06-23] MEDS: Enoxaparin 40 MG/0.4 ML Syringe SC (05:04)
[2021-06-23] MEDS: Senna/Docusate Sodium 1 Tablet PO ×2 (05:04→17:28)
[2021-06-23] MEDS: Aspirin 81 MG TAB.CHEW PO (08:22)
[2021-06-23] MEDS: Multivitamins,Ther W-Minerals Tablet 1 TABLET PO (08:22)
[2021-06-23 09:15] VITALS: PULSE 101; RESP 18; O2SAT 98
[2021-06-23 16:00] VITALS: BP 137/86; PULSE 81; RESP 17; TEMP 36.7; O2SAT 95
[2021-06-23] MEDS: Tamsulosin HCl 0.4 MG Capsule 0.8 MG PO (21:29)
[2021-06-23] MEDS: MELATONIN 10 MG TABLET PO (21:29)
[2021-06-23] MEDS: traMADol 50 MG Tablet PO (21:43)
[2021-06-23] MEDS: Baclofen 10 MG Tablet PO (21:43)
[2021-06-23] MEDS: Magnesium Chloride 64 MG Delay Rel.Tablet 128 MG PO (23:23)
[2021-06-24 06:54] LABS: Absolute Neutrophil Count 2.6 X10^3/uL (2.0-7.7); Basophil# 0.02 X10^3/uL; Basophil% 0.5 % (0-1); Eosinophil# 0.09 X10^3/uL; Eosinophils% 2.3 % (0-5); Hematocrit 28.6 % (40-54); Hemoglobin 9.9 g/dL (13.0-16.5); Lymphocyte % 20.6 % (19-41); Mean Corp Hgb Conc 34.6 g/dL (32-36); Mean Corpuscular Volume 95.3 fL (80-94); Mean Platelet Vol. 9.9 fl (6.2-12.0); Monocyte# 0.37 X10^3/uL; Monocyte% 9.5 % (0-10); NRBC Flagged by Analyzer 0 % (0-5); Neutrophil % 66.8 % (47-70); Platelet Count 125 K/mm3 (150-450); RBC Distribution Width SD 41.3 fl (35.1-43.9); White Blood Count 3.9 K/mm3 (4.4-11.0)
[2021-06-24 07:20] LABS: Anion Gap 7 (5-15); BUN 29 mg/dL (7-18); BUN/Creat Ratio 26.9 RATIO (10-20); Calcium,Total 9.1 mg/dL (8.5-10.1); Chloride 105 mmol/L (98-107); Creatinine, Serum 1.08 mg/dL (0.70-1.30); EST Glomerular Filtration Rate 73 mL/min (>60); Est Glom Filt Rate - Afr Amer 88 mL/min (>60); Estimated Creatinine Clearance 65.09 ml/min; Glucose 90 mg/dL (74-106); Potassium 3.7 mmol/L (3.5-5.1); Sodium Level 138 mmol/L (136-145)
[2021-06-24] MEDS: Aspirin 81 MG TAB.CHEW PO (08:59)
[2021-06-24] MEDS: Multivitamins,Ther W-Minerals Tablet 1 TABLET PO (08:59)
[2021-06-24] MEDS: Acetaminophen 500 MG Tablet 1000 MG PO (09:04)
[2021-06-24] MEDS: Enoxaparin 40 MG/0.4 ML Syringe SC (09:52)
[2021-06-24 16:00] VITALS: BP 143/87; PULSE 83; RESP 20; TEMP 36.2; O2SAT 97
[2021-06-24] MEDS: Senna/Docusate Sodium 1 Tablet PO (16:30)
[2021-06-24 19:28] VITALS: PULSE 78; RESP 16; O2SAT 98
[2021-06-24] MEDS: Magnesium Chloride 64 MG Delay Rel.Tablet 128 MG PO (20:51)
[2021-06-24] MEDS: traMADol 50 MG Tablet PO (20:51)
[2021-06-24] MEDS: MELATONIN 10 MG TABLET PO (20:51)
[2021-06-24] MEDS: Baclofen 10 MG Tablet PO (20:51)
[2021-06-24] MEDS: Tamsulosin HCl 0.4 MG Capsule 0.8 MG PO (20:51)
[2021-06-25] MEDS: Enoxaparin 40 MG/0.4 ML Syringe SC (05:38)
[2021-06-25] MEDS: Aspirin 81 MG TAB.CHEW PO (07:35)
[2021-06-25] MEDS: Multivitamins,Ther W-Minerals Tablet 1 TABLET PO (07:35)
[2021-06-25] MEDS: Acetaminophen 500 MG Tablet 1000 MG PO (07:37)
[2021-06-25 15:34] VITALS: BP 130/98; PULSE 74; RESP 16; TEMP 36.6; O2SAT 97
[2021-06-25] MEDS: Tamsulosin HCl 0.4 MG Capsule 0.8 MG PO (20:59)
[2021-06-25] MEDS: traMADol 50 MG Tablet PO (20:59)
[2021-06-25] MEDS: MELATONIN 10 MG TABLET PO (21:00)
[2021-06-25] MEDS: Magnesium Chloride 64 MG Delay Rel.Tablet 128 MG PO (21:04)
[2021-06-26 05:34] LABS: Hemoglobin 9.6 g/dL (13.0-16.5)
[2021-06-26] MEDS: Aspirin 81 MG TAB.CHEW PO (07:15)
[2021-06-26] MEDS: Enoxaparin 40 MG/0.4 ML Syringe SC (07:15)
[2021-06-26] MEDS: Multivitamins,Ther W-Minerals Tablet 1 TABLET PO (07:15)
[2021-06-26] MEDS: Acetaminophen 500 MG Tablet 1000 MG PO (09:08)
[2021-06-26] MEDS: Iron Polysaccharide Complex 150 MG CAPSULE PO (09:13)
[2021-06-26] MEDS: traMADol 50 MG Tablet PO ×2 (11:03→21:40)
[2021-06-26 16:39] VITALS: BP 141/81; PULSE 80; RESP 18; TEMP 36.3; O2SAT 96
[2021-06-26 20:45] VITALS: PULSE 77; RESP 18; O2SAT 99
[2021-06-26] MEDS: Nystatin Powder 15gm Bottle 1 APPLIC TOPICAL (21:35)
[2021-06-26] MEDS: Menthol/Lanolin/Calamine/Znox 113 GM Tube 1 APPLIC TOPICAL (21:35)
[2021-06-26] MEDS: Magnesium Chloride 64 MG Delay Rel.Tablet 128 MG PO (21:36)
[2021-06-26] MEDS: Tamsulosin HCl 0.4 MG Capsule 0.8 MG PO (21:36)
[2021-06-26] MEDS: MELATONIN 10 MG TABLET PO (21:36)
[2021-06-26] MEDS: Baclofen 10 MG Tablet PO (21:40)
[2021-06-27] MEDS: Aspirin 81 MG TAB.CHEW PO (08:10)
[2021-06-27] MEDS: Multivitamins,Ther W-Minerals Tablet 1 TABLET PO (08:10)
[2021-06-27] MEDS: Iron Polysaccharide Complex 150 MG CAPSULE PO (08:10)
[2021-06-27] MEDS: Menthol/Lanolin/Calamine/Znox 113 GM Tube 1 APPLIC TOPICAL ×2 (08:14→16:13)
[2021-06-27] MEDS: Nystatin Powder 15gm Bottle 1 APPLIC TOPICAL ×2 (08:14→16:14)
--- NOTE | 2021-06-27 15:07 | CASEMGMT ---
Addendum entered by Taisha Hurst 06/28/21 15:11: Pt spoke with niece and is requesting to DC to [facility] where niece works. Assured pt these were his wishes - he agrees. Spoke with niece whom is BOM at [facility] and she stated pt has [facility] Medicaid already - #[id number]. Provided registration with [facility] Pt is accepted at [facility]. Update [facility]. Completed PAS - did not trigger. Plan: DC to [facility] 06/30 Addendum entered by Taisha Hurst 06/28/21 10:27: [facility] cannot accept pt since he is not COVID vaccinated as they do not have any beds on their isolation unit. [facility] can clinically accept - they are requesting further information of his finances and pt would need to pay patient liability to admit. Will follow up with pt. Original Note: Social Work Spoke with patient about DC plans as insurance issued DC 06/30. Pt stated he cannot go home because he needs assistance when his GF is at work. Pt stated he has to complete the [facility] paperwork to get aides in the home from 6-9 pm daily, which would work because that is when his GF is working. Encouraged to complete paperwork ANJUM as that process takes time to get into place. Pt expressed understanding. After much discussion, pt agreeable to DC to SNF until aides are in place. Discussed finances. Pt potentially qualifies for Medicaid. Assisted in completed JAN leora with pt - GF wwill be in to visit pt tomorrow to complete and sign as authorized rep. Reviewed SNF list together - pt prefers [facility]. Referrals made. [facility] take [facility] but [facility] will review clinicals. Plan: DC to SNF MCD[facility] 06/30 MONET Yee
[2021-06-27 15:30] VITALS: BP 126/90; PULSE 81; RESP 18; TEMP 36.4; O2SAT 97
[2021-06-27] MEDS: traMADol 50 MG Tablet PO (16:09)
--- NOTE | 2021-06-27 16:14 | NURSING ---
Pt had urology appointment today, urologist recommends trial of vesicare 10mg QHS, bladder scans to monitor retention, if retention occurs vesicare needs to be stopped. F/U in 3 months.
--- NOTE | 2021-06-27 19:56 | DS.PCM_ITS ---
Providers Date of Admission: 06/09/21 Primary Care Physician: MELODY Chow Reason For Visit: CHEST PAIN Diagnosis Discharge Diagnosis (1) Debility: Status: Acute Code(s): R53.81 - Other malaise (2) Chest pain: Status: Acute Code(s): R07.9 - Chest pain, unspecified (3) Sleep apnea: Status: Acute Code(s): G47.30 - Sleep apnea, unspecified (4) Hypertension: Status: Chronic Code(s): I10 - Essential (primary) hypertension (5) Tobacco abuse: Status: Acute Code(s): Z72.0 - Tobacco use (6) Transient ischemic attack: Status: Acute Code(s): G45.9 - Transient cerebral ischemic attack, unspecified (7) Insomnia: Status: Acute Code(s): G47.00 - Insomnia, unspecified (8) Benign prostate hyperplasia: Status: Acute Code(s): N40.0 - Benign prostatic hyperplasia without lower urinary tract symptoms Medications at Discharge Home Medications Therems-M 1 tab PO DAILY 06/08/21 melatonin 10 mg PO QHS 06/08/21 aspirin 81 mg PO DAILY@0800 06/09/21 acetaminophen 1,000 mg PO Q6H PRN PRN #0 tab 06/27/21 magnesium chloride [Mag 64] 128 mg PO QHS #0 tab 06/27/21 menthol-zinc oxide [Calmoseptine] 1 applic TOPICAL BID #0 g 06/27/21 nystatin [Nyamyc] 1 applic TOPICAL BID #0 g 06/27/21 polysaccharide iron complex [Ferrex 150] 150 mg PO DAILYCM #0 cap 06/27/21 tamsulosin 0.8 mg PO QHS #0 cap 06/27/21 tolterodine 4 mg PO QHS #0 cap 06/27/21 tramadol 50 mg PO Q6H PRN PRN 3 Days #12 tab 06/27/21 Hospital Course Operations None Procedures None Summary of Care Provided Minutes Spent on Discharge: 35 Hospital Course: 65 year old male with below past medical history hospitalized for chest pain, ruled out for myocardial infarction, negative stress test, a dmitted to TCU with debility, here for rehabilitation, strengthening, prior to discharge home with girlfriend. [facility] to [facility] 06/10/2021 Skilled PT/OT. Physical Exam Const alert and oriented x3 General Appearance: cooperative HEENT normocephalic Eyes PERRL and EOMs intact bilaterally Neck supple, no JVD and no carotid bruits Resp normal respiratory effort, normal air movement and clear to auscultation bilaterally Cardio regular rate and regular rhythm GI normal to inspection, nondistended, normoactive bowel sounds, non-tender and non-distended Extremity normal capillary refill General Extremity: Negative for edema Skin no rashes or lesions noted General Skin Exam: no breakdown Psych affect normal Appearance: appropriate Medical Records Data Medical Nutrition Assessment Dietitian: Malnutrition Criteria Met Start: 06/10/21 13:41 Freq: Status: Active Protocol: Document 06/10/21 13:42 BUFFY (Rec: 06/10/21 13:42 [facility] [id number]) Nutrition Malnutrition Evidence of Malnutrition Exists Yes Malnutrition (severe): Acute Illness/Injury Evidenced By Weight Loss (Severe),Physical Changes (Severe) Clinical Problem Unintended Weight Loss Etiology related to spinal surgery February 2021 and was very sick w/ n/ v/d after surgery for awhile after w/ n/v/d Signs/Symptoms as evidenced by 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 Weight / BMI Weight Weight: 92.618 kg Body Mass Index (BMI) 29.8 ABG / Lab / Microbiology Data Result Diagrams: 06/26/21 05:20 06/24/21 06:18 D/C Instructions Discharge Diet: No restrictions Discharge Activity: Return to Normal Activity, May Shower and Use Walker Weight Bearing Status: Weight bearing as tolerated Call your doctor if you observe: Fever of 101 or Higher, Inability to urinate, Inability to have a bowel movement, Shortness of breath, Dizziness, Fainting spe lls, Swelling in the ankles, Chest pain, Increased palpitations (irregular heartbeat) and Uncontrolled pain Additional Instructions: Discharge to [facility] 06/10/2021 Skilled PT/OT. Please Follow Up With: Aldo Nielsen NP, CAMPAIGN MANAGER-C When: After discharge from detention facility. Meaningful Use Info Meaningful Use Diagnoses (Choose all that apply): None applicable Discharge Plan Admission Admit Date/Time: 06/09/21 17:55 Primary Reason for Your Visit: Debility. Attending Provider: Jacky Webb Chi Primary Care Provider: Aldo Nielsen NP Instructions Patient Instructions: ED Chest Pain, Noncardiac Additional Instructions / Restrictions: Discharge to [facility] Facility 06/10/2021 Skilled PT/OT. Discharge Orders/Prescriptions Prescriptions: New acetaminophen 500 mg Tablet 1,000 mg PO Q6H PRN PRN (Reason: Pain Score 1-3) Qty: 0 RF: 0 tamsulosin 0.4 mg Capsule 0.8 mg PO QHS Qty: 0 RF: 0 polysaccharide iron complex [Ferrex 150] 150 mg iron Capsule 150 mg PO DAILYCM Qty: 0 RF: 0 magnesium chloride [Mag 64] 64 mg Tablet,Delayed Release (Dr/Ec) 128 mg PO QHS Qty: 0 RF: 0 tolterodine 4 mg Capsule,Extended Release 24hr 4 mg PO QHS Qty: 0 RF: 0 tramadol 50 mg Tablet 50 mg PO Q6H PRN PRN (Reason: Pain Score 4-10) 3 Days Qty: 12 RF: 0 nystatin [Nyamyc] 100,000 unit/gram Powder 1 applic topical BID Qty: 0 RF: 0 menthol-zinc oxide [Calmoseptine] 0.44-20.6 % Ointment 1 applic topical BID Qty: 0 RF: 0 Continued Therems-M 9 mg iron-400 mcg Tablet 1 tab PO DAILY RF: 0 melatonin 10 mg Tablet 10 mg PO QHS RF: 0 aspirin 81 MG tablet,chewable 81 mg PO DAILY@0800 RF: 0 Discontinued Fish Oil 1 EACH capsule 1 ea PO DAILY RF: 0 apple cider vinegar 600 MG capsule 600 mg PO DAILY RF: 0 tamsulosin 0.4 mg capsule 0.4 mg PO DAILY RF: 0 lisinopril-hydrochlorothiazide 20-12.5 mg tablet 1 tab PO DAILY RF: 0 sulfamethoxazole-trimethoprim 800-160 mg tablet 1 tab PO BID RF: 0 Referrals / Follow Up: Aldo Nielsen NP, CAMPAIGN MANAGER-C [Primary Care Provider] - Disposition Disposition (needs filled in before D/C Order can be placed): Prison Facility
--- NOTE | 2021-06-27 20:01 | PCM.TXEXTCAR ---
Diet 06/09/21 19:24 Diet: Cardiac - Heart Healthy Food consistency:: Regular Liquid Consistency:: Regular/Thin Type of Dietary Supplement:: Ensure Enlive Is pt able to select menu?: Yes Diet Comments: 120 ml chocolate ensure enlive w/ meals TID. Built up utensils with meals. Routine Orders/Code Status Code Status: Full Code Wound(s) KHOI POST THIGHS: Wound Type: Abrasion Therapies Weight Bearing: Weight bearing as tolerated Extremity Affected:: Bilateral Lower Physical Therapy: Eval and Treat Occupational Therapy: Eval and Treat Problem/Diagnosis (1) Debility: Status: Acute (2) Chest pain: Status: Acute (3) Sleep apnea: Status: Acute (4) Hypertension: Status: Chronic (5) Tobacco abuse: Status: Acute (6) Transient ischemic attack: Status: Acute (7) Insomnia: Status: Acute (8) Benign prostate hyperplasia: Status: Acute Allergies/Procedures Done in Hospital Allergies No Known Allergies Allergy (Verified 06/08/21 12:11) Type of Care/Length of Stay Estimated LOS: Convalescent Care Less Than 30 days Type of Care Needed: Skilled Rehab Potential: Fair Prognosis: Fair Additional Orders/Day of Discharge Day of Discharge: 06/30/21 Dietary and Speech Recommendations Dietitian Recommendations/Changes: Will continue cardiac diet as ordered Will continue to provide 120 ml chocolate ensure enlive w/ meals for increased protein if consumed. Follow Up Care Please Follow Up With: Aldo Nielsen NP, AUTOMOBILE SALES REPRESENTATIVE-C When: after d/c from TCU Please Follow Up With: Dr. Donnelly-Urology When: Saturday Please Follow Up With: Neurology (Dr. Dominguez) When: Discharge Plan Admission Admit Date/Time: 06/09/21 17:55 Primary Reason for Your Visit: Debility. Attending Provider: Jacky Webb Chi Primary Care Provider: Aldo Nielsne NP Instructions Patient Instructions: ED Chest Pain, Noncardiac Additional Instructions / Restrictions: Discharge to [facility] 06/10/2021 Skilled PT/OT. Discharge Orders/Prescriptions Prescriptions: New acetaminophen 500 mg Tablet 1,000 mg PO Q6H PRN PRN (Reason: Pain Score 1-3) Qty: 0 RF: 0 tamsulosin 0.4 mg Capsule 0.8 mg PO QHS Qty: 0 RF: 0 polysaccharide iron complex [Ferrex 150] 150 mg iron Capsule 150 mg PO DAILYCM Qty: 0 RF: 0 magnesium chloride [Mag 64] 64 mg Tablet,Delayed Release (Dr/Ec) 128 mg PO QHS Qty: 0 RF: 0 tolterodine 4 mg Capsule,Extended Release 24hr 4 mg PO QHS Qty: 0 RF: 0 tramadol 50 mg Tablet 50 mg PO Q6H PRN PRN (Reason: Pain Score 4-10) 3 Days Qty: 12 RF: 0 nystatin [Nyamyc] 100,000 unit/gram Powder 1 applic topical BID Qty: 0 RF: 0 menthol-zinc oxide [Calmoseptine] 0.44-20.6 % Ointment 1 applic topical BID Qty: 0 RF: 0 Continued Therems-M 9 mg iron-400 mcg Tablet 1 tab PO DAILY RF: 0 melatonin 10 mg Tablet 10 mg PO QHS RF: 0 aspirin 81 MG tablet,chewable 81 mg PO DAILY@0800 RF: 0 Discontinued Fish Oil 1 EACH capsule 1 ea PO DAILY RF: 0 apple cider vinegar 600 MG capsule 600 mg PO DAILY RF: 0 tamsulosin 0.4 mg capsule 0.4 mg PO DAILY RF: 0 lisinopril-hydrochlorothiazide 20-12.5 mg tablet 1 tab PO DAILY RF: 0 sulfamethoxazole-trimethoprim 800-160 mg tablet 1 tab PO BID RF: 0 Referrals / Follow Up: Aldo Nielsen NP, AUTOMOBILE SALES REPRESENTATIVE-C [Primary Care Provider] - Disposition Disposition (needs filled in before D/C Order can be placed): [facility]
[2021-06-27] MEDS: Magnesium Chloride 64 MG Delay Rel.Tablet 128 MG PO (20:29)
[2021-06-27] MEDS: Tolterodine Tartrate 4 MG CAP.SA PO (20:29)
[2021-06-27] MEDS: Tamsulosin HCl 0.4 MG Capsule 0.8 MG PO (20:29)
[2021-06-27] MEDS: MELATONIN 10 MG TABLET PO (20:29)
[2021-06-27] MEDS: Baclofen 10 MG Tablet PO (20:29)
[2021-06-28] MEDS: Menthol/Lanolin/Calamine/Znox 113 GM Tube 1 APPLIC TOPICAL ×2 (05:48→18:27)
[2021-06-28] MEDS: Nystatin Powder 15gm Bottle 1 APPLIC TOPICAL ×2 (05:48→18:28)
[2021-06-28] MEDS: Polyethylene Glycol 3350 17 GM PACKET PO (05:49)
[2021-06-28] MEDS: Senna/Docusate Sodium 1 Tablet PO ×2 (05:49→18:21)
[2021-06-28 05:56] LABS: Hematocrit 30.6 % (40-54); Hemoglobin 10.5 g/dL (13.0-16.5)
[2021-06-28] MEDS: Aspirin 81 MG TAB.CHEW PO (08:51)
[2021-06-28] MEDS: Iron Polysaccharide Complex 150 MG CAPSULE PO (08:51)
[2021-06-28] MEDS: Multivitamins,Ther W-Minerals Tablet 1 TABLET PO (08:51)
[2021-06-28] MEDS: traMADol 50 MG Tablet PO ×2 (13:29→21:22)
[2021-06-28 15:37] VITALS: BP 138/85; PULSE 83; RESP 18; TEMP 36; O2SAT 97
--- NOTE | 2021-06-28 18:25 | NURSING ---
Pt refused Flu Shot.
[2021-06-28] MEDS: MELATONIN 10 MG TABLET PO (21:20)
[2021-06-28] MEDS: Tamsulosin HCl 0.4 MG Capsule 0.8 MG PO (21:20)
[2021-06-28] MEDS: Tolterodine Tartrate 4 MG CAP.SA PO (21:20)
[2021-06-28] MEDS: Magnesium Chloride 64 MG Delay Rel.Tablet 128 MG PO (21:20)
[2021-06-28] MEDS: Baclofen 10 MG Tablet PO (21:22)
[2021-06-28 21:45] VITALS: PULSE 70; O2SAT 98
[2021-06-29] MEDS: Nystatin Powder 15gm Bottle 1 APPLIC TOPICAL ×2 (07:21→20:39)
[2021-06-29] MEDS: Menthol/Lanolin/Calamine/Znox 113 GM Tube 1 APPLIC TOPICAL ×2 (07:21→20:38)
[2021-06-29] MEDS: traMADol 50 MG Tablet PO ×2 (07:25→20:36)
[2021-06-29] MEDS: Multivitamins,Ther W-Minerals Tablet 1 TABLET PO (07:50)
[2021-06-29] MEDS: Iron Polysaccharide Complex 150 MG CAPSULE PO (07:50)
[2021-06-29] MEDS: Aspirin 81 MG TAB.CHEW PO (07:50)
--- NOTE | 2021-06-29 10:38 | NURSING ---
pt returned from neurology appt, f/u on JUL 18 @ 1220, labs on sep 22, and office visit with NAY Armstrong on Sep 26 @ 10am
[2021-06-29 11:20] VITALS: PULSE 45; RESP 18; O2SAT 98
--- NOTE | 2021-06-29 16:20 | CASEMGMT ---
Social Work Followed up with pt on DC. Pt stated he appealed discharge. SW did not get any confirmation from [facility]. Pt showed this worker his phone call to [facility] on 06/27 at 4:53 pm and stated he left a voicemail indicating he wanted to appeal. This worker sat with pt as he contacted [facility] again and filed an appeal. Received case #[id number], EMR Hoffman: [id number]. Explained to pt the private pay cost if does not DC 06/30 and either has not heard back from appeal or loses appeal. Pt expressed understanding. Inquired about transport and provided private pay cost. Pt requested w/c transport. Scheduled w/c transport on will call with [facility]. Will continue to follow. MONET YeeW
[2021-06-29 16:24] VITALS: BP 153/62; PULSE 80; RESP 18; TEMP 36.3; O2SAT 96
[2021-06-29] MEDS: Acetaminophen 500 MG Tablet 1000 MG PO (17:00)
[2021-06-29] MEDS: Magnesium Chloride 64 MG Delay Rel.Tablet 128 MG PO (20:36)
[2021-06-29] MEDS: Baclofen 10 MG Tablet PO (20:36)
[2021-06-29] MEDS: Tamsulosin HCl 0.4 MG Capsule 0.8 MG PO (20:38)
[2021-06-29] MEDS: MELATONIN 10 MG TABLET PO (20:38)
[2021-06-29] MEDS: Tolterodine Tartrate 4 MG CAP.SA PO (20:38)
[2021-06-30] MEDS: Menthol/Lanolin/Calamine/Znox 113 GM Tube 1 APPLIC TOPICAL ×2 (05:03→17:04)
[2021-06-30] MEDS: Polyethylene Glycol 3350 17 GM PACKET PO (05:03)
[2021-06-30] MEDS: Senna/Docusate Sodium 1 Tablet PO (05:03)
[2021-06-30] MEDS: Nystatin Powder 15gm Bottle 1 APPLIC TOPICAL ×2 (05:04→22:04)
--- NOTE | 2021-06-30 05:24 | NURSING ---
No c/o dysuria or urine retention this shift. Reports new order for Detrol as effective.
[2021-06-30] MEDS: Aspirin 81 MG TAB.CHEW PO (08:39)
[2021-06-30] MEDS: Iron Polysaccharide Complex 150 MG CAPSULE PO (08:39)
[2021-06-30] MEDS: Multivitamins,Ther W-Minerals Tablet 1 TABLET PO (08:40)
[2021-06-30] MEDS: traMADol 50 MG Tablet PO ×2 (08:43→22:03)
[2021-06-30 09:00] VITALS: PULSE 92; RESP 18; O2SAT 96
[2021-06-30] MEDS: Acetaminophen 500 MG Tablet 1000 MG PO (14:23)
[2021-06-30 14:55] VITALS: BP 144/73; PULSE 78; RESP 18; TEMP 36.6; O2SAT 96
--- NOTE | 2021-06-30 15:42 | CASEMGMT ---
Social Work Reviewed [employer] website and pt's documents has not been reviewed by physician yet - unlikely to get outcome this date. Spoke with pt and provided update. Pt would like to wait to hear from appeal. Reiterated if pt stays in TCU and does not win appeal, he will be responsible for paying privately $660/day. Pt stated he would get on a payment plan to pay the total cost. Pt asked for this worker to call niece. Spoke with niece, answered questions, relayed information above. Niece stated family could transport pt whenever he is ready to DC. Cancelled will call w/c transport through [facility]. Updated WVM and IDT. Instructed nursing when pt is ready to DC, to notify WVM and fax DC paperwork. Pt and nial appreciative of assistance. Taisha Hurst, CLINIC MD ASSOCIATE ORACLE ANALYST
[2021-06-30] MEDS: Magnesium Chloride 64 MG Delay Rel.Tablet 128 MG PO (22:03)
[2021-06-30] MEDS: Tamsulosin HCl 0.4 MG Capsule 0.8 MG PO (22:03)
[2021-06-30] MEDS: Tolterodine Tartrate 4 MG CAP.SA PO (22:03)
[2021-06-30] MEDS: Baclofen 10 MG Tablet PO (22:03)
[2021-06-30] MEDS: MELATONIN 10 MG TABLET PO (22:04)
[2021-07-01] MEDS: Polyethylene Glycol 3350 17 GM PACKET PO (05:56)
[2021-07-01] MEDS: Senna/Docusate Sodium 1 Tablet PO (05:56)
[2021-07-01] MEDS: Nystatin Powder 15gm Bottle 1 APPLIC TOPICAL ×2 (05:57→16:37)
[2021-07-01] MEDS: Menthol/Lanolin/Calamine/Znox 113 GM Tube 1 APPLIC TOPICAL ×2 (05:58→16:37)
[2021-07-01 08:39] LABS: Absolute Neutrophil Count 2.9 X10^3/uL (2.0-7.7); Basophil# 0.02 X10^3/uL; Basophil% 0.5 % (0-1); Eosinophil# 0.04 X10^3/uL; Hematocrit 34.1 % (40-54); Hemoglobin 11.4 g/dL (13.0-16.5); Lymphocyte % 19.4 % (19-41); Mean Corp Hgb Conc 33.4 g/dL (32-36); Mean Corpuscular Hgb 31.8 pg (27.0-32.0); Mean Corpuscular Volume 95.3 fL (80-94); Mean Platelet Vol. 9.7 fl (6.2-12.0); Monocyte# 0.36 X10^3/uL; Monocyte% 8.7 % (0-10); NRBC Flagged by Analyzer 0 % (0-5); Neutrophil % 70.2 % (47-70); Platelet Count 140 K/mm3 (150-450); RBC Distribution Width SD 41.4 fl (35.1-43.9); Red Blood Count 3.58 M/mm3 (4.6-6.2); White Blood Count 4.1 K/mm3 (4.4-11.0)
[2021-07-01] MEDS: Multivitamins,Ther W-Minerals Tablet 1 TABLET PO (08:59)
[2021-07-01] MEDS: Iron Polysaccharide Complex 150 MG CAPSULE PO (08:59)
[2021-07-01] MEDS: Aspirin 81 MG TAB.CHEW PO (08:59)
[2021-07-01 09:23] LABS: Anion Gap 7 (5-15); BUN 30 mg/dL (7-18); Calcium,Total 9.7 mg/dL (8.5-10.1); Chloride 105 mmol/L (98-107); EST Glomerular Filtration Rate 64 mL/min (>60); Est Glom Filt Rate - Afr Amer 78 mL/min (>60); Estimated Creatinine Clearance 58.58 ml/min; Glucose 92 mg/dL (74-106); Sodium Level 137 mmol/L (136-145)
[2021-07-01 14:38] VITALS: BP 152/88; PULSE 81; RESP 18; TEMP 36.2; O2SAT 97
--- NOTE | 2021-07-01 15:25 | NURSING ---
Report called to Yvonne at [facility]. All information faxed per their request.
--- NOTE | 2021-07-03 07:42 | CASEMGMT ---
Social Work Patient lost appeal and was notified 07/01 at 4:08 pm by Lila. Pt discharged to [facility] 07/01. Pt is responsible for private pay 06/30. MONET Yee
== END 2021-07-01 17:12 | disposition skilled nursing facility (03) | DRG 690 ==
PROVIDERS: Admitting Provider Family Medicine Geriatric Medicine; PCP Nurse Practitioner Family; Visit Provider Family Medicine Geriatric Medicine
DX: N39.0 Urinary tract infection, site not specified (principal); I10 Essential (primary) hypertension; G47.30 Sleep apnea, unspecified; R53.81 Other malaise; N40.0 Benign prostatic hyperplasia without lower urinary tract symptoms; R07.2 Precordial pain; G47.00 Insomnia, unspecified; R06.02 Shortness of breath; Z86.73 Personal history of transient ischemic attack (TIA), and cerebral infarction without residual deficits; Z79.899 Other long term (current) drug therapy; Z79.82 Long term (current) use of aspirin; Z87.891 Personal history of nicotine dependence
CPT/HCPCS: 36415; 80048; 85014; 85018; 85025; 87426; 87635; 94002; 94660; 97110; 97116; 97162; 97166; 97530; 97535; 97802; 99406; U0005; U0003

== ENCOUNTER → 2021-07-05 05:00 | Outpatient (REF) | payer MEDICARE, MEDICAID, SELFPAY ==
[2021-07-05 07:22] LABS: Absolute Lymphocyte Count 0.97 X10^3/uL (0.83-4.51); Absolute Neutrophil Count 2.9 X10^3/uL (2.0-7.7); Basophil# 0.02 X10^3/uL; Basophil% 0.5 % (0-1); Eosinophil# 0.09 X10^3/uL; Hematocrit 29.3 % (40-54); Hemoglobin 9.9 g/dL (13.0-16.5); Lymphocyte # 0.97 X10^3/ul (0.83-4.51); Lymphocyte % 21.8 % (19-41); Mean Corp Hgb Conc 33.8 g/dL (32-36); Mean Corpuscular Hgb 31.6 pg (27.0-32.0); Mean Corpuscular Volume 93.6 fL (80-94); Mean Platelet Vol. 10.3 fl (6.2-12.0); Monocyte# 0.43 X10^3/uL; Monocyte% 9.7 % (0-10); NRBC Flagged by Analyzer 0 % (0-5); Neutrophil # 2.92 X10^3/uL (2.7-7.7); Neutrophil % 65.8 % (47-70); Platelet Count 121 K/mm3 (150-450); RBC Distribution Width CV 12.3 % (11.6-14.6); RBC Distribution Width SD 41.9 fl (35.1-43.9); Red Blood Count 3.13 M/mm3 (4.6-6.2); White Blood Count 4.4 K/mm3 (4.4-11.0)
[2021-07-05 07:39] LABS: Anion Gap 8 (5-15); BUN 27 mg/dL (7-18); BUN/Creat Ratio 24.5 RATIO (10-20); Calcium,Total 8.9 mg/dL (8.5-10.1); Chloride 104 mmol/L (98-107); EST Glomerular Filtration Rate 71 mL/min (>60); Est Glom Filt Rate - Afr Amer 86 mL/min (>60); Glucose 89 mg/dL (74-106); Potassium 3.8 mmol/L (3.5-5.1); Sodium Level 139 mmol/L (136-145)
== END ==
LOC: OLS.WHLTCC 05:00
PROVIDERS: PCP Nurse Practitioner Family; Visit Provider Family Medicine
DX: R53.83 Other fatigue (principal); G45.9 Transient cerebral ischemic attack, unspecified; I12.9 Hypertensive chronic kidney disease with stage 1 through stage 4 chronic kidney disease, or unspecified chronic kidney disease; N18.9 Chronic kidney disease, unspecified
CPT/HCPCS: 36415; 80048; 85025

== ENCOUNTER → 2021-07-10 05:00 | Outpatient (REF) | payer MEDICARE, MEDICAID, SELFPAY ==
[2021-07-10 07:55] LABS: Absolute Lymphocyte Count 0.68 X10^3/uL (0.83-4.51); Absolute Neutrophil Count 4.7 X10^3/uL (2.0-7.7); Basophil# 0.01 X10^3/uL; Basophil% 0.2 % (0-1); Hematocrit 29.2 % (40-54); Hemoglobin 9.6 g/dL (13.0-16.5); Lymphocyte # 0.68 X10^3/ul (0.83-4.51); Lymphocyte % 11.8 % (19-41); Mean Corp Hgb Conc 32.9 g/dL (32-36); Mean Corpuscular Hgb 31.6 pg (27.0-32.0); Mean Corpuscular Volume 96.1 fL (80-94); Mean Platelet Vol. 10.9 fl (6.2-12.0); Monocyte# 0.38 X10^3/uL; Monocyte% 6.6 % (0-10); NRBC Flagged by Analyzer 0 % (0-5); Neutrophil # 4.65 X10^3/uL (2.7-7.7); Neutrophil % 81.1 % (47-70); Platelet Count 134 K/mm3 (150-450); RBC Distribution Width CV 12.3 % (11.6-14.6); RBC Distribution Width SD 42.3 fl (35.1-43.9); Red Blood Count 3.04 M/mm3 (4.6-6.2); White Blood Count 5.7 K/mm3 (4.4-11.0)
[2021-07-10 08:03] LABS: Anion Gap 7 (5-15); BUN 27 mg/dL (7-18); Calcium,Total 8.9 mg/dL (8.5-10.1); Chloride 108 mmol/L (98-107); Creatinine, Serum 1.04 mg/dL (0.70-1.30); EST Glomerular Filtration Rate 76 mL/min (>60); Est Glom Filt Rate - Afr Amer 92 mL/min (>60); Glucose 111 mg/dL (74-106); Potassium 3.8 mmol/L (3.5-5.1); Sodium Level 141 mmol/L (136-145)
== END ==
LOC: OLS.WHLTCC 05:00
PROVIDERS: PCP Nurse Practitioner Family; Visit Provider Family Medicine
DX: R53.83 Other fatigue (principal); G45.9 Transient cerebral ischemic attack, unspecified; I12.9 Hypertensive chronic kidney disease with stage 1 through stage 4 chronic kidney disease, or unspecified chronic kidney disease; N18.9 Chronic kidney disease, unspecified
CPT/HCPCS: 36415; 80048; 85025

== ENCOUNTER → 2021-07-17 05:00 | Outpatient (REF) | payer MEDICARE, MEDICAID, SELFPAY ==
[2021-07-17 08:17] LABS: Absolute Lymphocyte Count 1.45 X10^3/uL (0.83-4.51); Basophil# 0.01 X10^3/uL; Basophil% 0.1 % (0-1); Eosinophil# 0.09 X10^3/uL; Eosinophils% 1.2 % (0-5); Hematocrit 30.7 % (40-54); Hemoglobin 10.2 g/dL (13.0-16.5); Lymphocyte # 1.45 X10^3/ul (0.83-4.51); Lymphocyte % 19.9 % (19-41); Mean Corp Hgb Conc 33.2 g/dL (32-36); Mean Corpuscular Hgb 31.4 pg (27.0-32.0); Mean Corpuscular Volume 94.5 fL (80-94); Mean Platelet Vol. 10.2 fl (6.2-12.0); Monocyte# 0.68 X10^3/uL; Monocyte% 9.4 % (0-10); NRBC Flagged by Analyzer 0 % (0-5); Neutrophil % 68.8 % (47-70); Platelet Count 166 K/mm3 (150-450); RBC Distribution Width CV 12.6 % (11.6-14.6); RBC Distribution Width SD 43.5 fl (35.1-43.9); Red Blood Count 3.25 M/mm3 (4.6-6.2); White Blood Count 7.3 K/mm3 (4.4-11.0)
[2021-07-17 08:44] LABS: Anion Gap 8 (5-15); BUN 31 mg/dL (7-18); BUN/Creat Ratio 27.7 RATIO (10-20); Calcium,Total 8.8 mg/dL (8.5-10.1); Chloride 105 mmol/L (98-107); Creatinine, Serum 1.12 mg/dL (0.70-1.30); EST Glomerular Filtration Rate 70 mL/min (>60); Est Glom Filt Rate - Afr Amer 84 mL/min (>60); Glucose 94 mg/dL (74-106); Potassium 3.6 mmol/L (3.5-5.1); Sodium Level 138 mmol/L (136-145)
== END ==
LOC: OLS.WHLTCC 05:00
PROVIDERS: PCP Nurse Practitioner Family; Visit Provider Family Medicine
DX: R53.83 Other fatigue (principal); G45.9 Transient cerebral ischemic attack, unspecified; I12.9 Hypertensive chronic kidney disease with stage 1 through stage 4 chronic kidney disease, or unspecified chronic kidney disease; N18.9 Chronic kidney disease, unspecified
CPT/HCPCS: 36415; 80048; 85025

== ENCOUNTER → 2021-07-24 05:00 | Outpatient (REF) | payer MEDICARE, MEDICAID, SELFPAY ==
[2021-07-24 06:27] LABS: Absolute Lymphocyte Count 1.08 X10^3/uL (0.83-4.51); Absolute Neutrophil Count 5.3 X10^3/uL (2.0-7.7); Basophil# 0.02 X10^3/uL; Basophil% 0.3 % (0-1); Eosinophil# 0.09 X10^3/uL; Eosinophils% 1.3 % (0-5); Hematocrit 32.9 % (40-54); Hemoglobin 10.7 g/dL (13.0-16.5); Lymphocyte # 1.08 X10^3/ul (0.83-4.51); Lymphocyte % 15.2 % (19-41); Mean Corp Hgb Conc 32.5 g/dL (32-36); Mean Corpuscular Hgb 31.1 pg (27.0-32.0); Mean Corpuscular Volume 95.6 fL (80-94); Mean Platelet Vol. 10.5 fl (6.2-12.0); Monocyte# 0.65 X10^3/uL; Monocyte% 9.1 % (0-10); NRBC Flagged by Analyzer 0 % (0-5); Neutrophil # 5.26 X10^3/uL (2.7-7.7); Neutrophil % 73.8 % (47-70); Platelet Count 121 K/mm3 (150-450); RBC Distribution Width CV 12.5 % (11.6-14.6); RBC Distribution Width SD 43.5 fl (35.1-43.9); Red Blood Count 3.44 M/mm3 (4.6-6.2); White Blood Count 7.1 K/mm3 (4.4-11.0)
[2021-07-24 06:48] LABS: Anion Gap 10 (5-15); BUN 23 mg/dL (7-18); BUN/Creat Ratio 22.1 RATIO (10-20); Chloride 102 mmol/L (98-107); Creatinine, Serum 1.04 mg/dL (0.70-1.30); EST Glomerular Filtration Rate 76 mL/min (>60); Est Glom Filt Rate - Afr Amer 92 mL/min (>60); Glucose 99 mg/dL (74-106); Potassium 3.9 mmol/L (3.5-5.1); Sodium Level 137 mmol/L (136-145)
== END ==
LOC: OLS.WHLTCC 05:00
PROVIDERS: PCP Nurse Practitioner Family; Visit Provider Family Medicine
DX: R53.83 Other fatigue (principal); G45.9 Transient cerebral ischemic attack, unspecified; I12.9 Hypertensive chronic kidney disease with stage 1 through stage 4 chronic kidney disease, or unspecified chronic kidney disease; N18.9 Chronic kidney disease, unspecified
CPT/HCPCS: 36415; 80048; 85025

== ENCOUNTER → 2021-07-26 05:00 | Outpatient (REF) | payer MEDICARE, MEDICAID, SELFPAY ==
[2021-07-26 07:34] LABS: Absolute Lymphocyte Count 0.44 X10^3/uL (0.83-4.51); Absolute Neutrophil Count 8.5 X10^3/uL (2.0-7.7); Basophil# 0.01 X10^3/uL; Basophil% 0.1 % (0-1); Eosinophil# 0.01 X10^3/uL; Eosinophils% 0.1 % (0-5); Hematocrit 33.9 % (40-54); Hemoglobin 11.2 g/dL (13.0-16.5); Lymphocyte # 0.44 X10^3/ul (0.83-4.51); Lymphocyte % 4.4 % (19-41); Mean Corpuscular Hgb 30.9 pg (27.0-32.0); Mean Corpuscular Volume 93.6 fL (80-94); Mean Platelet Vol. 10.3 fl (6.2-12.0); Monocyte# 0.93 X10^3/uL; Monocyte% 9.4 % (0-10); NRBC Flagged by Analyzer 0 % (0-5); Neutrophil # 8.46 X10^3/uL (2.7-7.7); Neutrophil % 85.3 % (47-70); POSITIVE DIFFERENTIAL YES; Platelet Count 119 K/mm3 (150-450); RBC Distribution Width SD 41.7 fl (35.1-43.9); Red Blood Count 3.62 M/mm3 (4.6-6.2); White Blood Count 9.9 K/mm3 (4.4-11.0)
[2021-07-26 07:41] LABS: Differential Indicated SCAN CRITERIA MET
[2021-07-26 07:48] LABS: Anion Gap 7 (5-15); BUN 21 mg/dL (7-18); BUN/Creat Ratio 17.9 RATIO (10-20); Calcium,Total 9.7 mg/dL (8.5-10.1); Chloride 99 mmol/L (98-107); Creatinine, Serum 1.17 mg/dL (0.70-1.30); EST Glomerular Filtration Rate 66 mL/min (>60); Est Glom Filt Rate - Afr Amer 80 mL/min (>60); Glucose 123 mg/dL (74-106); Potassium 4.1 mmol/L (3.5-5.1); Sodium Level 132 mmol/L (136-145)
[2021-07-26 08:34] LABS: Erythrocyte Sedimentation Rate 48 mm/hr (0-20)
== END ==
LOC: OLS.WHLTCC 05:00
PROVIDERS: PCP Nurse Practitioner Family; Visit Provider Family Medicine
DX: R50.9 Fever, unspecified (principal); G45.9 Transient cerebral ischemic attack, unspecified; I12.9 Hypertensive chronic kidney disease with stage 1 through stage 4 chronic kidney disease, or unspecified chronic kidney disease; N18.9 Chronic kidney disease, unspecified
CPT/HCPCS: 36415; 80048; 85025; 85652

== ENCOUNTER → 2021-07-31 05:00 | Outpatient (REF) | payer MEDICARE, MEDICAID, SELFPAY ==
[2021-07-31 08:43] LABS: Absolute Lymphocyte Count 0.67 X10^3/uL (0.83-4.51); Absolute Neutrophil Count 4.2 X10^3/uL (2.0-7.7); Basophil# 0.02 X10^3/uL; Basophil% 0.4 % (0-1); Eosinophil# 0.06 X10^3/uL; Eosinophils% 1.1 % (0-5); Hematocrit 29.5 % (40-54); Hemoglobin 9.8 g/dL (13.0-16.5); Lymphocyte # 0.67 X10^3/ul (0.83-4.51); Lymphocyte % 12.4 % (19-41); Mean Corp Hgb Conc 33.2 g/dL (32-36); Mean Corpuscular Hgb 31.2 pg (27.0-32.0); Mean Corpuscular Volume 93.9 fL (80-94); Mean Platelet Vol. 10.3 fl (6.2-12.0); Monocyte% 7.4 % (0-10); NRBC Flagged by Analyzer 0 % (0-5); Neutrophil # 4.22 X10^3/uL (2.7-7.7); Neutrophil % 78.3 % (47-70); Platelet Count 126 K/mm3 (150-450); RBC Distribution Width CV 12.4 % (11.6-14.6); RBC Distribution Width SD 42.8 fl (35.1-43.9); Red Blood Count 3.14 M/mm3 (4.6-6.2); White Blood Count 5.4 K/mm3 (4.4-11.0)
[2021-07-31 08:55] LABS: Anion Gap 7 (5-15); BUN 33 mg/dL (7-18); BUN/Creat Ratio 34.3 RATIO (10-20); Calcium,Total 8.8 mg/dL (8.5-10.1); Chloride 107 mmol/L (98-107); Creatinine, Serum 0.96 mg/dL (0.70-1.30); EST Glomerular Filtration Rate 83 mL/min (>60); Est Glom Filt Rate - Afr Amer 100 mL/min (>60); Glucose 113 mg/dL (74-106); Potassium 3.9 mmol/L (3.5-5.1); Sodium Level 140 mmol/L (136-145)
== END ==
LOC: OLS.WHLTCC 05:00
PROVIDERS: PCP Nurse Practitioner Family; Visit Provider Family Medicine
DX: R53.83 Other fatigue (principal); G45.9 Transient cerebral ischemic attack, unspecified; I12.9 Hypertensive chronic kidney disease with stage 1 through stage 4 chronic kidney disease, or unspecified chronic kidney disease; N18.9 Chronic kidney disease, unspecified
CPT/HCPCS: 36415; 80048; 85025

== ENCOUNTER → 2021-08-07 05:00 | Outpatient (REF) | payer MEDICARE, MEDICAID, SELFPAY ==
[2021-08-07 07:46] LABS: Absolute Lymphocyte Count 1.01 X10^3/uL (0.83-4.51); Absolute Neutrophil Count 7.2 X10^3/uL (2.0-7.7); Basophil# 0.02 X10^3/uL; Basophil% 0.2 % (0-1); Eosinophil# 0.03 X10^3/uL; Eosinophils% 0.3 % (0-5); Hematocrit 32.7 % (40-54); Hemoglobin 11.1 g/dL (13.0-16.5); Lymphocyte # 1.01 X10^3/ul (0.83-4.51); Lymphocyte % 11.3 % (19-41); Mean Corp Hgb Conc 33.9 g/dL (32-36); Mean Corpuscular Hgb 31.4 pg (27.0-32.0); Mean Corpuscular Volume 92.4 fL (80-94); Mean Platelet Vol. 9.6 fl (6.2-12.0); Monocyte# 0.58 X10^3/uL; Monocyte% 6.5 % (0-10); NRBC Flagged by Analyzer 0 % (0-5); Neutrophil # 7.24 X10^3/uL (2.7-7.7); Platelet Count 208 K/mm3 (150-450); RBC Distribution Width SD 43.3 fl (35.1-43.9); Red Blood Count 3.54 M/mm3 (4.6-6.2); White Blood Count 8.9 K/mm3 (4.4-11.0)
[2021-08-07 08:22] LABS: Anion Gap 7 (5-15); BUN 24 mg/dL (7-18); BUN/Creat Ratio 23.1 RATIO (10-20); Chloride 101 mmol/L (98-107); Creatinine, Serum 1.04 mg/dL (0.70-1.30); EST Glomerular Filtration Rate 76 mL/min (>60); Est Glom Filt Rate - Afr Amer 92 mL/min (>60); Glucose 99 mg/dL (74-106); Potassium 3.5 mmol/L (3.5-5.1); Sodium Level 137 mmol/L (136-145)
== END ==
LOC: OLS.WHLTCC 05:00
PROVIDERS: PCP Nurse Practitioner Family; Visit Provider Family Medicine
DX: R53.83 Other fatigue (principal); G45.9 Transient cerebral ischemic attack, unspecified; I12.9 Hypertensive chronic kidney disease with stage 1 through stage 4 chronic kidney disease, or unspecified chronic kidney disease; N18.9 Chronic kidney disease, unspecified
CPT/HCPCS: 36415; 80048; 85025

== ENCOUNTER → 2021-08-14 05:00 | Outpatient (REF) | payer MEDICARE, MEDICAID, SELFPAY ==
[2021-08-14 07:41] LABS: Erythrocyte Sedimentation Rate 17 mm/hr (0-20)
[2021-08-14 07:43] LABS: Absolute Lymphocyte Count 1.69 X10^3/uL (0.83-4.51); Absolute Neutrophil Count 5.1 X10^3/uL (2.0-7.7); Basophil# 0.02 X10^3/uL; Basophil% 0.3 % (0-1); Eosinophil# 0.07 X10^3/uL; Eosinophils% 0.9 % (0-5); Hematocrit 36.3 % (40-54); Hemoglobin 12.1 g/dL (13.0-16.5); Lymphocyte # 1.69 X10^3/ul (0.83-4.51); Lymphocyte % 22.8 % (19-41); Mean Corp Hgb Conc 33.3 g/dL (32-36); Mean Corpuscular Hgb 30.8 pg (27.0-32.0); Mean Corpuscular Volume 92.4 fL (80-94); Mean Platelet Vol. 10.1 fl (6.2-12.0); Monocyte# 0.48 X10^3/uL; Monocyte% 6.5 % (0-10); NRBC Flagged by Analyzer 0 % (0-5); Neutrophil # 5.13 X10^3/uL (2.7-7.7); Neutrophil % 69.1 % (47-70); Platelet Count 158 K/mm3 (150-450); RBC Distribution Width CV 13.2 % (11.6-14.6); Red Blood Count 3.93 M/mm3 (4.6-6.2); White Blood Count 7.4 K/mm3 (4.4-11.0)
[2021-08-14 07:47] LABS: Anion Gap 7 (5-15); BUN 24 mg/dL (7-18); BUN/Creat Ratio 21.2 RATIO (10-20); Calcium,Total 9.2 mg/dL (8.5-10.1); Chloride 101 mmol/L (98-107); Creatinine, Serum 1.13 mg/dL (0.70-1.30); EST Glomerular Filtration Rate 69 mL/min (>60); Est Glom Filt Rate - Afr Amer 83 mL/min (>60); Glucose 90 mg/dL (74-106); Potassium 3.4 mmol/L (3.5-5.1); Sodium Level 136 mmol/L (136-145)
== END ==
LOC: OLS.WHLTCC 05:00
PROVIDERS: PCP Nurse Practitioner Family; Visit Provider Family Medicine
DX: R53.83 Other fatigue (principal); G45.9 Transient cerebral ischemic attack, unspecified; I12.9 Hypertensive chronic kidney disease with stage 1 through stage 4 chronic kidney disease, or unspecified chronic kidney disease; N18.9 Chronic kidney disease, unspecified
CPT/HCPCS: 36415; 80048; 85025; 85652

== ENCOUNTER → 2021-08-21 04:00 | Outpatient (REF) | payer MEDICARE, MEDICAID, SELFPAY ==
[2021-08-21 06:44] LABS: Absolute Lymphocyte Count 0.75 X10^3/uL (0.83-4.51); Absolute Neutrophil Count 3.5 X10^3/uL (2.0-7.7); Basophil# 0.01 X10^3/uL; Basophil% 0.2 % (0-1); Eosinophil# 0.09 X10^3/uL; Eosinophils% 1.8 % (0-5); Hematocrit 33.1 % (40-54); Hemoglobin 11.1 g/dL (13.0-16.5); Lymphocyte # 0.75 X10^3/ul (0.83-4.51); Lymphocyte % 15.2 % (19-41); Mean Corp Hgb Conc 33.5 g/dL (32-36); Mean Corpuscular Hgb 31.2 pg (27.0-32.0); Mean Platelet Vol. 10.4 fl (6.2-12.0); Monocyte% 12.1 % (0-10); NRBC Flagged by Analyzer 0 % (0-5); Neutrophil # 3.47 X10^3/uL (2.7-7.7); Neutrophil % 70.1 % (47-70); POSITIVE COUNT YES; Platelet Count 91 K/mm3 (150-450); RBC Distribution Width CV 13.4 % (11.6-14.6); RBC Distribution Width SD 45.7 fl (35.1-43.9); Red Blood Count 3.56 M/mm3 (4.6-6.2)
[2021-08-21 06:49] LABS: Differential Indicated SCAN CRITERIA MET
[2021-08-21 07:15] LABS: Anion Gap 6 (5-15); BUN 28 mg/dL (7-18); BUN/Creat Ratio 27.5 RATIO (10-20); Calcium,Total 8.9 mg/dL (8.5-10.1); Chloride 102 mmol/L (98-107); Creatinine, Serum 1.02 mg/dL (0.70-1.30); EST Glomerular Filtration Rate 78 mL/min (>60); Est Glom Filt Rate - Afr Amer 94 mL/min (>60); Glucose 84 mg/dL (74-106); Sodium Level 137 mmol/L (136-145)
[2021-08-21 08:00] LABS: Platelet Estimate MOD DEC (ADEQ)
== END ==
LOC: OLS.WHLTCC 04:00
PROVIDERS: PCP Nurse Practitioner Family; Visit Provider Family Medicine
DX: R53.83 Other fatigue (principal); I12.9 Hypertensive chronic kidney disease with stage 1 through stage 4 chronic kidney disease, or unspecified chronic kidney disease; N18.9 Chronic kidney disease, unspecified; Z86.73 Personal history of transient ischemic attack (TIA), and cerebral infarction without residual deficits
CPT/HCPCS: 36415; 80048; 85025

== ENCOUNTER → 2021-08-22 | Outpatient (REF) | payer MEDICARE, MEDICAID, SELFPAY | END | disposition home or self-care (01) | LOC: OLS.WHLTCC 19:00 | PROVIDERS: PCP Nurse Practitioner Family; Visit Provider Family Medicine | DX: U07.1 COVID-19 (principal); I12.9 Hypertensive chronic kidney disease with stage 1 through stage 4 chronic kidney disease, or unspecified chronic kidney disease; N18.9 Chronic kidney disease, unspecified; R54 Age-related physical debility; G45.9 Transient cerebral ischemic attack, unspecified | CPT/HCPCS: 87635; U0005; U0003 ==

== ENCOUNTER → 2021-08-28 04:00 | Outpatient (REF) | payer MEDICARE, MEDICAID, SELFPAY ==
[2021-08-28 08:27] LABS: Absolute Lymphocyte Count 0.52 X10^3/uL (0.83-4.51); Absolute Neutrophil Count 4.3 X10^3/uL (2.0-7.7); Eosinophil# 0.01 X10^3/uL; Eosinophils% 0.2 % (0-5); Lymphocyte # 0.52 X10^3/ul (0.83-4.51); Lymphocyte % 10.1 % (19-41); Mean Corp Hgb Conc 34.4 g/dL (32-36); Mean Corpuscular Hgb 30.6 pg (27.0-32.0); Mean Corpuscular Volume 89.1 fL (80-94); Mean Platelet Vol. 10.2 fl (6.2-12.0); Monocyte# 0.27 X10^3/uL; Monocyte% 5.3 % (0-10); NRBC Flagged by Analyzer 0 % (0-5); Neutrophil % 83.6 % (47-70); POSITIVE COUNT YES; POSITIVE DIFFERENTIAL YES; Platelet Count 90 K/mm3 (150-450); RBC Distribution Width CV 13.1 % (11.6-14.6); RBC Distribution Width SD 42.8 fl (35.1-43.9); Red Blood Count 3.59 M/mm3 (4.6-6.2); White Blood Count 5.1 K/mm3 (4.4-11.0)
[2021-08-28 08:29] LABS: Differential Indicated SCAN CRITERIA MET
[2021-08-28 08:54] LABS: Anion Gap 8 (5-15); BUN 33 mg/dL (7-18); BUN/Creat Ratio 36.3 RATIO (10-20); Calcium,Total 9.1 mg/dL (8.5-10.1); Chloride 97 mmol/L (98-107); Creatinine, Serum 0.91 mg/dL (0.70-1.30); EST Glomerular Filtration Rate 88 mL/min (>60); Est Glom Filt Rate - Afr Amer 107 mL/min (>60); Glucose 101 mg/dL (74-106); Potassium 3.3 mmol/L (3.5-5.1); Sodium Level 134 mmol/L (136-145)
[2021-08-28 09:00] LABS: Platelet Estimate MOD DEC (ADEQ)
== END ==
LOC: OLS.WHLTCC 04:00
PROVIDERS: PCP Nurse Practitioner Family; Visit Provider Family Medicine
DX: R53.83 Other fatigue (principal); I12.9 Hypertensive chronic kidney disease with stage 1 through stage 4 chronic kidney disease, or unspecified chronic kidney disease; N18.9 Chronic kidney disease, unspecified; Z86.73 Personal history of transient ischemic attack (TIA), and cerebral infarction without residual deficits
CPT/HCPCS: 36415; 80048; 85025

== ENCOUNTER → 2021-09-04 04:00 | Outpatient (REF) | payer MEDICARE, MEDICAID, SELFPAY ==
[2021-09-04 06:29] LABS: Absolute Lymphocyte Count 1.55 X10^3/uL (0.83-4.51); Basophil# 0.01 X10^3/uL; Basophil% 0.1 % (0-1); Eosinophil# 0.07 X10^3/uL; Eosinophils% 0.8 % (0-5); Hematocrit 32.8 % (40-54); Hemoglobin 11.3 g/dL (13.0-16.5); Lymphocyte # 1.55 X10^3/ul (0.83-4.51); Lymphocyte % 18.2 % (19-41); Mean Corp Hgb Conc 34.5 g/dL (32-36); Mean Corpuscular Hgb 31.3 pg (27.0-32.0); Mean Corpuscular Volume 90.9 fL (80-94); Mean Platelet Vol. 9.6 fl (6.2-12.0); Monocyte# 0.69 X10^3/uL; Monocyte% 8.1 % (0-10); NRBC Flagged by Analyzer 0 % (0-5); Neutrophil # 6.03 X10^3/uL (2.7-7.7); Neutrophil % 70.7 % (47-70); Platelet Count 186 K/mm3 (150-450); Red Blood Count 3.61 M/mm3 (4.6-6.2); White Blood Count 8.5 K/mm3 (4.4-11.0)
[2021-09-04 06:39] LABS: Anion Gap 8 (5-15); BUN 31 mg/dL (7-18); BUN/Creat Ratio 31.5 RATIO (10-20); Calcium,Total 8.4 mg/dL (8.5-10.1); Chloride 100 mmol/L (98-107); Creatinine, Serum 0.98 mg/dL (0.70-1.30); EST Glomerular Filtration Rate 81 mL/min (>60); Est Glom Filt Rate - Afr Amer 98 mL/min (>60); Glucose 79 mg/dL (74-106); Potassium 3.4 mmol/L (3.5-5.1); Sodium Level 136 mmol/L (136-145)
== END ==
LOC: OLS.WHLTCC 04:00
PROVIDERS: PCP Nurse Practitioner Family; Visit Provider Family Medicine
DX: R53.83 Other fatigue (principal); G45.9 Transient cerebral ischemic attack, unspecified; I12.9 Hypertensive chronic kidney disease with stage 1 through stage 4 chronic kidney disease, or unspecified chronic kidney disease; N18.9 Chronic kidney disease, unspecified
CPT/HCPCS: 36415; 80048; 85025

== ENCOUNTER → 2021-09-11 05:00 | Outpatient (REF) | payer MEDICARE, MEDICAID, SELFPAY ==
[2021-09-11 07:52] LABS: Absolute Lymphocyte Count 1.24 X10^3/uL (0.83-4.51); Absolute Neutrophil Count 4.8 X10^3/uL (2.0-7.7); Basophil# 0.03 X10^3/uL; Basophil% 0.4 % (0-1); Eosinophil# 0.07 X10^3/uL; Hematocrit 31.9 % (40-54); Hemoglobin 10.7 g/dL (13.0-16.5); Lymphocyte # 1.24 X10^3/ul (0.83-4.51); Lymphocyte % 18.3 % (19-41); Mean Corp Hgb Conc 33.5 g/dL (32-36); Mean Corpuscular Volume 92.5 fL (80-94); Mean Platelet Vol. 10.5 fl (6.2-12.0); Monocyte# 0.57 X10^3/uL; Monocyte% 8.4 % (0-10); NRBC Flagged by Analyzer 0 % (0-5); Neutrophil # 4.84 X10^3/uL (2.7-7.7); Neutrophil % 71.5 % (47-70); Platelet Count 133 K/mm3 (150-450); RBC Distribution Width CV 14.2 % (11.6-14.6); RBC Distribution Width SD 47.7 fl (35.1-43.9); Red Blood Count 3.45 M/mm3 (4.6-6.2); White Blood Count 6.8 K/mm3 (4.4-11.0)
[2021-09-11 08:36] LABS: Anion Gap 8 (5-15); BUN 27 mg/dL (7-18); BUN/Creat Ratio 30.2 RATIO (10-20); Chloride 104 mmol/L (98-107); Creatinine, Serum 0.89 mg/dL (0.70-1.30); EST Glomerular Filtration Rate 90 mL/min (>60); Est Glom Filt Rate - Afr Amer 109 mL/min (>60); Glucose 81 mg/dL (74-106); Potassium 3.2 mmol/L (3.5-5.1); Sodium Level 140 mmol/L (136-145)
== END ==
LOC: OLS.WHLTCC 05:00
PROVIDERS: PCP Nurse Practitioner Family; Visit Provider Family Medicine
DX: R53.83 Other fatigue (principal); G45.9 Transient cerebral ischemic attack, unspecified; I12.9 Hypertensive chronic kidney disease with stage 1 through stage 4 chronic kidney disease, or unspecified chronic kidney disease; N18.9 Chronic kidney disease, unspecified
CPT/HCPCS: 36415; 80048; 85025

== ENCOUNTER → 2021-11-14 | Outpatient (REF) | payer MEDICARE, MEDICAID, SELFPAY ==
[2021-11-14 08:57] LABS: Absolute Lymphocyte Count 1.34 X10^3/uL (0.83-4.51); Absolute Neutrophil Count 4.3 X10^3/uL (2.0-7.7); Basophil# 0.03 X10^3/uL; Basophil% 0.5 % (0-1); Eosinophil# 0.08 X10^3/uL; Eosinophils% 1.3 % (0-5); Hematocrit 34.5 % (40-54); Hemoglobin 11.6 g/dL (13.0-16.5); Lymphocyte # 1.34 X10^3/ul (0.83-4.51); Lymphocyte % 21.4 % (19-41); Mean Corp Hgb Conc 33.6 g/dL (32-36); Mean Corpuscular Hgb 31.4 pg (27.0-32.0); Mean Corpuscular Volume 93.5 fL (80-94); Mean Platelet Vol. 10.5 fl (6.2-12.0); Monocyte# 0.51 X10^3/uL; Monocyte% 8.2 % (0-10); NRBC Flagged by Analyzer 0 % (0-5); Neutrophil # 4.27 X10^3/uL (2.7-7.7); Neutrophil % 68.3 % (47-70); Platelet Count 147 K/mm3 (150-450); RBC Distribution Width CV 13.7 % (11.6-14.6); RBC Distribution Width SD 46.2 fl (35.1-43.9); Red Blood Count 3.69 M/mm3 (4.6-6.2); White Blood Count 6.3 K/mm3 (4.4-11.0)
[2021-11-14 09:12] LABS: Anion Gap 9 (5-15); BUN 26 mg/dL (7-18); Calcium,Total 9.3 mg/dL (8.5-10.1); Chloride 104 mmol/L (98-107); Creatinine, Serum 0.93 mg/dL (0.70-1.30); EST Glomerular Filtration Rate 86 mL/min (>60); Est Glom Filt Rate - Afr Amer 105 mL/min (>60); Glucose 79 mg/dL (74-106); Potassium 3.6 mmol/L (3.5-5.1); Sodium Level 141 mmol/L (136-145)
== END | disposition home or self-care (01) ==
LOC: OLS.WHLEAS 05:00
PROVIDERS: PCP Nurse Practitioner Family; Visit Provider Family Medicine
DX: G12.21 Amyotrophic lateral sclerosis (principal); G81.91 Hemiplegia, unspecified affecting right dominant side; R54 Age-related physical debility; R26.2 Difficulty in walking, not elsewhere classified; R27.8 Other lack of coordination; Z74.1 Need for assistance with personal care
CPT/HCPCS: 36415; 80048; 85025

== ENCOUNTER → 2022-02-13 | Outpatient (REF) | payer MEDICARE, MEDICAID, SELFPAY ==
[2022-02-13 08:54] LABS: Absolute Lymphocyte Count 1.56 X10^3/uL (0.83-4.51); Absolute Neutrophil Count 4.1 X10^3/uL (2.0-7.7); Basophil# 0.03 X10^3/uL; Basophil% 0.5 % (0-1); Eosinophil# 0.07 X10^3/uL; Eosinophils% 1.1 % (0-5); Hematocrit 37.4 % (40-54); Hemoglobin 12.6 g/dL (13.0-16.5); Lymphocyte # 1.56 X10^3/ul (0.83-4.51); Lymphocyte % 24.9 % (19-41); Mean Corp Hgb Conc 33.7 g/dL (32-36); Mean Corpuscular Hgb 31.6 pg (27.0-32.0); Mean Corpuscular Volume 93.7 fL (80-94); Mean Platelet Vol. 10.9 fl (6.2-12.0); Monocyte# 0.51 X10^3/uL; Monocyte% 8.1 % (0-10); NRBC Flagged by Analyzer 0 % (0-5); Neutrophil # 4.09 X10^3/uL (2.7-7.7); Neutrophil % 65.2 % (47-70); Platelet Count 144 K/mm3 (150-450); RBC Distribution Width CV 13.1 % (11.6-14.6); RBC Distribution Width SD 44.3 fl (35.1-43.9); Red Blood Count 3.99 M/mm3 (4.6-6.2); White Blood Count 6.3 K/mm3 (4.4-11.0)
[2022-02-13 09:03] LABS: Anion Gap 8 (5-15); BUN 24 mg/dL (7-18); Calcium,Total 9.2 mg/dL (8.5-10.1); Chloride 101 mmol/L (98-107); EST Glomerular Filtration Rate 79 mL/min (>60); Est Glom Filt Rate - Afr Amer 96 mL/min (>60); Glucose 85 mg/dL (74-106); Potassium 3.3 mmol/L (3.5-5.1); Sodium Level 140 mmol/L (136-145)
== END | disposition home or self-care (01) ==
LOC: OLS.WHLEAS 05:00
PROVIDERS: PCP Nurse Practitioner Family; Visit Provider Family Medicine
DX: G12.21 Amyotrophic lateral sclerosis (principal); G81.91 Hemiplegia, unspecified affecting right dominant side; N18.30 Chronic kidney disease, stage 3 unspecified; R54 Age-related physical debility; R26.2 Difficulty in walking, not elsewhere classified; R27.8 Other lack of coordination; Z74.1 Need for assistance with personal care
CPT/HCPCS: 36415; 80048; 85025

== ENCOUNTER → 2022-05-15 | Outpatient (REF) | payer SELFPAY ==
[2022-05-15 09:04] LABS: Absolute Lymphocyte Count 1.42 X10^3/uL (0.83-4.51); Absolute Neutrophil Count 3.5 X10^3/uL (2.0-7.7); Basophil# 0.02 X10^3/uL; Basophil% 0.4 % (0-1); Eosinophils% 1.8 % (0-5); Hematocrit 35.5 % (40-54); Hemoglobin 11.7 g/dL (13.0-16.5); Lymphocyte # 1.42 X10^3/ul (0.83-4.51); Lymphocyte % 26.2 % (19-41); Mean Corpuscular Hgb 31.4 pg (27.0-32.0); Mean Corpuscular Volume 95.2 fL (80-94); Mean Platelet Vol. 10.6 fl (6.2-12.0); Monocyte# 0.41 X10^3/uL; Monocyte% 7.6 % (0-10); NRBC Flagged by Analyzer 0 % (0-5); Neutrophil # 3.45 X10^3/uL (2.7-7.7); Neutrophil % 63.8 % (47-70); Platelet Count 125 K/mm3 (150-450); RBC Distribution Width CV 13.2 % (11.6-14.6); RBC Distribution Width SD 45.5 fl (35.1-43.9); Red Blood Count 3.73 M/mm3 (4.6-6.2); White Blood Count 5.4 K/mm3 (4.4-11.0)
[2022-05-15 09:34] LABS: Anion Gap 6 (5-15); BUN 20 mg/dL (7-18); BUN/Creat Ratio 23.7 RATIO (10-20); Calcium,Total 9.6 mg/dL (8.5-10.1); Chloride 104 mmol/L (98-107); Creatinine, Serum 0.84 mg/dL (0.70-1.30); EST Glomerular Filtration Rate 96 mL/min (>60); Est Glom Filt Rate - Afr Amer 117 mL/min (>60); Glucose 78 mg/dL (74-106); Potassium 3.1 mmol/L (3.5-5.1); Sodium Level 141 mmol/L (136-145)
== END ==
LOC: OLS.WHLEAS 04:00
PROVIDERS: PCP Nurse Practitioner Family; Visit Provider Family Medicine
DX: N18.30 Chronic kidney disease, stage 3 unspecified (principal); G12.21 Amyotrophic lateral sclerosis; G81.91 Hemiplegia, unspecified affecting right dominant side; R54 Age-related physical debility; R26.2 Difficulty in walking, not elsewhere classified; R27.8 Other lack of coordination
CPT/HCPCS: 36415; 80048; 85025